=== PATIENT | male | born 1965 | race Two or more races ===

== ENCOUNTER 2017-03-05 00:43 | Inpatient (IN) | payer OTHER ==
--- NOTE | 2017-03-05 02:32 | HP ---
COWS - Scale Resting Pulse: 2= SD 101-120 Sweatin=Flushed/Facial Moisture Restless Observation: 1= Difficult to Sit Still Pupil Size: 1= Pupils >than Normal Bone or Joint Aches: 2= Severe Diffuse Aches Runny Nose/ Eye Tearin= Runny Nose/Eyes GI Upset > 30mins: 2= Nausea/Diarrhea Tremor Observation: 2= Slight Tremor Visible Yawning Observation: 1= 1-2x During Session Anxiety or Irritability: 2=Irritable/Anxious Goose Flesh Skin: 0=Smooth Skin COWS Score: 17 CIWA Score - CIWA Score Nausea/Vomitin Muscle Tremors: 2 Anxiety: 3 Agitation: 3 Paroxysmal Sweats: 2 Orientation: 1-Uncertain about Date Tacttile Disturbances: 1-Very Mild Itch/Numbness Auditory Disturbances: 0-None Visual Disturbances: 0-None Headache: 1-Very Mild CIWA-Ar Total Score: 15 Admission ROS S - HPI Chief Complaint: WITHDRAWAL SYMPTOMS Allergies/Adverse Reactions: Allergies Allergy/AdvReac Type Severity Reaction Status Date / Time Fish Containing Products Allergy Severe Verified 08/19/16 16:44 History of Present Illness: 51 Y.O.MAN WITH AN EXTENSIVE HISTORY OF ALCOHOL, MORPHINE AND CRACK COCAINE DEPENDENCE IS HERE FOR DETOX. Exam Limitations: No Limitations - Ebola screening Have you traveled outside of the country in the last 21 days: No - Review of Systems Constitutional: Chills, Diaphoresis, Loss of Appetite, Night Sweats, Changes in sleep, Unintentional Wgt. Loss EENT: reports: Tearing, Nose Congestion Respiratory: reports: No Symptoms reported Cardiac: reports: No Symptoms Reported GI: reports: Diarrhea, Vomiting, Abdominal cramping : reports: No Symptoms Reported Musculoskeletal: reports: Back Pain Integumentary: reports: No Symptoms Reported Neuro: reports: Tremors Endocrine: reports: No Symptoms Reported Hematology: reports: No Symptoms Reported Psychiatric: reports: Mood/Affect Appropiate, Anxious Other Systems: Reviewed and Negative Patient History - Patient Medical History Hx Anemia: No Hx Asthma: No Hx Chronic Obstructive Pulmonary Disease (COPD): No Hx Cancer: No Hx Cardiac Disorders: No Hx Congestive Heart Failure: No Hx Hypertension: Yes (on med) Hx Hypercholesterolemia: No Hx Pacemaker: No HX Cerebrovascular Accident: Yes (old cva [id number]) Hx Seizures: No Hx Dementia: No Hx Diabetes: Yes (on med ) Hx Gastrointestinal Disorders: No Hx Liver Disease: No Hx Genitourinary Disorders: No Hx Sexually Transmitted Disorders: No Hx Renal Disease (ESRD): No Hx Thyroid Disease: No Hx Human Immunodeficiency Virus (HIV): No (last 2015) Hx Hepatitis C: No Hx Depression: Yes (no med,did not want to see psychiatrist) Hx Suicide Attempt: No Hx Bipolar Disorder: No Hx Schizophrenia: No - Patient Surgical History Past Surgical History: Yes Hx Neurologic Surgery: No Hx Orthopedic Surgery: Yes (arthroscopic surgery of b/l shoulders,right knee) Anesthesia Reaction: No - PPD History Previous Implant?: Yes Documented Results: Negative w/o proof PPD to be Administered?: Yes - Reproductive History Patient is a Female of Child Bearing Age (11 -55 yrs old): No - Smoking Cessation Smoking history: Current every day smoker Have you smoked in the past 12 months: Yes Aproximately how many cigarettes per day: 10 Cigars Per Day: 0 Hx Chewing Tobacco Use: No Initiated information on smoking cessation: Yes 'Breaking Loose' booklet given: 03/05/17 - Substance & Tx. History Hx Alcohol Use: Yes Hx Substance Use: Yes Substance Use Type: Alcohol, Cocaine, Opiates, Prescribed Hx Substance Use Treatment: Yes (Detox and rehab ) - Substances Abused Alcohol Route: Oral Frequency: Daily Amount used: 3 pints of liquor and 12-15 cans of 22oz beers Age of first use: 18 Date of Last Use: 03/05/17 Crack Route: Smoking Frequency: Daily Amount used: $400 Age of first use: 32 Date of Last Use: 03/05/17 morphine Route: Oral Frequency: Daily Amount used: 120mg Age of first use: 51 Date of Last Use: 03/04/17 Family Disease History - Family Disease History Family Disease History: Other: Father (Heroin dependent ,) Admission Physical Exam BHS - Vital Signs Vital Signs: Last Vital Signs Temp Pulse Resp BP Pulse Ox 98.0 F 101 H 18 163/120 03/05/17 02:49 03/05/17 02:49 03/05/17 02:49 03/05/17 02:49 - Physical General Appearance: Yes: Tremorous, Irritable, Sweating, Anxious HEENTM: Yes: Normal Voice Respiratory: Yes: Chest Non-Tender, Lungs Clear, Normal Breath Sounds, No Respiratory Distress, No Accessory Muscle Use Neck: Yes: No masses,lesions,Nodules, Trachea in good position Breast: Yes: Breast Exam Deferred Cardiology: Yes: Regular Rhythm, Tachycardia Abdominal: Yes: Non Tender, Flat, Soft Genitourinary: Yes: Other (NO COMPLAINTS REPORTED) Back: Yes: Normal Inspection Musculoskeletal: Yes: Back pain, Muscle Pain, Other (B/L KNEE PAIN; AMBULATES WITH THE USE OF A CANE.) Extremities: Yes: Tremors Neurological: Yes: Alert, Normal Mood/Affect, Normal Response Integumentary: Yes: Normal Color, Dry, Warm Lymphatic: Yes: Within Normal Limits - Diagnostic (1) Alcohol dependence with uncomplicated withdrawal Current Visit: Yes Status: Chronic (2) Cocaine dependence Current Visit: Yes Status: Chronic (3) DM type 2 (diabetes mellitus, type 2) Current Visit: Yes Status: Chronic (4) Essential hypertension Current Visit: Yes Status: Chronic Cleared for Admission [facility] - Detox or Rehab [facility] Level of Care: Medically Managed Detox Regimen/Protocol: Valium (Refuses methadone ) [facility] Breath Alcohol Content Breath Alcohol Content: 0 Vital Signs - Vital Signs Vital Signs Refused: No Temperature: 98.0 F Temperature Source: Oral Pulse Rate: 101 Respiratory Rate: 18 Blood Pressure: 163/120 BP Location: Left Arm Blood Pressure Position: Sitting - Height Height: 6 ft 1 in - Weight Weight: 229 lb Weight Measurement Method: Standing Scale Body Mass Index (BMI): 30.2 Urine Drug Screen - Test Device Lot Number: [id number] Expiration Date: 11/03/18 - Control Is Test Valid: Yes - Results Drug Screen Negative: No Urine Drug Screen Results: JIMMY-Cocaine, OPI-Opiates
[2017-03-05] MEDS ORDERED: ACETAMINOPHEN 325 MG TABLET (FP) PO PRN (02:39)
[2017-03-05] MEDS ORDERED: P-EPHED 60MG/TRIPROLIDI 2.5MG TABLET PO PRN (02:39)
[2017-03-05] MEDS ORDERED: diphenhydrAMINE HCL 50 MG CAPSULE PO PRN (02:39)
[2017-03-05] MEDS ORDERED: hydrOXYzine PAMOATE 50 MG CAPSULE (FP) PO PRN (02:39)
[2017-03-05] MEDS ORDERED: MAGNESIUM HYDROX 2400MG/30ML ORAL SUSPENSION 30 ML CUP PO PRN (02:39)
[2017-03-05] MEDS ORDERED: MAG HYDROX/AL HYDROX/SIMETH 30 ML UNIT-DOSE CUP PO PRN (02:39)
[2017-03-05] MEDS ORDERED: MENTHOL/PHENOL 1 EACH UD MM PRN (02:39)
[2017-03-05] MEDS ORDERED: NICOTINE POLACRILEX 2 MG GUM BC PRN (02:39)
[2017-03-05] MEDS ORDERED: diazePAM 5 MG TABLET PO ONE (02:39)
[2017-03-05] MEDS ORDERED: LOPERAMIDE HCL 2 MG CAPSULE PO PRN (02:39)
[2017-03-05] MEDS ORDERED: MAGNESIUM CITRATE 300 ML BOTTLE PO PRN (02:39)
[2017-03-05] MEDS ORDERED: guaiFENesin/D-METHORPHAN HB 10 ML UNIT-DOSE CUPS PO PRN (02:39)
[2017-03-05 02:50] VITALS: BMI 30.2
[2017-03-05] MEDS ORDERED: cloNIDine HCL 0.1 MG TABLET PO PRN (03:05)
[2017-03-05] MEDS ORDERED: cloNIDine HCL 0.1 MG TABLET ONE (03:45)
[2017-03-05] MEDS: diazePAM 5 MG TABLET PO PRN ×3 (03:56→20:16)
[2017-03-05] MEDS: diazePAM 5 MG TABLET PO SCH ×3 (05:22→22:09)
[2017-03-05] MEDS: metFORMIN HCL 500 MG TABLET (FP) PO SCH (06:21)
[2017-03-05] MEDS: LISINOPRIL 20 MG TABLET (FP) PO SCH (10:15)
[2017-03-05] MEDS: PRENATAL VITAMINS W/ FOLIC ACID TABLET (FP) PO SCH (10:15)
[2017-03-05] MEDS: NIFEdipine E.R 60 MG TABLET (UD) PO SCH (10:15)
[2017-03-05] MEDS: IBUPROFEN 400 MG TABLET (FP) PO PRN (10:16)
[2017-03-05] MEDS ORDERED: cloNIDine HCL 0.1 MG TABLET PO ONE (10:45)
--- NOTE | 2017-03-05 10:47 | PN ---
[facility] CIWA - CIWA Score Nausea/Vomitin-No Nausea/No Vomiting Muscle Tremors: 3 Anxiety: 3 Agitation: 4-Moderately Restless Paroxysmal Sweats: 3 Orientation: 0-Oriented Tacttile Disturbances: 0-None Auditory Disturbances: 0-None Visual Disturbances: 0-None Headache: 0-None Present CIWA-Ar Total Score: 13 BHS COWS - Scale Resting Pulse: 1= NC 81-100 Sweatin=Flushed/Facial Moisture Restless Observation: 1= Difficult to Sit Still Pupil Size: 0= Normal to Room Light Bone or Joint Aches: 2= Severe Diffuse Aches Runny Nose/ Eye Tearin= Runny Nose/Eyes GI Upset > 30mins: 1= Stomach Cramp Tremor Observation of Outstretched Hands: 2= Slight Tremor Visible Yawning Observation: 2= >3x During Session Anxiety or Irritability: 2=Irritable/Anxious Goose Flesh Skin: 0=Smooth Skin COWS Score: 15 BHS Progress Note (SOAP) Subjective: I will not be detoxed with methadone for my oxycodone intake. I refuse all the methadone taper sweats agitation anxiety interrupted sleep Objective: 03/05/17 10:47 Vital Signs Temperature 98.1 F 03/05/17 10:12 Pulse Rate 91 H 03/05/17 10:12 Respiratory Rate 16 03/05/17 10:12 Blood Pressure 144/100 03/05/17 10:12 O2 Sat by Pulse Oximetry (%) Laboratory Tests 03/05/17 05:21 POC Glucometer 141 labs pending awake/alert ambulating no acute distress encouraged to start him on a methadone taper; pt refused started clonidine 0.1mg bid continue valium taper as pt requested. Assessment: 03/05/17 10:48 withdrawal sx Plan: continue detox increase fluids
[2017-03-05 16:40] LABS: URINE APPEARANCE CLEAR; URINE BILIRUBIN NEGATIVE (NEGATIVE); URINE BLOOD NEGATIVE (NEGATIVE); URINE COLOR YELLOW; URINE GLUCOSE (UA) NEGATIVE (NEGATIVE); URINE KETONE NEGATIVE (NEGATIVE); URINE LEUK ESTERASE NEGATIVE (NEGATIVE); URINE NITRITE NEGATIVE (NEGATIVE); URINE PROTEIN NEGATIVE (NEGATIVE); URINE UROBILINOGEN NEGATIVE E.U./dl (0.2-1.0)
[2017-03-05] MEDS: cloNIDine HCL 0.1 MG TABLET PO SCH (22:10)
[2017-03-05] MEDS: THIAMINE HCL 100 MG TABLET (FP) PO SCH (22:10)
[2017-03-06] MEDS: diazePAM 5 MG TABLET PO SCH ×3 (05:26→22:12)
[2017-03-06] MEDS: metFORMIN HCL 500 MG TABLET (FP) PO SCH (07:47)
[2017-03-06 10:35] LABS: MCH 30.2 pg (25.7-33.7); MEAN CELL VOLUME 91.5 fl (80-96); PLATELET COUNT 181 K/MM3 (134-434); RDW 14.5 % (11.9-15.9); WHITE BLOOD COUNT 7.7 K/mm3 (4.0-10.0)
[2017-03-06] MEDS: LISINOPRIL 20 MG TABLET (FP) PO SCH (10:36)
[2017-03-06] MEDS: PRENATAL VITAMINS W/ FOLIC ACID TABLET (FP) PO SCH (10:36)
[2017-03-06] MEDS: NIFEdipine E.R 60 MG TABLET (UD) PO SCH (10:37)
[2017-03-06] MEDS: cloNIDine HCL 0.1 MG TABLET PO SCH ×2 (10:37→22:12)
[2017-03-06] MEDS: diazePAM 5 MG TABLET PO PRN ×2 (10:37→20:31)
[2017-03-06 10:57] LABS: BILIRUBIN,TOTAL 0.3 mg/dL (0.2-1.0); CALCIUM 8.7 mg/dL (8.5-10.1); COCKROFT - GAULT 98.76; CREATININE 1.3 mg/dL (0.7-1.3); TOT PROT 5.7 g/dl (6.4-8.2)
--- NOTE | 2017-03-06 15:07 | PN ---
[facility] CIWA - CIWA Score Nausea/Vomitin-No Nausea/No Vomiting Muscle Tremors: 4-Moderate,w/Arms Extend Anxiety: 4-Mod. Anxious/Guarded Agitation: 4-Moderately Restless Paroxysmal Sweats: 3 Orientation: 0-Oriented Tacttile Disturbances: 0-None Auditory Disturbances: 0-None Visual Disturbances: 0-None Headache: 0-None Present CIWA-Ar Total Score: 15 S Progress Note (SOAP) Subjective: Tremors,anxiety,sweating,interrupted sleep,restless Objective: 03/06/17 15:06 Vital Signs - 8 hr 03/06/17 03/06/17 10:00 14:20 Temperature 98.1 F 97.9 F Pulse Rate 100 H 91 H Respiratory 20 20 Rate Blood Pressure 141/75 139/81 Laboratory Last Values WBC 7.7 K/mm3 (4.0-10.0) 03/06/17 07:00 RBC 5.23 M/mm3 (4.00-5.60) 03/06/17 07:00 Hgb 15.8 GM/dL (11.7-16.9) 03/06/17 07:00 Hct 47.9 % (35.4-49) 03/06/17 07:00 MCV 91.5 fl (80-96) 03/06/17 07:00 MCHC 33.0 g/dl (32.0-35.9) 03/06/17 07:00 RDW 14.5 % (11.9-15.9) 03/06/17 07:00 Plt Count 181 K/MM3 (134-434) 03/06/17 07:00 MPV 11.0 fl (7.5-11.1) 03/06/17 07:00 Sodium 145 mmol/L (136-145) 03/06/17 07:00 Potassium 4.2 mmol/L (3.5-5.1) 03/06/17 07:00 Chloride 111 mmol/L (98-107) H 03/06/17 07:00 Carbon Dioxide 28 mmol/L (21-32) 03/06/17 07:00 Anion Gap 6 (8-16) L 03/06/17 07:00 BUN 18 mg/dL (7-18) 03/06/17 07:00 Creatinine 1.3 mg/dL (0.7-1.3) 03/06/17 07:00 Creat Clearance w eGFR 58.20 (>60) 03/06/17 07:00 POC Glucometer 141 UNITS (()) 03/05/17 05:21 Random Glucose 115 mg/dL (74-106) H 03/06/17 07:00 Calcium 8.7 mg/dL (8.5-10.1) 03/06/17 07:00 Total Bilirubin 0.3 mg/dL (0.2-1.0) 03/06/17 07:00 AST 16 U/L (15-37) 03/06/17 07:00 ALT 28 U/L (12-78) 03/06/17 07:00 Alkaline Phosphatase 53 U/L (45-117) 03/06/17 07:00 Total Protein 5.7 g/dl (6.4-8.2) L 03/06/17 07:00 Albumin 3.0 g/dl (3.4-5.0) L 03/06/17 07:00 Urine Color Yellow 03/05/17 15:00 Urine Appearance Clear 03/05/17 15:00 Urine pH 5.0 (5.0-8.0) 03/05/17 15:00 Ur Specific [place] 1.025 (1.005-1.025) 03/05/17 15:00 Urine Protein Negative (NEGATIVE) 03/05/17 15:00 Urine Glucose (UA) Negative (NEGATIVE) 03/05/17 15:00 Urine Ketones Negative (NEGATIVE) 03/05/17 15:00 Urine Blood Negative (NEGATIVE) 03/05/17 15:00 Urine Nitrite Negative (NEGATIVE) 03/05/17 15:00 Urine Bilirubin Negative (NEGATIVE) 03/05/17 15:00 Urine Urobilinogen Negative E.U./dl (0.2-1.0) 03/05/17 15:00 Ur Leukocyte Esterase Negative (NEGATIVE) 03/05/17 15:00 labs noted Assessment: 03/06/17 15:07 Withdrawal sx. Plan: Continue detox
--- NOTE | 2017-03-06 19:24 | EKG ---
Test Reason : Blood Pressure : / mmHG Vent. Rate : 089 BPM Atrial Rate : 089 BPM P-R Int : 156 ms QRS Dur : 094 ms QT Int : 378 ms P-R-T Axes : 059 -19 017 degrees QTc Int : 459 ms NORMAL SINUS RHYTHM NORMAL ECG NO PREVIOUS ECGS AVAILABLE Confirmed by KARMEN LOPEZ MD ([id number]) on 03/06/2017 7:24:12 PM Referred By: Stephane Moore Confirmed By:KARMEN LOPEZ MD
[2017-03-06] MEDS: THIAMINE HCL 100 MG TABLET (FP) PO SCH (22:12)
[2017-03-07] MEDS: metFORMIN HCL 500 MG TABLET (FP) PO SCH (06:49)
[2017-03-07] MEDS: cloNIDine HCL 0.1 MG TABLET PO SCH ×2 (10:18→22:14)
[2017-03-07] MEDS: PRENATAL VITAMINS W/ FOLIC ACID TABLET (FP) PO SCH (10:18)
[2017-03-07] MEDS: LISINOPRIL 20 MG TABLET (FP) PO SCH (10:18)
[2017-03-07] MEDS: NIFEdipine E.R 60 MG TABLET (UD) PO SCH (10:18)
[2017-03-07] MEDS: diazePAM 5 MG TABLET PO SCH ×2 (10:18→22:15)
--- NOTE | 2017-03-07 11:55 | PN ---
BHS Progress Note (SOAP) Subjective: Sweating,interrupted sleep,restless Objective: 03/07/17 11:53 Vital Signs - 8 hr 03/07/17 03/07/17 06:00 09:54 Temperature 97.1 F L 98.4 F Pulse Rate 71 102 H Respiratory 20 20 Rate Blood Pressure 124/80 137/88 Laboratory Last Values WBC 7.7 K/mm3 (4.0-10.0) 03/06/17 07:00 RBC 5.23 M/mm3 (4.00-5.60) 03/06/17 07:00 Hgb 15.8 GM/dL (11.7-16.9) 03/06/17 07:00 Hct 47.9 % (35.4-49) 03/06/17 07:00 MCV 91.5 fl (80-96) 03/06/17 07:00 MCHC 33.0 g/dl (32.0-35.9) 03/06/17 07:00 RDW 14.5 % (11.9-15.9) 03/06/17 07:00 Plt Count 181 K/MM3 (134-434) 03/06/17 07:00 MPV 11.0 fl (7.5-11.1) 03/06/17 07:00 Sodium 145 mmol/L (136-145) 03/06/17 07:00 Potassium 4.2 mmol/L (3.5-5.1) 03/06/17 07:00 Chloride 111 mmol/L (98-107) H 03/06/17 07:00 Carbon Dioxide 28 mmol/L (21-32) 03/06/17 07:00 Anion Gap 6 (8-16) L 03/06/17 07:00 BUN 18 mg/dL (7-18) 03/06/17 07:00 Creatinine 1.3 mg/dL (0.7-1.3) 03/06/17 07:00 Creat Clearance w eGFR 58.20 (>60) 03/06/17 07:00 POC Glucometer 100 UNITS (()) 03/07/17 06:37 Random Glucose 115 mg/dL (74-106) H 03/06/17 07:00 Calcium 8.7 mg/dL (8.5-10.1) 03/06/17 07:00 Total Bilirubin 0.3 mg/dL (0.2-1.0) 03/06/17 07:00 AST 16 U/L (15-37) 03/06/17 07:00 ALT 28 U/L (12-78) 03/06/17 07:00 Alkaline Phosphatase 53 U/L (45-117) 03/06/17 07:00 Total Protein 5.7 g/dl (6.4-8.2) L 03/06/17 07:00 Albumin 3.0 g/dl (3.4-5.0) L 03/06/17 07:00 Urine Color Yellow 03/05/17 15:00 Urine Appearance Clear 03/05/17 15:00 Urine pH 5.0 (5.0-8.0) 03/05/17 15:00 Ur Specific [place] 1.025 (1.005-1.025) 03/05/17 15:00 Urine Protein Negative (NEGATIVE) 03/05/17 15:00 Urine Glucose (UA) Negative (NEGATIVE) 03/05/17 15:00 Urine Ketones Negative (NEGATIVE) 03/05/17 15:00 Urine Blood Negative (NEGATIVE) 03/05/17 15:00 Urine Nitrite Negative (NEGATIVE) 03/05/17 15:00 Urine Bilirubin Negative (NEGATIVE) 03/05/17 15:00 Urine Urobilinogen Negative E.U./dl (0.2-1.0) 03/05/17 15:00 Ur Leukocyte Esterase Negative (NEGATIVE) 03/05/17 15:00 RPR Titer Nonreactive (NONREACTIVE) 03/06/17 07:00 labs noted Assessment: 03/07/17 11:54 Withdrawal sx. Plan: Continue detox
[2017-03-07] MEDS: diazePAM 5 MG TABLET PO PRN ×2 (13:46→17:41)
[2017-03-07] MEDS: THIAMINE HCL 100 MG TABLET (FP) PO SCH (22:14)
[2017-03-08] MEDS: metFORMIN HCL 500 MG TABLET (FP) PO SCH (07:39)
--- NOTE | 2017-03-08 08:38 | PN ---
BHS Progress Note (SOAP) Subjective: irritable agitation interrupted sleep Objective: 03/08/17 08:37 Vital Signs Temperature 98.9 F 03/08/17 06:42 Pulse Rate 75 03/08/17 06:42 Respiratory Rate 18 03/08/17 06:42 Blood Pressure 143/83 03/08/17 06:42 O2 Sat by Pulse Oximetry (%) awake/alert ambulating no acute distress Assessment: 03/08/17 08:38 withdrawal sx Plan: continue detox d/c in am
[2017-03-08] MEDS: PRENATAL VITAMINS W/ FOLIC ACID TABLET (FP) PO SCH (10:17)
[2017-03-08] MEDS: NIFEdipine E.R 60 MG TABLET (UD) PO SCH (10:18)
[2017-03-08] MEDS: LISINOPRIL 20 MG TABLET (FP) PO SCH (10:18)
[2017-03-08] MEDS: cloNIDine HCL 0.1 MG TABLET PO SCH ×2 (10:18→22:07)
[2017-03-08] MEDS: diazePAM 5 MG TABLET PO SCH ×2 (10:18→22:07)
[2017-03-08] MEDS: IBUPROFEN 400 MG TABLET (FP) PO PRN (16:30)
[2017-03-08] MEDS: THIAMINE HCL 100 MG TABLET (FP) PO SCH (22:07)
[2017-03-09] MEDS: metFORMIN HCL 500 MG TABLET (FP) PO SCH (08:09)
--- NOTE | 2017-03-09 08:52 | DS ---
[facility] Detox Discharge Summary Admission Date: 03/05/17 Discharge Date: 03/09/17 - History Present History: Alcohol Dependence, Cocaine Dependence - Physical Exam Results Vital Signs: Vital Signs Temperature 97.7 F 03/09/17 06:32 Pulse Rate 75 03/09/17 06:32 Respiratory Rate 18 03/09/17 06:32 Blood Pressure 129/76 03/09/17 06:32 O2 Sat by Pulse Oximetry (%) - Treatment Hospital Course: Detox Protocol Followed, Detoxed Safely, Responded well, Discharged Condition Good, Rehab Referral Accepted - Medication Discharge Medications: Ambulatory Orders Lisinopril [Prinivil -] 40 mg PO DAILY 08/19/16 Metformin HCl [Glucophage -] 500 mg PO BID 08/19/16 - Diagnosis (1) Alcohol dependence with uncomplicated withdrawal Current Visit: Yes Status: Chronic (2) Cocaine dependence Current Visit: Yes Status: Chronic Qualifiers: Substance use status: uncomplicated Qualified Code(s): F14.20 - Cocaine dependence, uncomplicated (3) DM type 2 (diabetes mellitus, type 2) Current Visit: Yes Status: Chronic Qualifiers: Diabetes mellitus complication status: without complication (4) Essential hypertension Current Visit: Yes Status: Chronic (5) Depression Current Visit: No Status: Acute (6) Old cerebrovascular accident without late effect Current Visit: No Status: Resolved (7) Opioid dependence with withdrawal Current Visit: No Status: Acute (8) Sleep apnea Current Visit: No Status: Acute - AMA Did Patient Leave Against Medical Advice: No
[2017-03-09] MEDS: LISINOPRIL 20 MG TABLET (FP) PO SCH (09:55)
[2017-03-09] MEDS: PRENATAL VITAMINS W/ FOLIC ACID TABLET (FP) PO SCH (09:55)
[2017-03-09] MEDS: cloNIDine HCL 0.1 MG TABLET PO SCH (09:56)
[2017-03-09] MEDS: NIFEdipine E.R 60 MG TABLET (UD) PO SCH (09:56)
[2017-03-09] MEDS ORDERED: diazePAM 5 MG TABLET PO SCH (10:00)
[2017-03-09 10:48] VITALS: BP 132/84; PULSE 91; TEMP 99.1
== END 2017-03-09 11:36 | disposition short-term general hospital (02) | DRG 773 ==
LOC: YASAS 00:43 → Y6N 02:59
PROVIDERS: ADMIT Internal Medicine; ATTEND Internal Medicine
PROC: HZ2ZZZZ Detoxification Services for Substance Abuse Treatment (ICD-10-PCS; principal; 2017-03-09)
DX: F11.23 Opioid dependence with withdrawal (principal); F14.20 Cocaine dependence, uncomplicated; F10.230 Alcohol dependence with withdrawal, uncomplicated; F32.9 Major depressive disorder, single episode, unspecified; E11.9 Type 2 diabetes mellitus without complications; I10 Essential (primary) hypertension; G47.30 Sleep apnea, unspecified; Z86.73 Personal history of transient ischemic attack (TIA), and cerebral infarction without residual deficits
CPT/HCPCS: 36415; 80053; 81003; 85027; 86593; 93005; 93010; J0735

== ENCOUNTER 2017-05-05 18:18 | Inpatient (IN) | payer OTHER ==
[2017-05-05 18:32] VITALS: BMI 29.7
--- NOTE | 2017-05-05 19:14 | HP ---
CIWA Score - CIWA Score Nausea/Vomitin Muscle Tremors: 3 Anxiety: 3 Agitation: 3 Paroxysmal Sweats: 2 Orientation: 0-Oriented Tacttile Disturbances: 2-Mild Itch/Numbness/Burn Auditory Disturbances: 2-Mild Harshness/Frighten Visual Disturbances: 2-Mild Sensitivity Headache: 2-Mild CIWA-Ar Total Score: 22 Admission ROS BHS - HPI Chief Complaint: i need help to stop drinking alcohol and cocaine Allergies/Adverse Reactions: Allergies Allergy/AdvReac Type Severity Reaction Status Date / Time Fish Containing Products Allergy Severe Verified 05/06/17 01:28 No Known Drug Allergies Allergy Verified 05/06/17 01:28 History of Present Illness: this 52 years old male with alcohol and cocaine dependence,seeking detox,last treatment [facility] 03/05/17 to 03/09/17 multiple admissions keep relapsing nicotine dependence multiple medical problem type 2 dm,htn, longest period of sobriety 10years Exam Limitations: No Limitations - Ebola screening Have you been sick,other than usual withdrawal symptoms: No - Review of Systems Constitutional: Loss of Appetite, Malaise, Night Sweats, Changes in sleep, Weakness EENT: reports: Nose Congestion Respiratory: reports: No Symptoms reported Cardiac: reports: Palpitations GI: reports: Diarrhea, Nausea, Vomiting, Abdominal cramping : reports: No Symptoms Reported Musculoskeletal: reports: Back Pain, Muscle Pain Integumentary: reports: Dryness Neuro: reports: Headache, Tremors Endocrine: reports: No Symptoms Reported Hematology: reports: No Symptoms Reported Psychiatric: reports: No Sypmtoms Reported, Judgement Intact, Mood/Affect Appropiate Patient History - Patient Medical History Hx Anemia: No Hx Asthma: No Hx Chronic Obstructive Pulmonary Disease (COPD): No Hx Cancer: No Hx Cardiac Disorders: No Hx Congestive Heart Failure: No Hx Hypertension: Yes (BP: 167/93) Hx Hypercholesterolemia: No Hx Pacemaker: No HX Cerebrovascular Accident: Yes (old cva [id number] cyrus [id number] ) Hx Seizures: No Hx Dementia: No Hx Diabetes: Yes (BGM: 93mg/dl) Hx Gastrointestinal Disorders: No Hx Liver Disease: No Hx Genitourinary Disorders: No Hx Sexually Transmitted Disorders: No Hx Renal Disease (ESRD): No Hx Thyroid Disease: No Hx Human Immunodeficiency Virus (HIV): No (last 2016 negative) Hx Hepatitis C: No Hx Depression: No (Denies) Hx Suicide Attempt: No Hx Bipolar Disorder: No Hx Schizophrenia: No Other Medical History: no suicidal,no homicidal - Patient Surgical History Past Surgical History: Yes Hx Neurologic Surgery: No Hx Cataract Extraction: No Hx Cardiac Surgery: No Hx Lung Surgery: No Hx Breast Surgery: No Hx Breast Biopsy: No Hx Abdominal Surgery: No Hx Appendectomy: No Hx Cholecystectomy: No Hx Genitourinary Surgery: No Hx Section: No Hx Orthopedic Surgery: Yes (arthroscopic surgery of b/l shoulders,right knee) Anesthesia Reaction: No - PPD History Previous Implant?: Yes Documented Results: Negative w/proof Date: 03/07/17 Results: 0mm PPD to be Administered?: No - Smoking Cessation Smoking history: Current every day smoker Have you smoked in the past 12 months: Yes Aproximately how many cigarettes per day: 20 Cigars Per Day: 0 Hx Chewing Tobacco Use: No Initiated information on smoking cessation: No 'Breaking Loose' booklet given: 05/05/17 - Substance & Tx. History Hx Alcohol Use: Yes Hx Substance Use: Yes Substance Use Type: Alcohol, Cocaine Hx Substance Use Treatment: Yes ([facility] 03/05/17 to 03/09/17) - Substances Abused Alcohol Route: Oral Frequency: Daily Amount used: Beer 1 case, Vodka 2-3 pints Age of first use: 18 Date of Last Use: 05/05/17 Cocaine Route: Smoking Frequency: Daily Amount used: $400 Age of first use: 18 Date of Last Use: 05/05/17 Family Disease History - Family Disease History Family Disease History: Other: Father (Heroin dependent ,) Admission Physical Exam [facility] - Vital Signs Vital Signs: Vital Signs - 24 hr 05/05/17 18:27 Temperature 96.9 F L Pulse Rate 90 Respiratory 20 Rate Blood Pressure 167/93 - Physical General Appearance: Yes: Moderate Distress, Tremorous, Irritable, Sweating, Anxious HEENTM: Yes: Normal ENT Inspection, Normocephalic, SHANNEN, Pharynx Normal Respiratory: Yes: Lungs Clear, Normal Breath Sounds, No Respiratory Distress Neck: Yes: Supple, Trachea in good position Breast: Yes: Within Normal Limits Cardiology: Yes: Within Normal Limits, Regular Rhythm, Regular Rate, S1, S2 Abdominal: Yes: Within Normal Limits, Normal Bowel Sounds, Non Tender, Soft Genitourinary: Yes: Within Normal Limits Back: Yes: Muscle Spasm Musculoskeletal: Yes: Back pain, Muscle Pain Extremities: Yes: Normal Range of Motion, Tremors Neurological: Yes: rip tailer II-XII NML intact, Fully Oriented, Alert, Motor Strength 5/5 Integumentary: Yes: Dry Lymphatic: Yes: Within Normal Limits - Diagnostic (1) Alcohol dependence with uncomplicated withdrawal Status: Acute (2) Cocaine dependence Status: Chronic Qualifiers: Substance use status: uncomplicated Qualified Code(s): F14.20 - Cocaine dependence, uncomplicated (3) DM type 2 (diabetes mellitus, type 2) Status: Chronic Qualifiers: Diabetes mellitus complication status: without complication (4) Essential hypertension Status: Chronic (5) Nicotine dependence Status: Chronic Cleared for Admission [facility] - Detox or Rehab [facility] Level of Care: Medically Managed Detox Regimen/Protocol: Valium [facility] Breath Alcohol Content Breath Alcohol Content: 0.058 Urine Drug Screen - Results Drug Screen Negative: No Urine Drug Screen Results: JIMMY-Cocaine
[2017-05-05] MEDS ORDERED: hydrOXYzine PAMOATE 50 MG CAPSULE (FP) PO PRN (19:33)
[2017-05-05] MEDS ORDERED: diazePAM 5 MG TABLET PO ONE (19:33)
[2017-05-05] MEDS ORDERED: LOPERAMIDE HCL 2 MG CAPSULE PO PRN (19:33)
[2017-05-05] MEDS ORDERED: MENTHOL/PHENOL 1 EACH UD MM PRN (19:33)
[2017-05-05] MEDS ORDERED: MAG HYDROX/AL HYDROX/SIMETH 30 ML UNIT-DOSE CUP PO PRN (19:33)
[2017-05-05] MEDS ORDERED: MAGNESIUM CITRATE 300 ML BOTTLE PO PRN (19:33)
[2017-05-05] MEDS ORDERED: MAGNESIUM HYDROX 2400MG/30ML ORAL SUSPENSION 30 ML CUP PO PRN (19:33)
[2017-05-05] MEDS ORDERED: guaiFENesin/D-METHORPHAN HB 10 ML UNIT-DOSE CUPS PO PRN (19:33)
[2017-05-05] MEDS ORDERED: P-EPHED 60MG/TRIPROLIDI 2.5MG TABLET PO PRN (19:33)
[2017-05-05] MEDS ORDERED: ACETAMINOPHEN 325 MG TABLET (FP) PO PRN (19:33)
[2017-05-05] MEDS: LISINOPRIL 20 MG TABLET (FP) PO SCH (20:12)
[2017-05-05] MEDS: THIAMINE HCL 100 MG TABLET (FP) PO SCH (22:19)
[2017-05-05] MEDS: diazePAM 5 MG TABLET PO SCH (22:19)
[2017-05-05] MEDS: diphenhydrAMINE HCL 50 MG CAPSULE PO PRN (22:20)
[2017-05-05 23:11] LABS: URINE APPEARANCE SLCLOUDY; URINE BILIRUBIN NEGATIVE (NEGATIVE); URINE BLOOD NEGATIVE (NEGATIVE); URINE COLOR YELLOW; URINE GLUCOSE (UA) NEGATIVE (NEGATIVE); URINE KETONE NEGATIVE (NEGATIVE); URINE LEUK ESTERASE NEGATIVE (NEGATIVE); URINE NITRITE NEGATIVE (NEGATIVE); URINE PROTEIN 1+ (NEGATIVE); URINE UROBILINOGEN NEGATIVE mg/dL (0.2-1.0)
[2017-05-05 23:22] LABS: URINE MUCUS RARE; URINE RBC 1 /hpf (0-3); URINE WBC 5 /hpf (3-5)
[2017-05-06] MEDS: diazePAM 5 MG TABLET PO SCH ×3 (05:56→22:25)
[2017-05-06] MEDS: metFORMIN HCL 500 MG TABLET (FP) PO SCH ×2 (06:22→17:30)
[2017-05-06 10:10] LABS: ALBUMIN 3.3 g/dl (3.4-5.0); ANION GAP 8 (8-16); CALCIUM 8.7 mg/dL (8.5-10.1); CO2 25 mmol/L (21-32); GLUCOSE,RANDOM 103 mg/dL (74-106); SGOT/AST 23 U/L (15-37); SGPT/ALT 33 U/L (12-78)
[2017-05-06 10:11] LABS: MCH 30.2 pg (25.7-33.7); MCHC 33.1 g/dl (32.0-35.9); MEAN CELL VOLUME 91.1 fl (80-96); MEAN PLT VOLUME 10.7 fl (7.5-11.1); PLATELET COUNT 188 K/MM3 (134-434); WHITE BLOOD COUNT 8.8 K/mm3 (4.0-10.0)
[2017-05-06 10:12] LABS: ALK PHOS 56 U/L (45-117); BILIRUBIN,TOTAL 0.5 mg/dL (0.2-1.0); TOT PROT 6.3 g/dl (6.4-8.2)
[2017-05-06] MEDS: NIFEdipine E.R 60 MG TABLET (UD) PO SCH (10:22)
[2017-05-06] MEDS: diazePAM 5 MG TABLET PO PRN ×2 (10:22→17:36)
[2017-05-06] MEDS: PRENATAL VITAMINS W/ FOLIC ACID TABLET (FP) PO SCH (10:22)
[2017-05-06] MEDS: LISINOPRIL 20 MG TABLET (FP) PO SCH (10:22)
--- NOTE | 2017-05-06 11:29 | EKG ---
Test Reason : Blood Pressure : / mmHG Vent. Rate : 082 BPM Atrial Rate : 082 BPM P-R Int : 150 ms QRS Dur : 092 ms QT Int : 400 ms P-R-T Axes : 057 010 030 degrees QTc Int : 467 ms NORMAL SINUS RHYTHM POSSIBLE LEFT ATRIAL ENLARGEMENT BORDERLINE ECG WHEN COMPARED WITH ECG OF 05-MAR-2017 02:41, NO SIGNIFICANT CHANGE WAS FOUND Confirmed by GUICHO MAJOR, JOSSELYN ([id number]) on 05/06/2017 11:28:32 AM Referred By: Stephane Moore Confirmed By:JOSSELYN LINDO MD
--- NOTE | 2017-05-06 13:01 | PN ---
[facility] CIWA - CIWA Score Nausea/Vomitin-Mild Nausea/No Vomiting Muscle Tremors: 2 Anxiety: 4-Mod. Anxious/Guarded Agitation: 2 Paroxysmal Sweats: 3 Orientation: 0-Oriented Tacttile Disturbances: 2-Mild Itch/Numbness/Burn Auditory Disturbances: 0-None Visual Disturbances: 2-Mild Sensitivity Headache: 0-None Present CIWA-Ar Total Score: 16 [facility] Progress Note (SOAP) Subjective: Diarrhea, Interrupted Sleep, Sweating, Body Aches. Objective: PT. A & O X 3, OBSERVED AMBULATING ON UNIT. NO ACUTE DISTRESS. PT. DENIES CHEST PAIN. 05/06/17 12:58 Vital Signs Temperature 97.5 F L 05/06/17 09:41 Pulse Rate 91 H 05/06/17 09:41 Respiratory Rate 20 05/06/17 09:41 Blood Pressure 118/71 05/06/17 09:41 O2 Sat by Pulse Oximetry (%) Laboratory Tests 05/05/17 05/05/17 05/06/17 19:01 23:00 05:55 WBC RBC Hgb Hct MCV MCH MCHC RDW Plt Count MPV Sodium Potassium Chloride Carbon Dioxide Anion Gap BUN Creatinine Creat Clearance w eGFR POC Glucometer 93 127 Random Glucose Calcium Total Bilirubin AST ALT Alkaline Phosphatase Total Protein Albumin Urine Color Yellow Urine Appearance Slcloudy Urine pH 5.0 Urine Protein 1+ H Urine Glucose (UA) Negative Urine Ketones Negative Urine Blood Negative Urine Nitrite Negative Urine Bilirubin Negative Urine Urobilinogen Negative Ur Leukocyte Esterase Negative Urine RBC 1 Urine WBC 5 Urine Mucus Rare 05/06/17 05/06/17 07:30 07:30 WBC 8.8 RBC 5.25 Hgb 15.8 Hct 47.8 MCV 91.1 MCH 30.2 MCHC 33.1 RDW 15.0 Plt Count 188 MPV 10.7 Sodium 142 Potassium 3.6 Chloride 109 H Carbon Dioxide 25 Anion Gap 8 BUN 12 D Creatinine 1.0 D Creat Clearance w eGFR > 60 POC Glucometer Random Glucose 103 Calcium 8.7 Total Bilirubin 0.5 D AST 23 D ALT 33 Alkaline Phosphatase 56 Total Protein 6.3 L Albumin 3.3 L Urine Color Urine Appearance Urine pH Urine Protein Urine Glucose (UA) Urine Ketones Urine Blood Urine Nitrite Urine Bilirubin Urine Urobilinogen Ur Leukocyte Esterase Urine RBC Urine WBC Urine Mucus LABS NOTED. RPR RESULT PENDING. 05/06/17 13:00 Assessment: 05/06/17 12:59 WITHDRAWAL SYMPTOMS. Plan: CONTINUE DETOX.
[2017-05-06] MEDS: THIAMINE HCL 100 MG TABLET (FP) PO SCH (22:24)
[2017-05-06] MEDS: diphenhydrAMINE HCL 50 MG CAPSULE PO PRN (22:25)
[2017-05-07] MEDS: diazePAM 5 MG TABLET PO PRN ×2 (05:47→17:33)
[2017-05-07] MEDS: metFORMIN HCL 500 MG TABLET (FP) PO SCH ×2 (07:12→17:30)
[2017-05-07] MEDS: LISINOPRIL 20 MG TABLET (FP) PO SCH (10:26)
[2017-05-07] MEDS: NIFEdipine E.R 60 MG TABLET (UD) PO SCH (10:26)
[2017-05-07] MEDS: PRENATAL VITAMINS W/ FOLIC ACID TABLET (FP) PO SCH (10:26)
[2017-05-07] MEDS: diazePAM 5 MG TABLET PO SCH ×2 (10:27→22:23)
--- NOTE | 2017-05-07 16:08 | PN ---
S CIWA - CIWA Score Nausea/Vomitin Muscle Tremors: 3 Anxiety: 3 Agitation: 2 Paroxysmal Sweats: 3 Orientation: 0-Oriented Tacttile Disturbances: 2-Mild Itch/Numbness/Burn Auditory Disturbances: 0-None Visual Disturbances: 0-None Headache: 0-None Present CIWA-Ar Total Score: 18 [facility] Progress Note (SOAP) Subjective: Interrupted sleep, Sweating, Body Aches, Tremors, Diarrhea, Vomiting. Objective: PT. A & O X 3, OBSERVED AMBULATING ON UNIT. NO ACUTE DISTRESS. PT. DENIES CHEST PAIN. 05/07/17 16:04 Vital Signs Temperature 98.9 F 05/07/17 13:24 Pulse Rate 101 H 05/07/17 13:24 Respiratory Rate 18 05/07/17 13:24 Blood Pressure 131/80 05/07/17 13:24 O2 Sat by Pulse Oximetry (%) Laboratory Tests 05/05/17 05/05/17 05/06/17 19:01 23:00 05:55 WBC RBC Hgb Hct MCV MCH MCHC RDW Plt Count MPV Sodium Potassium Chloride Carbon Dioxide Anion Gap BUN Creatinine Creat Clearance w eGFR POC Glucometer 93 127 Random Glucose Calcium Total Bilirubin AST ALT Alkaline Phosphatase Total Protein Albumin Urine Color Yellow Urine Appearance Slcloudy Urine pH 5.0 Ur Specific [place] >= 1.030 H Urine Protein 1+ H Urine Glucose (UA) Negative Urine Ketones Negative Urine Blood Negative Urine Nitrite Negative Urine Bilirubin Negative Urine Urobilinogen Negative Ur Leukocyte Esterase Negative Urine RBC 1 Urine WBC 5 Urine Mucus Rare RPR Titer 05/06/17 05/06/17 05/06/17 07:30 07:30 07:30 WBC 8.8 RBC 5.25 Hgb 15.8 Hct 47.8 MCV 91.1 MCH 30.2 MCHC 33.1 RDW 15.0 Plt Count 188 MPV 10.7 Sodium 142 Potassium 3.6 Chloride 109 H Carbon Dioxide 25 Anion Gap 8 BUN 12 D Creatinine 1.0 D Creat Clearance w eGFR > 60 POC Glucometer Random Glucose 103 Calcium 8.7 Total Bilirubin 0.5 D AST 23 D ALT 33 Alkaline Phosphatase 56 Total Protein 6.3 L Albumin 3.3 L Urine Color Urine Appearance Urine pH Ur Specific [place] Urine Protein Urine Glucose (UA) Urine Ketones Urine Blood Urine Nitrite Urine Bilirubin Urine Urobilinogen Ur Leukocyte Esterase Urine RBC Urine WBC Urine Mucus RPR Titer Nonreactive 05/06/17 05/07/17 16:29 05:06 WBC RBC Hgb Hct MCV MCH MCHC RDW Plt Count MPV Sodium Potassium Chloride Carbon Dioxide Anion Gap BUN Creatinine Creat Clearance w eGFR POC Glucometer 136 164 Random Glucose Calcium Total Bilirubin AST ALT Alkaline Phosphatase Total Protein Albumin Urine Color Urine Appearance Urine pH Ur Specific [place] Urine Protein Urine Glucose (UA) Urine Ketones Urine Blood Urine Nitrite Urine Bilirubin Urine Urobilinogen Ur Leukocyte Esterase Urine RBC Urine WBC Urine Mucus RPR Titer LABS NOTED. Assessment: 05/07/17 16:05 WITHDRAWAL SYMPTOMS. Plan: CONTINUE DETOX.
[2017-05-07] MEDS: IBUPROFEN 400 MG TABLET (FP) PO PRN (17:32)
[2017-05-07] MEDS: THIAMINE HCL 100 MG TABLET (FP) PO SCH (22:23)
[2017-05-07] MEDS: diphenhydrAMINE HCL 50 MG CAPSULE PO PRN (22:23)
[2017-05-08] MEDS: diazePAM 5 MG TABLET PO PRN (06:09)
[2017-05-08] MEDS: metFORMIN HCL 500 MG TABLET (FP) PO SCH ×2 (06:15→17:22)
[2017-05-08] MEDS: LISINOPRIL 20 MG TABLET (FP) PO SCH (11:10)
[2017-05-08] MEDS: diazePAM 5 MG TABLET PO SCH ×2 (11:10→21:58)
[2017-05-08] MEDS: PRENATAL VITAMINS W/ FOLIC ACID TABLET (FP) PO SCH (11:10)
[2017-05-08] MEDS: NIFEdipine E.R 60 MG TABLET (UD) PO SCH (11:11)
[2017-05-08] MEDS: IBUPROFEN 400 MG TABLET (FP) PO PRN (11:12)
--- NOTE | 2017-05-08 15:21 | PN ---
S Progress Note (SOAP) Subjective: Vomiting, Diarrhea, H/A, Body Aches, Interrupted sleep, Sweating. Objective: PT. A & O X 3, OBSERVED AMBULATING AMBULATING ON UNIT. NO ACUTE DISTRESS. 05/08/17 15:20 Vital Signs Temperature 99.5 F 05/08/17 14:06 Pulse Rate 104 H 05/08/17 14:06 Respiratory Rate 18 05/08/17 14:06 Blood Pressure 130/81 05/08/17 14:06 O2 Sat by Pulse Oximetry (%) Laboratory Tests 05/05/17 05/05/17 05/06/17 19:01 23:00 05:55 WBC RBC Hgb Hct MCV MCH MCHC RDW Plt Count MPV Sodium Potassium Chloride Carbon Dioxide Anion Gap BUN Creatinine Creat Clearance w eGFR POC Glucometer 93 127 Random Glucose Calcium Total Bilirubin AST ALT Alkaline Phosphatase Total Protein Albumin Urine Color Yellow Urine Appearance Slcloudy Urine pH 5.0 Ur Specific [place] >= 1.030 H Urine Protein 1+ H Urine Glucose (UA) Negative Urine Ketones Negative Urine Blood Negative Urine Nitrite Negative Urine Bilirubin Negative Urine Urobilinogen Negative Ur Leukocyte Esterase Negative Urine RBC 1 Urine WBC 5 Urine Mucus Rare RPR Titer 05/06/17 05/06/17 05/06/17 07:30 07:30 07:30 WBC 8.8 RBC 5.25 Hgb 15.8 Hct 47.8 MCV 91.1 MCH 30.2 MCHC 33.1 RDW 15.0 Plt Count 188 MPV 10.7 Sodium 142 Potassium 3.6 Chloride 109 H Carbon Dioxide 25 Anion Gap 8 BUN 12 D Creatinine 1.0 D Creat Clearance w eGFR > 60 POC Glucometer Random Glucose 103 Calcium 8.7 Total Bilirubin 0.5 D AST 23 D ALT 33 Alkaline Phosphatase 56 Total Protein 6.3 L Albumin 3.3 L Urine Color Urine Appearance Urine pH Ur Specific [place] Urine Protein Urine Glucose (UA) Urine Ketones Urine Blood Urine Nitrite Urine Bilirubin Urine Urobilinogen Ur Leukocyte Esterase Urine RBC Urine WBC Urine Mucus RPR Titer Nonreactive 05/06/17 05/07/17 05/07/17 16:29 05:06 16:20 WBC RBC Hgb Hct MCV MCH MCHC RDW Plt Count MPV Sodium Potassium Chloride Carbon Dioxide Anion Gap BUN Creatinine Creat Clearance w eGFR POC Glucometer 136 164 193 Random Glucose Calcium Total Bilirubin AST ALT Alkaline Phosphatase Total Protein Albumin Urine Color Urine Appearance Urine pH Ur Specific [place] Urine Protein Urine Glucose (UA) Urine Ketones Urine Blood Urine Nitrite Urine Bilirubin Urine Urobilinogen Ur Leukocyte Esterase Urine RBC Urine WBC Urine Mucus RPR Titer 05/08/17 06:14 WBC RBC Hgb Hct MCV MCH MCHC RDW Plt Count MPV Sodium Potassium Chloride Carbon Dioxide Anion Gap BUN Creatinine Creat Clearance w eGFR POC Glucometer 103 Random Glucose Calcium Total Bilirubin AST ALT Alkaline Phosphatase Total Protein Albumin Urine Color Urine Appearance Urine pH Ur Specific [place] Urine Protein Urine Glucose (UA) Urine Ketones Urine Blood Urine Nitrite Urine Bilirubin Urine Urobilinogen Ur Leukocyte Esterase Urine RBC Urine WBC Urine Mucus RPR Titer LABS NOTED. Assessment: 05/08/17 15:20 WITHDRAWAL SYMPTOMS. Plan: CONTINUE DETOX.
[2017-05-08] MEDS: THIAMINE HCL 100 MG TABLET (FP) PO SCH (21:58)
[2017-05-08] MEDS: diphenhydrAMINE HCL 50 MG CAPSULE PO PRN (21:58)
[2017-05-09 06:27] VITALS: BP 130/82; PULSE 90; TEMP 97
[2017-05-09] MEDS: metFORMIN HCL 500 MG TABLET (FP) PO SCH (07:48)
[2017-05-09] MEDS ORDERED: diazePAM 5 MG TABLET PO SCH (10:00)
--- NOTE | 2017-05-09 11:50 | DS ---
[facility] Detox Discharge Summary Admission Date: 05/05/17 Discharge Date: 05/09/17 - History Present History: Alcohol Dependence, Cocaine Dependence Pertinent Past History: DMT2 CVA HTN - Physical Exam Results Vital Signs: Vital Signs Temperature 97 F L 05/09/17 06:26 Pulse Rate 90 05/09/17 06:26 Respiratory Rate 18 05/09/17 06:26 Blood Pressure 130/82 05/09/17 06:26 O2 Sat by Pulse Oximetry (%) Pertinent Admission Physical Exam Findings: Withdrawal symptoms Laboratory Tests 05/05/17 05/05/17 05/06/17 19:01 23:00 05:55 WBC RBC Hgb Hct MCV MCH MCHC RDW Plt Count MPV Sodium Potassium Chloride Carbon Dioxide Anion Gap BUN Creatinine Creat Clearance w eGFR POC Glucometer 93 127 Random Glucose Calcium Total Bilirubin AST ALT Alkaline Phosphatase Total Protein Albumin Urine Color Yellow Urine Appearance Slcloudy Urine pH 5.0 Ur Specific [place] >= 1.030 H Urine Protein 1+ H Urine Glucose (UA) Negative Urine Ketones Negative Urine Blood Negative Urine Nitrite Negative Urine Bilirubin Negative Urine Urobilinogen Negative Ur Leukocyte Esterase Negative Urine RBC 1 Urine WBC 5 Urine Mucus Rare RPR Titer 05/06/17 05/06/17 05/06/17 07:30 07:30 07:30 WBC 8.8 RBC 5.25 Hgb 15.8 Hct 47.8 MCV 91.1 MCH 30.2 MCHC 33.1 RDW 15.0 Plt Count 188 MPV 10.7 Sodium 142 Potassium 3.6 Chloride 109 H Carbon Dioxide 25 Anion Gap 8 BUN 12 D Creatinine 1.0 D Creat Clearance w eGFR > 60 POC Glucometer Random Glucose 103 Calcium 8.7 Total Bilirubin 0.5 D AST 23 D ALT 33 Alkaline Phosphatase 56 Total Protein 6.3 L Albumin 3.3 L Urine Color Urine Appearance Urine pH Ur Specific [place] Urine Protein Urine Glucose (UA) Urine Ketones Urine Blood Urine Nitrite Urine Bilirubin Urine Urobilinogen Ur Leukocyte Esterase Urine RBC Urine WBC Urine Mucus RPR Titer Nonreactive 05/06/17 05/07/17 05/07/17 16:29 05:06 16:20 WBC RBC Hgb Hct MCV MCH MCHC RDW Plt Count MPV Sodium Potassium Chloride Carbon Dioxide Anion Gap BUN Creatinine Creat Clearance w eGFR POC Glucometer 136 164 193 Random Glucose Calcium Total Bilirubin AST ALT Alkaline Phosphatase Total Protein Albumin Urine Color Urine Appearance Urine pH Ur Specific [place] Urine Protein Urine Glucose (UA) Urine Ketones Urine Blood Urine Nitrite Urine Bilirubin Urine Urobilinogen Ur Leukocyte Esterase Urine RBC Urine WBC Urine Mucus RPR Titer 05/08/17 05/08/17 05/09/17 06:14 16:22 06:03 WBC RBC Hgb Hct MCV MCH MCHC RDW Plt Count MPV Sodium Potassium Chloride Carbon Dioxide Anion Gap BUN Creatinine Creat Clearance w eGFR POC Glucometer 103 182 101 Random Glucose Calcium Total Bilirubin AST ALT Alkaline Phosphatase Total Protein Albumin Urine Color Urine Appearance Urine pH Ur Specific [place] Urine Protein Urine Glucose (UA) Urine Ketones Urine Blood Urine Nitrite Urine Bilirubin Urine Urobilinogen Ur Leukocyte Esterase Urine RBC Urine WBC Urine Mucus RPR Titer Labs noted - Treatment Hospital Course: Detox Protocol Followed, Detoxed Safely, Responded well, Discharged Condition Good - Medication Discharge Medications: Ambulatory Orders Lisinopril [Prinivil -] 40 mg PO DAILY 08/19/16 Metformin HCl [Glucophage -] 500 mg PO BID 08/19/16 Nifedipine ER [Procardia XL -] 60 mg PO DAILY 05/05/17 - Diagnosis (1) Nicotine dependence Status: Chronic (2) Alcohol dependence with uncomplicated withdrawal Status: Acute (3) Cocaine dependence Status: Chronic Qualifiers: Substance use status: uncomplicated Qualified Code(s): F14.20 - Cocaine dependence, uncomplicated (4) DM type 2 (diabetes mellitus, type 2) Status: Chronic Qualifiers: Diabetes mellitus complication status: without complication (5) Essential hypertension Status: Chronic (6) CVA (cerebral vascular accident) Status: Chronic - AMA Did Patient Leave Against Medical Advice: No
== END 2017-05-09 09:31 | disposition home or self-care (01) | DRG 774 ==
LOC: YASAS 18:18 → Y3N 19:15
PROVIDERS: ADMIT Internal Medicine; ATTEND Internal Medicine
PROC: HZ2ZZZZ Detoxification Services for Substance Abuse Treatment (ICD-10-PCS; principal; 2017-05-05)
DX: F10.230 Alcohol dependence with withdrawal, uncomplicated (principal); F14.20 Cocaine dependence, uncomplicated; F17.210 Nicotine dependence, cigarettes, uncomplicated; E11.9 Type 2 diabetes mellitus without complications; I10 Essential (primary) hypertension; Z91.013 Allergy to seafood; Z86.73 Personal history of transient ischemic attack (TIA), and cerebral infarction without residual deficits
CPT/HCPCS: 36415; 80053; 81003; 81015; 85027; 86593; 93005; 93010

== ENCOUNTER 2019-05-31 13:41 | Inpatient (IN) | payer OTHER ==
[2019-05-31 14:37] VITALS: BMI 28.3
--- NOTE | 2019-05-31 15:34 | HP ---
CIWA Score Nausea/Vomitin-Mild Nausea/No Vomiting Muscle Tremors: 4-Moderate,w/Arms Extend Anxiety: 4-Mod. Anxious/Guarded Agitation: 4-Moderately Restless Paroxysmal Sweats: 3 Orientation: 0-Oriented Tacttile Disturbances: 0-None Auditory Disturbances: 0-None Visual Disturbances: 0-None Headache: 1-Very Mild CIWA-Ar Total Score: 17 - Admission Criteria [facility] Guidelines: Admission for Medically Managed Detox: Requires at least one of the followin. CIWA greater than 12 2. Seizures within the past 24 hours 3. Delirium tremens within the past 24 hours 4. Hallucinations within the past 24 hours 5. Acute intervention needed for co occurring medical disorder 6. Acute intervention needed for co occurring psychiatric disorder 7. Severe withdrawal that cannot be handled at a lower level of care (continued vomiting, continued diarrhea, abnormal vital signs) requiring intravenous medication and/or fluids 8. Admission ROS [facility] - [facility] Chief Complaint: My dad recently and started drinking now I need detox and try to stay sober. Allergies/Adverse Reactions: Allergies Allergy/AdvReac Type Severity Reaction Status Date / Time Fish Containing Products Allergy Severe Hives Verified 05/31/19 14:29 No Known Drug Allergies Allergy Verified 05/31/19 14:29 History of Present Illness: pt is a 54yr old male with a history of alcohol and cocaine dependence seeking detox for treatment. Pt detox here a year ago and maintained sober until the of his dad three weeks ago and relapsed. Exam Limitations: No Limitations - Ebola screening Have you traveled outside of the country in the last 21 days: No Have you had contact with anyone from an Ebola affected area: No Have you been sick,other than usual withdrawal symptoms: No Do you have a fever: No - Review of Systems Constitutional: Chills, Diaphoresis, Night Sweats, Changes in sleep EENT: reports: Tearing, Nose Congestion Respiratory: reports: No Symptoms reported Cardiac: reports: No Symptoms Reported GI: reports: Diarrhea, Poor Appetite, Poor Fluid Intake, Abdominal cramping : reports: No Symptoms Reported Musculoskeletal: reports: No Symptoms Reported Integumentary: reports: Flushing, Sweating Neuro: reports: Headache, Tingling, Tremors Endocrine: reports: Excessive Sweating, Flushing, Intolerance to Heat, Increased Hunger Hematology: reports: No Symptoms Reported Psychiatric: reports: Judgement Intact, Mood/Affect Appropiate, Orientated x3, Agitated, Anxious Other Systems: Reviewed and Negative Patient History - Patient Medical History Hx Anemia: No Hx Asthma: No Hx Chronic Obstructive Pulmonary Disease (COPD): No Hx Cancer: No Hx Cardiac Disorders: No Hx Congestive Heart Failure: No Hx Hypertension: Yes (BP: 167/93) Hx Hypercholesterolemia: No Hx Pacemaker: No HX Cerebrovascular Accident: Yes (old cva [id number] cyrus aguilar "semi stroke " no consequences) Hx Seizures: No Hx Dementia: No Hx Diabetes: Yes (BGM: 93mg/dl) Hx Gastrointestinal Disorders: No Hx Liver Disease: No Hx Genitourinary Disorders: No Hx Sexually Transmitted Disorders: No Hx Renal Disease (ESRD): No Hx Thyroid Disease: No Hx Human Immunodeficiency Virus (HIV): No (last 2016 negative) Hx Hepatitis C: No (negative) Hx Depression: Yes (refuses to see psych) Hx Suicide Attempt: No Hx Bipolar Disorder: No Hx Schizophrenia: No - Patient Surgical History Past Surgical History: Yes Hx Neurologic Surgery: No Hx Cataract Extraction: No Hx Cardiac Surgery: No Hx Lung Surgery: No Hx Breast Surgery: No Hx Breast Biopsy: No Hx Abdominal Surgery: No Hx Appendectomy: No Hx Cholecystectomy: No Hx Genitourinary Surgery: No Hx Section: No Hx Orthopedic Surgery: Yes (arthroscopic surgery of b/l shoulders,right knee) Anesthesia Reaction: No - PPD History Previous Implant?: Yes Documented Results: Negative w/o proof PPD to be Administered?: No - Reproductive History Patient is a Female of Child Bearing Age (11 -55 yrs old): No - Smoking Cessation Smoking history: Current every day smoker Have you smoked in the past 12 months: Yes Aproximately how many cigarettes per day: 10 Cigars Per Day: 0 Hx Chewing Tobacco Use: No Initiated information on smoking cessation: Yes 'Breaking Loose' booklet given: 05/31/19 - Substance & Tx. History Hx Alcohol Use: Yes Hx Substance Use: No Substance Use Type: Alcohol Hx Substance Use Treatment: Yes (last detox a year ago[facility]) - Substances abused Alcohol Substance route: Oral Frequency: Daily Amount used: 2-3 PINTS VODKA, 10-15 CANS OF BEER Age of first use: 18 Date of last use: 05/31/19 Family Disease History - Family Disease History Family Disease History: Other: Father ( 3weeks ago biological dad) Admission Physical Exam [facility] - Vital Signs Vital Signs: Vital Signs - 24 hr 05/31/19 14:34 Temperature 98.6 F Pulse Rate 101 H Respiratory 17 Rate Blood Pressure 178/96 H - Physical General Appearance: Yes: Appropriately Dressed, Moderate Distress, Tremorous, Irritable, Sweating, Anxious HEENTM: Yes: Normal Voice, Nasal Congestion, Rhinorrhea Respiratory: Yes: Lungs Clear, Normal Breath Sounds, No Respiratory Distress Neck: Yes: No masses,lesions,Nodules Breast: Yes: Within Normal Limits Cardiology: Yes: Regular Rhythm, Regular Rate, S1, S2 Abdominal: Yes: Normal Bowel Sounds Genitourinary: Yes: Within Normal Limits Back: Yes: Normal Inspection Musculoskeletal: Yes: full range of Motion, Gait Steady, Pelvis Stable, Back pain Extremities: Yes: Normal Capillary Refill, Normal Inspection, Non-Tender, Tremors Neurological: Yes: Fully Oriented, Alert, Normal Response Integumentary: Yes: Normal Color, Diaphoresis Lymphatic: Yes: Within Normal Limits - Diagnostic (1) Alcohol dependence with uncomplicated withdrawal Current Visit: Yes Status: Chronic (2) Depression Current Visit: Yes Status: Acute (3) Nicotine dependence Current Visit: Yes Status: Chronic Qualifiers: Nicotine product type: cigarettes Substance use status: uncomplicated Qualified Code(s): F17.210 - Nicotine dependence, cigarettes, uncomplicated (4) Opioid dependence with withdrawal Current Visit: Yes Status: Chronic (5) CVA (cerebral vascular accident) Current Visit: Yes Status: Chronic (6) Cocaine dependence, uncomplicated Current Visit: Yes Status: Chronic (7) DM type 2 (diabetes mellitus, type 2) Current Visit: Yes Status: Chronic Qualifiers: Diabetes mellitus termination clerk insulin use: without mcc use Diabetes mellitus complication status: without complication Qualified Code(s): E11.9 - Type 2 diabetes mellitus without complications (8) Essential hypertension Current Visit: No Status: Chronic Cleared for Admission [facility] - Detox or Rehab [facility] Level of Care: Medically Managed Detox Regimen/Protocol: Librium Breathalyzer - Breathalyzer Breathalyzer: 0.023 Urine Drug Screen - Test Device Lot number: [id number] Expiration date: 03/03/21 - Control Is test valid?: Yes - Results Drug screen NEGATIVE: No Urine drug screen results: JIMMY-Cocaine, BZO-Benzodiazepines Inpatient Rehab Admission - Rehab Decision to Admit Inpatient rehab admission?: No
[2019-05-31] MEDS ORDERED: MAGNESIUM HYDROX 2400MG/30ML ORAL SUSPENSION 30 ML CUP PO PRN (15:50)
[2019-05-31] MEDS ORDERED: chlordiazePOXIDE HCL 25 MG CAPSULE PO PRN (15:50)
[2019-05-31] MEDS ORDERED: ONDANSETRON *ODT* 4 MG TABLET SL PRN (15:50)
[2019-05-31] MEDS ORDERED: MENTHOL/PHENOL 1 EACH UD MM PRN (15:50)
[2019-05-31] MEDS ORDERED: MAG HYDROX/AL HYDROX/SIMETH 30 ML UNIT-DOSE CUP PO PRN (15:50)
[2019-05-31] MEDS ORDERED: BISMUTH SUBSALICYLATE 524 MG/30 ML UD PO PRN (15:50)
[2019-05-31] MEDS ORDERED: ACETAMINOPHEN 325 MG TABLET (FP) PO PRN ×2 (15:50)
[2019-05-31] MEDS ORDERED: NICOTINE POLACRILEX 4 MG GUM BUC PRN (15:50)
[2019-05-31] MEDS ORDERED: P-EPHED 60MG/TRIPROLIDI 2.5MG TABLET PO PRN (15:50)
[2019-05-31] MEDS ORDERED: MAGNESIUM CITRATE 300 ML BOTTLE PO PRN (15:50)
[2019-05-31] MEDS: metFORMIN HCL 500 MG TABLET (FP) PO SCH (16:49)
[2019-05-31] MEDS: LISINOPRIL 20 MG TABLET (FP) PO SCH (16:53)
[2019-05-31] MEDS ORDERED: chlordiazePOXIDE HCL 25 MG CAPSULE PO SCH (17:00)
[2019-05-31] MEDS: NIFEdipine E.R 60 MG TABLET (UD) PO SCH (17:19)
--- NOTE | 2019-05-31 17:43 | EKG ---
Test Reason : Blood Pressure : / mmHG Vent. Rate : 096 BPM Atrial Rate : 096 BPM P-R Int : 132 ms QRS Dur : 092 ms QT Int : 368 ms P-R-T Axes : 059 -11 047 degrees QTc Int : 464 ms NORMAL SINUS RHYTHM POSSIBLE LEFT ATRIAL ENLARGEMENT BORDERLINE ECG WHEN COMPARED WITH ECG OF 05-AUG-2017 18:43, NO SIGNIFICANT CHANGE WAS FOUND Confirmed by YANELY MAJOR, GABRIELLA ([id number]) on 05/31/2019 5:43:30 PM Referred By: Confirmed By:GABRIELLA [place] MD
[2019-05-31] MEDS: IBUPROFEN 400 MG TABLET (FP) PO PRN (21:06)
--- NOTE | 2019-05-31 21:11 | PN ---
S Progress Note Note: Patient states unable to take Libruim because it makes him sick. Past detoxes patient given Valium. Will change detox regimen per patients request.
[2019-05-31] MEDS ORDERED: diazePAM 5 MG TABLET PO PRN (21:12)
[2019-05-31] MEDS: diazePAM 5 MG TABLET PO SCH (22:16)
[2019-05-31] MEDS: THIAMINE HCL 100 MG TABLET (FP) PO SCH (22:16)
[2019-06-01] MEDS: diazePAM 5 MG TABLET PO SCH (05:33)
[2019-06-01] MEDS: metFORMIN HCL 500 MG TABLET (FP) PO SCH ×2 (07:10→16:44)
[2019-06-01] MEDS: NICOTINE 21 MG/24 HOURS TOPICAL PATCH TD SCH (10:39)
[2019-06-01] MEDS: NIFEdipine E.R 60 MG TABLET (UD) PO SCH (10:39)
[2019-06-01] MEDS: LISINOPRIL 20 MG TABLET (FP) PO SCH (10:39)
[2019-06-01] MEDS: PRENATAL VITAMINS W/ FOLIC ACID TABLET (FP) PO SCH (10:39)
[2019-06-01 11:42] LABS: HEMOGLOBIN 15.8 GM/dL (11.7-16.9); MCH 31.4 pg (25.7-33.7); MCHC 33.6 g/dl (32.0-35.9); MEAN CELL VOLUME 93.2 fl (80-96); MEAN PLT VOLUME 9.9 fl (7.5-11.1); PLATELET COUNT 231 K/MM3 (134-434); RBC 5.05 M/mm3 (4.00-5.60); RDW 14.4 % (11.9-15.9); WHITE BLOOD COUNT 5.6 K/mm3 (4.0-10.0)
[2019-06-01 11:54] LABS: BILIRUBIN,TOTAL 0.5 mg/dL (0.2-1); BLOOD UREA NITROGEN 16.5 mg/dL (7-18); CALCIUM 8.8 mg/dL (8.5-10.1); POTASSIUM 4.1 mmol/L (3.5-5.1); TOT PROT 5.9 g/dl (6.4-8.2)
[2019-06-01] MEDS ORDERED: chlordiazePOXIDE HCL 25 MG CAPSULE PO PRN (12:02)
--- NOTE | 2019-06-01 12:14 | PN ---
S CIWA - CIWA Score Nausea/Vomitin-No Nausea/No Vomiting Muscle Tremors: 3 Anxiety: 3 Agitation: 3 Paroxysmal Sweats: 3 Orientation: 0-Oriented Tacttile Disturbances: 0-None Auditory Disturbances: 0-None Visual Disturbances: 0-None Headache: 0-None Present CIWA-Ar Total Score: 12 S Progress Note (SOAP) Subjective: i want to be put back on my librium taper. sweats shakes body aches irritable interrupted sleep Objective: 06/01/19 12:11 Vital Signs Temperature 98.0 F 06/01/19 09:41 Pulse Rate 83 06/01/19 09:41 Respiratory Rate 18 06/01/19 09:41 Blood Pressure 147/75 06/01/19 09:41 O2 Sat by Pulse Oximetry (%) Laboratory Tests 05/31/19 06/01/19 06/01/19 16:12 05:35 07:30 WBC 5.6 RBC 5.05 Hgb 15.8 Hct 47.0 MCV 93.2 MCH 31.4 MCHC 33.6 RDW 14.4 Plt Count 231 MPV 9.9 Sodium Potassium Chloride Carbon Dioxide Anion Gap BUN Creatinine Est GFR (CKD-EPI)AfAm Est GFR (CKD-EPI)NonAf POC Glucometer 118 138 Random Glucose Calcium Total Bilirubin AST ALT Alkaline Phosphatase Total Protein Albumin 06/01/19 07:30 WBC RBC Hgb Hct MCV MCH MCHC RDW Plt Count MPV Sodium 142 Potassium 4.1 Chloride 108 H Carbon Dioxide 29 Anion Gap 5 L BUN 16.5 Creatinine 1.0 Est GFR (CKD-EPI)AfAm 98.46 Est GFR (CKD-EPI)NonAf 84.95 POC Glucometer Random Glucose 112 H Calcium 8.8 Total Bilirubin 0.5 AST 20 ALT 28 Alkaline Phosphatase 51 Total Protein 5.9 L Albumin 3.0 L labs noted aaox3 ambulating no acute distress Assessment: 06/01/19 12:15 withdrawals Plan: continue detox increase fluids valium d/c re-started librium taper as per pt request.
[2019-06-01] MEDS: IBUPROFEN 400 MG TABLET (FP) PO PRN (13:01)
[2019-06-01] MEDS: chlordiazePOXIDE HCL 25 MG CAPSULE PO SCH ×2 (16:43→22:44)
[2019-06-01] MEDS: THIAMINE HCL 100 MG TABLET (FP) PO SCH (22:44)
[2019-06-02] MEDS ORDERED: chlordiazePOXIDE HCL 25 MG CAPSULE PO SCH (05:00)
[2019-06-02] MEDS: chlordiazePOXIDE HCL 25 MG CAPSULE PO SCH ×3 (05:37→16:43)
[2019-06-02] MEDS ORDERED: diazePAM 5 MG TABLET PO SCH (06:00)
[2019-06-02] MEDS: metFORMIN HCL 500 MG TABLET (FP) PO SCH ×2 (06:48→17:01)
[2019-06-02] MEDS: NIFEdipine E.R 60 MG TABLET (UD) PO SCH (10:09)
[2019-06-02] MEDS: NICOTINE 21 MG/24 HOURS TOPICAL PATCH TD SCH (10:09)
[2019-06-02] MEDS: PRENATAL VITAMINS W/ FOLIC ACID TABLET (FP) PO SCH (10:09)
[2019-06-02] MEDS: LISINOPRIL 20 MG TABLET (FP) PO SCH (10:10)
--- NOTE | 2019-06-02 11:03 | PN ---
[facility] CIWA - CIWA Score Nausea/Vomitin-No Nausea/No Vomiting Muscle Tremors: 3 Anxiety: 2 Agitation: 3 Paroxysmal Sweats: 2 Orientation: 0-Oriented Tacttile Disturbances: 0-None Auditory Disturbances: 0-None Visual Disturbances: 0-None Headache: 0-None Present CIWA-Ar Total Score: 10 S Progress Note (SOAP) Subjective: sweats shakes interrupted sleep body aches Objective: 06/02/19 11:01 Vital Signs Temperature 97.9 F 06/02/19 09:38 Pulse Rate 85 06/02/19 09:38 Respiratory Rate 18 06/02/19 09:38 Blood Pressure 147/99 06/02/19 09:38 O2 Sat by Pulse Oximetry (%) Laboratory Tests 05/31/19 06/01/19 06/01/19 16:12 05:35 07:30 WBC 5.6 RBC 5.05 Hgb 15.8 Hct 47.0 MCV 93.2 MCH 31.4 MCHC 33.6 RDW 14.4 Plt Count 231 MPV 9.9 Sodium Potassium Chloride Carbon Dioxide Anion Gap BUN Creatinine Est GFR (CKD-EPI)AfAm Est GFR (CKD-EPI)NonAf POC Glucometer 118 138 Random Glucose Calcium Total Bilirubin AST ALT Alkaline Phosphatase Total Protein Albumin RPR Titer 06/01/19 06/01/19 06/01/19 07:30 07:30 16:34 WBC RBC Hgb Hct MCV MCH MCHC RDW Plt Count MPV Sodium 142 Potassium 4.1 Chloride 108 H Carbon Dioxide 29 Anion Gap 5 L BUN 16.5 Creatinine 1.0 Est GFR (CKD-EPI)AfAm 98.46 Est GFR (CKD-EPI)NonAf 84.95 POC Glucometer 139 Random Glucose 112 H Calcium 8.8 Total Bilirubin 0.5 AST 20 ALT 28 Alkaline Phosphatase 51 Total Protein 5.9 L Albumin 3.0 L RPR Titer Nonreactive 06/02/19 05:36 WBC RBC Hgb Hct MCV MCH MCHC RDW Plt Count MPV Sodium Potassium Chloride Carbon Dioxide Anion Gap BUN Creatinine Est GFR (CKD-EPI)AfAm Est GFR (CKD-EPI)NonAf POC Glucometer 196 Random Glucose Calcium Total Bilirubin AST ALT Alkaline Phosphatase Total Protein Albumin RPR Titer labs noted aaox3 ambulating no acute distress Assessment: 06/02/19 11:02 withdrawals Plan: continue detox increase fluids diet changed to a diabetic diet as per pt request.
[2019-06-02] MEDS: IBUPROFEN 400 MG TABLET (FP) PO PRN ×2 (17:00→23:04)
[2019-06-02] MEDS: THIAMINE HCL 100 MG TABLET (FP) PO SCH (22:03)
[2019-06-03] MEDS ORDERED: chlordiazePOXIDE HCL 10 MG CAPSULE PO SCH (05:00)
[2019-06-03] MEDS ORDERED: diazePAM 5 MG TABLET PO ONE (06:00)
[2019-06-03] MEDS: metFORMIN HCL 500 MG TABLET (FP) PO SCH ×2 (06:01→17:20)
[2019-06-03] MEDS: chlordiazePOXIDE HCL 25 MG CAPSULE PO SCH ×4 (06:01→22:33)
[2019-06-03] MEDS: NICOTINE 21 MG/24 HOURS TOPICAL PATCH TD SCH (10:18)
[2019-06-03] MEDS: NIFEdipine E.R 60 MG TABLET (UD) PO SCH (10:18)
[2019-06-03] MEDS: LISINOPRIL 20 MG TABLET (FP) PO SCH (10:19)
[2019-06-03] MEDS: PRENATAL VITAMINS W/ FOLIC ACID TABLET (FP) PO SCH (10:19)
--- NOTE | 2019-06-03 10:37 | PN ---
[facility] CIWA - CIWA Score Nausea/Vomitin-No Nausea/No Vomiting Muscle Tremors: None Anxiety: 3 Agitation: 0-Normal Activity Paroxysmal Sweats: 3 Orientation: 0-Oriented Tacttile Disturbances: 1-Very Mild Itch/Numbness Auditory Disturbances: 0-None Visual Disturbances: 0-None Headache: 2-Mild CIWA-Ar Total Score: 9 S Progress Note (SOAP) Subjective: c/o sweats, anxiety, headache, and interrupted sleep. Objective: 06/03/19 10:37 Vital Signs 06/03/19 06/03/19 06/03/19 03:30 07:06 09:37 Temperature 97.2 F L 98.4 F Pulse Rate 80 98 H Respiratory 18 18 18 Rate Blood Pressure 138/82 139/86 Lab Results WBC 5.6 K/mm3 (4.0-10.0) 06/01/19 07:30 RBC 5.05 M/mm3 (4.00-5.60) 06/01/19 07:30 Hgb 15.8 GM/dL (11.7-16.9) 06/01/19 07:30 Hct 47.0 % (35.4-49) 06/01/19 07:30 MCV 93.2 fl (80-96) 06/01/19 07:30 MCHC 33.6 g/dl (32.0-35.9) 06/01/19 07:30 RDW 14.4 % (11.9-15.9) 06/01/19 07:30 Plt Count 231 K/MM3 (134-434) 06/01/19 07:30 Sodium 142 mmol/L (136-145) 06/01/19 07:30 Potassium 4.1 mmol/L (3.5-5.1) 06/01/19 07:30 Chloride 108 mmol/L (98-107) H 06/01/19 07:30 Carbon Dioxide 29 mmol/L (21-32) 06/01/19 07:30 Anion Gap 5 MMOL/L (8-16) L 06/01/19 07:30 BUN 16.5 mg/dL (7-18) 06/01/19 07:30 Creatinine 1.0 mg/dL (0.55-1.3) 06/01/19 07:30 Random Glucose 112 mg/dL (74-106) H 06/01/19 07:30 Calcium 8.8 mg/dL (8.5-10.1) 06/01/19 07:30 Labs noted. Assessment: 06/03/19 10:37 AOX3, in no acute respiratory distress. Full ROM, ambulating in the unit. Withdrawal symptoms. Plan: continue detox.
[2019-06-03] MEDS: IBUPROFEN 400 MG TABLET (FP) PO PRN ×2 (14:41→20:41)
[2019-06-03] MEDS: MELATONIN 5 MG TABLETS PO PRN (21:41)
[2019-06-03] MEDS: THIAMINE HCL 100 MG TABLET (FP) PO SCH (21:42)
[2019-06-04] MEDS ORDERED: chlordiazePOXIDE HCL 10 MG CAPSULE PO SCH (05:00)
[2019-06-04] MEDS: chlordiazePOXIDE HCL 10 MG CAPSULE PO SCH ×3 (06:11→17:29)
[2019-06-04] MEDS: metFORMIN HCL 500 MG TABLET (FP) PO SCH ×2 (07:35→16:34)
[2019-06-04] MEDS: PRENATAL VITAMINS W/ FOLIC ACID TABLET (FP) PO SCH (11:13)
[2019-06-04] MEDS: NIFEdipine E.R 60 MG TABLET (UD) PO SCH (11:13)
[2019-06-04] MEDS: LISINOPRIL 20 MG TABLET (FP) PO SCH (11:13)
[2019-06-04] MEDS: NICOTINE 21 MG/24 HOURS TOPICAL PATCH TD SCH (12:53)
[2019-06-04] MEDS: IBUPROFEN 400 MG TABLET (FP) PO PRN (14:39)
--- NOTE | 2019-06-04 15:31 | PN ---
[facility] CIWA - CIWA Score Nausea/Vomitin-No Nausea/No Vomiting Muscle Tremors: 3 Anxiety: 3 Agitation: 3 Paroxysmal Sweats: 2 Orientation: 0-Oriented Tacttile Disturbances: 0-None Auditory Disturbances: 0-None Visual Disturbances: 0-None Headache: 0-None Present CIWA-Ar Total Score: 11 S Progress Note (SOAP) Subjective: Anxious, chills, sweating, diarrhea, feeling depressed (denies SI/HI, refused to see Psychiatrist here at [facility]). Patient stated he's supposed to be discharged to [facility] on Wednesday for Psychiatric care. Objective: 06/04/19 15:29 Last Vital Signs Temp Pulse Resp BP Pulse Ox 97.7 F 94 H 18 131/75 06/04/19 13:43 06/04/19 13:43 06/04/19 13:43 06/04/19 13:43 Laboratory Tests 05/31/19 06/01/19 06/01/19 16:12 05:35 07:30 WBC 5.6 RBC 5.05 Hgb 15.8 Hct 47.0 MCV 93.2 MCH 31.4 MCHC 33.6 RDW 14.4 Plt Count 231 MPV 9.9 Sodium Potassium Chloride Carbon Dioxide Anion Gap BUN Creatinine Est GFR (CKD-EPI)AfAm Est GFR (CKD-EPI)NonAf POC Glucometer 118 138 Random Glucose Calcium Total Bilirubin AST ALT Alkaline Phosphatase Total Protein Albumin RPR Titer 06/01/19 06/01/19 06/01/19 07:30 07:30 16:34 WBC RBC Hgb Hct MCV MCH MCHC RDW Plt Count MPV Sodium 142 Potassium 4.1 Chloride 108 H Carbon Dioxide 29 Anion Gap 5 L BUN 16.5 Creatinine 1.0 Est GFR (CKD-EPI)AfAm 98.46 Est GFR (CKD-EPI)NonAf 84.95 POC Glucometer 139 Random Glucose 112 H Calcium 8.8 Total Bilirubin 0.5 AST 20 ALT 28 Alkaline Phosphatase 51 Total Protein 5.9 L Albumin 3.0 L RPR Titer Nonreactive 06/02/19 06/02/19 06/03/19 05:36 16:24 16:21 WBC RBC Hgb Hct MCV MCH MCHC RDW Plt Count MPV Sodium Potassium Chloride Carbon Dioxide Anion Gap BUN Creatinine Est GFR (CKD-EPI)AfAm Est GFR (CKD-EPI)NonAf POC Glucometer 196 126 104 Random Glucose Calcium Total Bilirubin AST ALT Alkaline Phosphatase Total Protein Albumin RPR Titer Labs reviewed: elevated glucose due to DM Assessment: 06/04/19 15:30 Withdrawal sxs Plan: Continue detox Encouraged PO water intake Patient awaits admission to [facility] for Psychiatric care post discharge
[2019-06-04] MEDS: MELATONIN 5 MG TABLETS PO PRN (21:57)
[2019-06-04] MEDS: THIAMINE HCL 100 MG TABLET (FP) PO SCH (21:57)
[2019-06-05] MEDS ORDERED: chlordiazePOXIDE HCL 10 MG CAPSULE PO ONE (05:00)
[2019-06-05] MEDS: chlordiazePOXIDE HCL 10 MG CAPSULE PO SCH ×2 (06:36→17:13)
[2019-06-05] MEDS: metFORMIN HCL 500 MG TABLET (FP) PO SCH ×2 (06:44→17:14)
[2019-06-05] MEDS: PRENATAL VITAMINS W/ FOLIC ACID TABLET (FP) PO SCH (10:16)
[2019-06-05] MEDS: LISINOPRIL 20 MG TABLET (FP) PO SCH (10:16)
[2019-06-05] MEDS: NIFEdipine E.R 60 MG TABLET (UD) PO SCH (10:16)
[2019-06-05] MEDS: NICOTINE 21 MG/24 HOURS TOPICAL PATCH TD SCH (10:16)
--- NOTE | 2019-06-05 11:45 | PN ---
S CIWA - CIWA Score Nausea/Vomitin-No Nausea/No Vomiting Muscle Tremors: 2 Anxiety: 1-Mildly Anxious Agitation: 1-Slight > Activity Paroxysmal Sweats: No Perspiration Orientation: 0-Oriented Tacttile Disturbances: 0-None Auditory Disturbances: 0-None Visual Disturbances: 0-None Headache: 0-None Present CIWA-Ar Total Score: 4 [facility] Progress Note (SOAP) Subjective: anxiety Objective: 06/05/19 11:45 Vital Signs Temperature 97.2 F L 06/05/19 10:00 Pulse Rate 81 06/05/19 10:00 Respiratory Rate 17 06/05/19 10:00 Blood Pressure 153/91 06/05/19 10:00 O2 Sat by Pulse Oximetry (%) aaox3 ambulating no acute distress Assessment: 06/05/19 11:49 mild withdrawals Plan: continue detox d/c in am
[2019-06-05] MEDS: IBUPROFEN 400 MG TABLET (FP) PO PRN (13:36)
[2019-06-05] MEDS: THIAMINE HCL 100 MG TABLET (FP) PO SCH (22:48)
[2019-06-06] MEDS ORDERED: chlordiazePOXIDE HCL 10 MG CAPSULE PO ONE (05:00)
[2019-06-06] MEDS: IBUPROFEN 400 MG TABLET (FP) PO PRN ×2 (06:51→15:49)
[2019-06-06] MEDS: metFORMIN HCL 500 MG TABLET (FP) PO SCH ×2 (06:51→17:28)
--- NOTE | 2019-06-06 08:48 | DS ---
[facility] Detox Discharge Summary Admission Date: 05/31/19 Discharge Date: 06/06/19 - History Present History: Alcohol Dependence, Cocaine Dependence, Opioid Dependence - Physical Exam Results Vital Signs: Vital Signs Temperature 97.7 F 06/06/19 06:00 Pulse Rate 77 06/06/19 06:00 Respiratory Rate 18 06/06/19 06:00 Blood Pressure 117/75 06/06/19 06:00 O2 Sat by Pulse Oximetry (%) Pertinent Admission Physical Exam Findings: pt arrived in withdrawals Laboratory Tests 05/31/19 06/01/19 06/01/19 16:12 05:35 07:30 WBC 5.6 RBC 5.05 Hgb 15.8 Hct 47.0 MCV 93.2 MCH 31.4 MCHC 33.6 RDW 14.4 Plt Count 231 MPV 9.9 Sodium Potassium Chloride Carbon Dioxide Anion Gap BUN Creatinine Est GFR (CKD-EPI)AfAm Est GFR (CKD-EPI)NonAf POC Glucometer 118 138 Random Glucose Calcium Total Bilirubin AST ALT Alkaline Phosphatase Total Protein Albumin RPR Titer 06/01/19 06/01/19 06/01/19 07:30 07:30 16:34 WBC RBC Hgb Hct MCV MCH MCHC RDW Plt Count MPV Sodium 142 Potassium 4.1 Chloride 108 H Carbon Dioxide 29 Anion Gap 5 L BUN 16.5 Creatinine 1.0 Est GFR (CKD-EPI)AfAm 98.46 Est GFR (CKD-EPI)NonAf 84.95 POC Glucometer 139 Random Glucose 112 H Calcium 8.8 Total Bilirubin 0.5 AST 20 ALT 28 Alkaline Phosphatase 51 Total Protein 5.9 L Albumin 3.0 L RPR Titer Nonreactive 06/02/19 06/02/19 06/03/19 05:36 16:24 16:21 WBC RBC Hgb Hct MCV MCH MCHC RDW Plt Count MPV Sodium Potassium Chloride Carbon Dioxide Anion Gap BUN Creatinine Est GFR (CKD-EPI)AfAm Est GFR (CKD-EPI)NonAf POC Glucometer 196 126 104 Random Glucose Calcium Total Bilirubin AST ALT Alkaline Phosphatase Total Protein Albumin RPR Titer 06/04/19 06/05/19 06/05/19 16:33 06:35 16:23 WBC RBC Hgb Hct MCV MCH MCHC RDW Plt Count MPV Sodium Potassium Chloride Carbon Dioxide Anion Gap BUN Creatinine Est GFR (CKD-EPI)AfAm Est GFR (CKD-EPI)NonAf POC Glucometer 111 112 60 Random Glucose Calcium Total Bilirubin AST ALT Alkaline Phosphatase Total Protein Albumin RPR Titer 06/06/19 06:46 WBC RBC Hgb Hct MCV MCH MCHC RDW Plt Count MPV Sodium Potassium Chloride Carbon Dioxide Anion Gap BUN Creatinine Est GFR (CKD-EPI)AfAm Est GFR (CKD-EPI)NonAf POC Glucometer 135 Random Glucose Calcium Total Bilirubin AST ALT Alkaline Phosphatase Total Protein Albumin RPR Titer today pt is aaox3 ambulating no acute distress no s/s of withdrawals - Treatment Hospital Course: Detox Protocol Followed, Detoxed Safely, Responded well, Discharged Condition Good, Rehab Referral Accepted Patient has Accepted a Rehab Referral to: referred to [facility] - Medication Discharge Medications: Ambulatory Orders Lisinopril [Prinivil -] 40 mg PO DAILY #30 tab 08/09/17 Nifedipine ER [Procardia XL -] 60 mg PO DAILY #30 tab 08/09/17 metFORMIN HCL [Glucophage -] 500 mg PO BID #60 tab 08/09/17 - Diagnosis (1) Alcohol dependence with uncomplicated withdrawal Current Visit: Yes Status: Chronic (2) Depression Current Visit: Yes Status: Acute (3) Nicotine dependence Current Visit: Yes Status: Chronic Qualifiers: Nicotine product type: cigarettes Substance use status: uncomplicated Qualified Code(s): F17.210 - Nicotine dependence, cigarettes, uncomplicated (4) Opioid dependence with withdrawal Current Visit: Yes Status: Chronic (5) CVA (cerebral vascular accident) Current Visit: Yes Status: Chronic Qualifiers: CVA mechanism: unspecified Qualified Code(s): I63.9 - Cerebral infarction, unspecified (6) Cocaine dependence, uncomplicated Current Visit: Yes Status: Chronic (7) DM type 2 (diabetes mellitus, type 2) Current Visit: Yes Status: Chronic Qualifiers: Diabetes mellitus shelter insulin use: without petroleum terminal plant operator use Diabetes mellitus complication status: without complication Qualified Code(s): E11.9 - Type 2 diabetes mellitus without complications (8) Essential hypertension Current Visit: Yes Status: Chronic - AMA Did Patient Leave Against Medical Advice: No
[2019-06-06] MEDS: NICOTINE 21 MG/24 HOURS TOPICAL PATCH TD SCH (10:09)
[2019-06-06] MEDS: LISINOPRIL 20 MG TABLET (FP) PO SCH (10:10)
[2019-06-06] MEDS: PRENATAL VITAMINS W/ FOLIC ACID TABLET (FP) PO SCH (10:10)
[2019-06-06] MEDS: NIFEdipine E.R 60 MG TABLET (UD) PO SCH (10:10)
[2019-06-06 17:01] VITALS: BP 137/81; PULSE 92; TEMP 98.1
== END 2019-06-06 17:14 | disposition other institution (70) | DRG 773 ==
LOC: YASAS 13:41 → Y6N 16:11
PROVIDERS: ADMIT Surgery; ATTEND Surgery
PROC: HZ2ZZZZ Detoxification Services for Substance Abuse Treatment (ICD-10-PCS; principal; 2019-05-31)
DX: F11.23 Opioid dependence with withdrawal (principal); F10.230 Alcohol dependence with withdrawal, uncomplicated; F14.20 Cocaine dependence, uncomplicated; F17.210 Nicotine dependence, cigarettes, uncomplicated; F32.9 Major depressive disorder, single episode, unspecified; I10 Essential (primary) hypertension; E11.65 Type 2 diabetes mellitus with hyperglycemia; Z86.73 Personal history of transient ischemic attack (TIA), and cerebral infarction without residual deficits; Z91.013 Allergy to seafood
CPT/HCPCS: 36415; 80053; 82962; 85027; 86593; 93005; 93010

== ENCOUNTER 2019-06-06 17:26 | Inpatient (IN) | payer OTHER ==
--- NOTE | 2019-06-06 10:50 | HP ---
[facility] Rehab Assess/Revision - Admission History Admitted to Rehab from[facility] - Findings Detox History & Physical reviewed: Yes Concur with findings: Yes Inpatient Rehab Admission - Rehab Decision to Admit Inpatient rehab admission?: Yes - Initial Determination Are CD services needed?: Yes Free of communicable disease: Yes Not in need of hospitalization: Yes - Rehab Admission Criteria Previous failed treatment: Yes Poor recovery environment: Yes Comorbidities: Yes Lacks judgement: Yes Patient is meeting Inpatient Rehab admission criteria:: Yes
[~2019-06-06 17:26] MED LIST: ACETAMINOPHEN 325 MG TABLET (FP) PO PRN; IBUPROFEN 400 MG TABLET (FP) PO PRN; LOPERAMIDE HCL 2 MG CAPSULE PO PRN; MAG HYDROX/AL HYDROX/SIMETH 30 ML UNIT-DOSE CUP PO PRN; MAGNESIUM CITRATE 300 ML BOTTLE PO PRN; MAGNESIUM HYDROX 2400MG/30ML ORAL SUSPENSION 30 ML CUP PO PRN; MENTHOL/PHENOL 1 EACH UD MM PRN; NICOTINE POLACRILEX 4 MG GUM BUC PRN; P-EPHED 60MG/TRIPROLIDI 2.5MG TABLET PO PRN; guaiFENesin 200 MG/10 ML 10 ML UNIT-DOSE CUPS PO PRN; hydrOXYzine PAMOATE 50 MG CAPSULE (FP) PO PRN
[2019-06-06] MEDS: THIAMINE HCL 100 MG TABLET (FP) PO SCH (21:20)
[2019-06-06] MEDS ORDERED: MELATONIN 5 MG TABLETS PO PRN (22:00)
[2019-06-07] MEDS: metFORMIN HCL 500 MG TABLET (FP) PO SCH ×2 (07:03→16:41)
[2019-06-07] MEDS ORDERED: LISINOPRIL 20 MG TABLET (FP) PO SCH (10:00)
[2019-06-07] MEDS ORDERED: NIFEdipine E.R 60 MG TABLET (UD) PO SCH (10:00)
[2019-06-07] MEDS: NICOTINE 21 MG/24 HOURS TOPICAL PATCH TD SCH (10:29)
[2019-06-07] MEDS: PRENATAL VITAMINS W/ FOLIC ACID TABLET (FP) PO SCH (10:29)
--- NOTE | 2019-06-07 11:09 | PN ---
S Progress Note Note: Pt very angry and verbally aggressive to staff because wants his medications changed to be taken all at once in the morning and do not want to be called. Pt also very abrasive in stating he does not want to continue with BGMs for sugar monitoring because he "does not do that on the street". Pt was spoken to and explained to patient the hospital medication schedule and ability to accommodate requests when safe. and explained to pt hospital protocol for blood sugar monitoring for DM diagnosis. Vital Signs - 24 hr 06/06/19 06/07/19 06/07/19 20:00 00:37 03:30 Temperature 98.8 F Pulse Rate 90 Respiratory 18 18 18 Rate Blood Pressure 121/78 06/07/19 06/07/19 06:37 10:00 Temperature 97.7 F Pulse Rate 84 90 Respiratory 18 Rate Blood Pressure 113/74 129/74 Laboratory Tests 06/07/19 07:01 POC Glucometer 136 A/P Noncompliant Behavior Explained to pt the rules, regulations and protocols as it pertains to his proper management while in the hospital for treatment.
[2019-06-07] MEDS ORDERED: IBUPROFEN 400 MG TABLET (FP) PO PRN (15:44)
[2019-06-07] MEDS: THIAMINE HCL 100 MG TABLET (FP) PO SCH (21:19)
[2019-06-07] MEDS: METHYL SALICYLATE/MENTHOL OINT 30 GM TUBE TP SCH (21:20)
[2019-06-07] MEDS ORDERED: ATORVASTATIN CA 20 MG TABLET (FP) PO SCH (22:00)
[2019-06-08] MEDS: metFORMIN HCL 500 MG TABLET (FP) PO SCH (06:42)
[2019-06-08] MEDS ORDERED: LISINOPRIL 20 MG TABLET (FP) PO SCH (07:00)
[2019-06-08] MEDS ORDERED: NIFEdipine E.R 60 MG TABLET (UD) PO SCH (07:00)
[2019-06-08 07:07] VITALS: BP 108/77; PULSE 81; TEMP 97.4
--- NOTE | 2019-06-08 08:51 | PN ---
[facility] Progress Note Note: Pt approached this food writer and requested he wants to leave treatment to follow up with his pain management provider, Dr. Osborn in [place], [place](does not remember address). Denies hx of falls or current truama. Pt states he is on "oxy as needed" for his chronic shoulder pain. Reports hx of chronic pain due to past injuries and bilateral shoulder and knee surgeries. States "I used to play a lot of sports and I had torn rotator cuffs and 4 discs dislocations on my back". Reports his left shoulder sometimes pops out of place and right knee with slight deficit on extension. Pt was admitted here in rehab after completing detox on on 06/05/19. All efforts to encourage patient to stay in treatment proves unsuccessful as pt insists on leaving. Vital Signs - 24 hr 06/07/19 06/08/19 06/08/19 10:00 00:30 03:30 Temperature Pulse Rate 90 Respiratory 18 18 Rate Blood Pressure 129/74 06/08/19 07:06 Temperature 97.4 F L Pulse Rate 81 Respiratory 18 Rate Blood Pressure 108/77 A/P Noncompliant with treatment Pt to met with counselor for CD aftercare referral follow up.
[2019-06-08] MEDS: METHYL SALICYLATE/MENTHOL OINT 30 GM TUBE TP SCH (09:32)
[2019-06-08] MEDS: NICOTINE 21 MG/24 HOURS TOPICAL PATCH TD SCH (09:32)
[2019-06-08] MEDS: PRENATAL VITAMINS W/ FOLIC ACID TABLET (FP) PO SCH (09:32)
== END 2019-06-08 09:35 | disposition left against medical advice (07) | DRG 770 ==
LOC: YASAS 17:26 → Y5N 17:28
PROVIDERS: ADMIT Neuromusculoskeletal Medicine & OMM; ATTEND Neuromusculoskeletal Medicine & OMM
PROC: HZ42ZZZ Group Counseling for Substance Abuse Treatment, Cognitive-Behavioral (ICD-10-PCS; principal; 2019-06-06)
DX: F10.20 Alcohol dependence, uncomplicated (principal); F11.20 Opioid dependence, uncomplicated; F14.20 Cocaine dependence, uncomplicated; F17.210 Nicotine dependence, cigarettes, uncomplicated; F32.9 Major depressive disorder, single episode, unspecified; I10 Essential (primary) hypertension; E11.9 Type 2 diabetes mellitus without complications; Z79.84 Long term (current) use of oral hypoglycemic drugs; Z86.73 Personal history of transient ischemic attack (TIA), and cerebral infarction without residual deficits; Z91.19 Patient's noncompliance with other medical treatment and regimen
CPT/HCPCS: 82962

== ENCOUNTER 2019-07-05 11:39 | Inpatient (IN) | payer OTHER ==
[2019-07-05 14:24] VITALS: BMI 27.4
--- NOTE | 2019-07-05 15:15 | HP ---
CIWA Score - Admission Criteria [facility] Guidelines: Admission for Medically Managed Detox: Requires at least one of the followin. CIWA greater than 12 2. Seizures within the past 24 hours 3. Delirium tremens within the past 24 hours 4. Hallucinations within the past 24 hours 5. Acute intervention needed for co occurring medical disorder 6. Acute intervention needed for co occurring psychiatric disorder 7. Severe withdrawal that cannot be handled at a lower level of care (continued vomiting, continued diarrhea, abnormal vital signs) requiring intravenous medication and/or fluids 8. Admitting History and Physical - Smoking History Smoking history: Current every day smoker Have you smoked in the past 12 months: Yes Aproximately how many cigarettes per day: 10 - Alcohol/Substance Use Hx Alcohol Use: Yes Admission ROS [facility] Chief Complaint: here for rehab from alcohol Allergies/Adverse Reactions: Allergies Allergy/AdvReac Type Severity Reaction Status Date / Time Fish Containing Products Allergy Severe Hives Verified 07/05/19 14:15 No Known Drug Allergies Allergy Verified 07/05/19 14:15 History of Present Illness: 54 yo with alcohol use disorder, left here on 06/06 after completing detox and a 3 days in rehab. Pt states he started drinking right away after leaving rehab. Says he has been living in the street for the last few weeks. His family found him in the streets and took to him BI detox- and is now here for rehab. Pt has HTN and DM. Utox- BZO DUR: oxycodone 120 tabs on 06/15- pt states does not use this regularly Xanax #60 06/19 - Ebola screening Have you traveled outside of the country in the last 21 days: No (N) Have you had contact with anyone from an Ebola affected area: No Do you have a fever: No - Review of Systems Constitutional: No Symptoms Reported EENT: reports: No Symptoms Reported Respiratory: reports: Cough Cardiac: reports: No Symptoms Reported GI: reports: No Symptoms Reported : reports: No Symptoms Reported Musculoskeletal: reports: No Symptoms Reported Integumentary: reports: No Symptoms Reported Neuro: reports: No Symptoms reported Endocrine: reports: No Symptoms Reported Hematology: reports: No Symptoms Reported Psychiatric: reports: No Sypmtoms Reported Other Systems: Reviewed and Negative Patient History - Patient Medical History Hx Anemia: No Hx Asthma: No Hx Chronic Obstructive Pulmonary Disease (COPD): No Hx Cancer: No Hx Cardiac Disorders: Yes Hx Congestive Heart Failure: No Hx Hypertension: Yes Hx Hypercholesterolemia: No Hx Pacemaker: No HX Cerebrovascular Accident: Yes (old cva [id number] cyrus aguilar "semi stroke " no consequences) Hx Seizures: No Hx Dementia: No Hx Diabetes: Yes Hx Gastrointestinal Disorders: No Hx Liver Disease: No Hx Genitourinary Disorders: No Hx Sexually Transmitted Disorders: No Hx Renal Disease (ESRD): No Hx Thyroid Disease: No Hx Human Immunodeficiency Virus (HIV): No (last 2016 negative) Hx Hepatitis C: No (negative) Hx Depression: No Hx Suicide Attempt: No Hx Bipolar Disorder: No Hx Schizophrenia: No - Patient Surgical History Past Surgical History: Yes Hx Neurologic Surgery: No Hx Cataract Extraction: No Hx Cardiac Surgery: No Hx Lung Surgery: No Hx Breast Surgery: No Hx Breast Biopsy: No Hx Abdominal Surgery: No Hx Appendectomy: No Hx Cholecystectomy: No Hx Genitourinary Surgery: No Hx Section: No Hx Orthopedic Surgery: Yes (arthroscopic surgery of b/l shoulders,right knee) Anesthesia Reaction: No - PPD History Date: 03/07/17 Results: 0mm - Smoking Cessation Smoking history: Current every day smoker Have you smoked in the past 12 months: Yes Aproximately how many cigarettes per day: 10 Cigars Per Day: 0 Hx Chewing Tobacco Use: No Initiated information on smoking cessation: Yes 'Breaking Loose' booklet given: 07/05/19 - Substance & Tx. History Substance Use Type: Alcohol, Cocaine Hx Substance Use Treatment: Yes - Substances abused Alcohol Substance route: Oral Frequency: Daily Amount used: 3-4 PINTS VODKA, 20 CANS OF BEER Age of first use: 18 Date of last use: 06/30/19 Crack Substance route: Smoking Frequency: Daily Amount used: $200-300 Age of first use: 18 Date of last use: 06/30/19 Admission Physical Exam [facility] - Vital Signs Vital Signs: Vital Signs - 24 hr 07/05/19 14:14 Temperature 98.5 F Pulse Rate 100 H Respiratory 20 Rate Blood Pressure 148/93 Breathalyzer - Breathalyzer Breathalyzer: 0 Urine Drug Screen - Test Device Lot number: [id number] Expiration date: 03/03/21 - Control Is test valid?: Yes - Results Drug screen NEGATIVE: No Urine drug screen results: BZO-Benzodiazepines Inpatient Rehab Admission - Rehab Decision to Admit Inpatient rehab admission?: Yes - Initial Determination Are CD services needed?: Yes Free of communicable disease: Yes Not in need of hospitalization: Yes - Rehab Admission Criteria Previous failed treatment: Yes Poor recovery environment: Yes Comorbidities: Yes Lacks judgement: Yes Patient is meeting Inpatient Rehab admission criteria:: Yes
[2019-07-05] MEDS ORDERED: NICOTINE POLACRILEX 2 MG GUM BC PRN (15:20)
[2019-07-05] MEDS ORDERED: hydrOXYzine PAMOATE 25 MG CAPSULE (FP) PO PRN (15:20)
[2019-07-05] MEDS ORDERED: LOPERAMIDE HCL 2 MG CAPSULE PO PRN (15:20)
[2019-07-05] MEDS ORDERED: ACETAMINOPHEN 325 MG TABLET (FP) PO PRN (15:20)
[2019-07-05] MEDS ORDERED: P-EPHED 60MG/TRIPROLIDI 2.5MG TABLET PO PRN (15:20)
[2019-07-05] MEDS ORDERED: MAGNESIUM HYDROX 2400MG/30ML ORAL SUSPENSION 30 ML CUP PO PRN (15:20)
[2019-07-05] MEDS ORDERED: MENTHOL/PHENOL 1 EACH UD MM PRN (15:20)
[2019-07-05] MEDS ORDERED: MAGNESIUM CITRATE 300 ML BOTTLE PO PRN (15:20)
[2019-07-05] MEDS: metFORMIN HCL 500 MG TABLET (FP) PO SCH (17:32)
[2019-07-05] MEDS: IBUPROFEN 400 MG TABLET (FP) PO PRN (21:29)
[2019-07-05] MEDS: ATORVASTATIN CA 20 MG TABLET (FP) PO SCH (21:29)
[2019-07-05] MEDS: THIAMINE HCL 100 MG TABLET (FP) PO SCH (21:29)
[2019-07-05] MEDS: guaiFENesin 200 MG/10 ML 10 ML UNIT-DOSE CUPS PO PRN (21:30)
[2019-07-05] MEDS ORDERED: MELATONIN 5 MG TABLETS PO PRN (22:00)
[2019-07-05 23:08] LABS: URINE APPEARANCE CLOUDY; URINE BILIRUBIN NEGATIVE (NEGATIVE); URINE COLOR YELLOW; URINE GLUCOSE (UA) NEGATIVE (NEGATIVE); URINE KETONE NEGATIVE (NEGATIVE); URINE LEUK ESTERASE NEGATIVE (NEGATIVE); URINE NITRITE NEGATIVE (NEGATIVE); URINE PROTEIN NEGATIVE (NEGATIVE); URINE UROBILINOGEN 0.2 mg/dL (0.2-1.0)
[2019-07-06] MEDS: MAG HYDROX/AL HYDROX/SIMETH 30 ML UNIT-DOSE CUP PO PRN (03:40)
[2019-07-06] MEDS: metFORMIN HCL 500 MG TABLET (FP) PO SCH ×2 (07:09→17:13)
[2019-07-06] MEDS: LISINOPRIL 20 MG TABLET (FP) PO SCH (09:52)
[2019-07-06] MEDS: PRENATAL VITAMINS W/ FOLIC ACID TABLET (FP) PO SCH (09:52)
[2019-07-06] MEDS: NIFEdipine E.R 60 MG TABLET (UD) PO SCH (09:53)
[2019-07-06] MEDS ORDERED: METHYL SALICYLATE/MENTHOL OINT 30 GM TUBE TP PRN (10:36)
--- NOTE | 2019-07-06 10:36 | PN ---
[facility] Progress Note Note: Pt c/o pain of sternal area- of many years. PE- bony protrusion/overgrowth of xyphoid process- not soft, no evidence of infection. Vital Signs - 24 hr 07/05/19 07/06/19 07/06/19 14:14 00:30 06:17 Temperature 98.5 F 97.7 F Pulse Rate 100 H 85 Respiratory 20 18 20 Rate Blood Pressure 148/93 148/97 a/p: f/u with PCP for [facility] management-surgical removal/shaving? Ba-wolf ointment- topical - for local relief
[2019-07-06 10:50] LABS: HEMOGLOBIN 15.5 GM/dL (11.7-16.9); MCH 31.6 pg (25.7-33.7); MCHC 33.6 g/dl (32.0-35.9); MEAN CELL VOLUME 94.1 fl (80-96); MEAN PLT VOLUME 10.3 fl (7.5-11.1); PLATELET COUNT 204 K/MM3 (134-434); RBC 4.89 M/mm3 (4.00-5.60); WHITE BLOOD COUNT 5.7 K/mm3 (4.0-10.0)
[2019-07-06 10:58] LABS: BILIRUBIN,TOTAL 0.4 mg/dL (0.2-1); BLOOD UREA NITROGEN 16.8 mg/dL (7-18); CALCIUM 8.6 mg/dL (8.5-10.1); CREATININE 1.2 mg/dL (0.55-1.3); POTASSIUM 4.5 mmol/L (3.5-5.1); TOT PROT 5.7 g/dl (6.4-8.2)
[2019-07-06] MEDS: ATORVASTATIN CA 20 MG TABLET (FP) PO SCH (21:11)
[2019-07-06] MEDS: THIAMINE HCL 100 MG TABLET (FP) PO SCH (21:12)
[2019-07-06] MEDS: IBUPROFEN 400 MG TABLET (FP) PO PRN (21:13)
[2019-07-07] MEDS: metFORMIN HCL 500 MG TABLET (FP) PO SCH ×2 (06:27→16:22)
[2019-07-07] MEDS: PRENATAL VITAMINS W/ FOLIC ACID TABLET (FP) PO SCH (10:09)
[2019-07-07] MEDS: NIFEdipine E.R 60 MG TABLET (UD) PO SCH (10:09)
[2019-07-07] MEDS: LISINOPRIL 20 MG TABLET (FP) PO SCH (10:09)
[2019-07-07] MEDS: ATORVASTATIN CA 20 MG TABLET (FP) PO SCH (21:42)
[2019-07-07] MEDS: THIAMINE HCL 100 MG TABLET (FP) PO SCH (21:42)
[2019-07-08] MEDS: metFORMIN HCL 500 MG TABLET (FP) PO SCH ×2 (06:30→16:26)
[2019-07-08] MEDS: MAG HYDROX/AL HYDROX/SIMETH 30 ML UNIT-DOSE CUP PO PRN (06:31)
[2019-07-08] MEDS: LISINOPRIL 20 MG TABLET (FP) PO SCH (09:22)
[2019-07-08] MEDS: NIFEdipine E.R 60 MG TABLET (UD) PO SCH (09:22)
[2019-07-08] MEDS: PRENATAL VITAMINS W/ FOLIC ACID TABLET (FP) PO SCH (09:22)
[2019-07-08] MEDS: THIAMINE HCL 100 MG TABLET (FP) PO SCH (21:30)
[2019-07-08] MEDS: ATORVASTATIN CA 20 MG TABLET (FP) PO SCH (21:30)
[2019-07-09] MEDS: metFORMIN HCL 500 MG TABLET (FP) PO SCH ×2 (06:38→16:23)
[2019-07-09] MEDS: LISINOPRIL 20 MG TABLET (FP) PO SCH (10:07)
[2019-07-09] MEDS: PRENATAL VITAMINS W/ FOLIC ACID TABLET (FP) PO SCH (10:08)
[2019-07-09] MEDS: NIFEdipine E.R 60 MG TABLET (UD) PO SCH (10:08)
[2019-07-09] MEDS: THIAMINE HCL 100 MG TABLET (FP) PO SCH (21:25)
[2019-07-09] MEDS: ATORVASTATIN CA 20 MG TABLET (FP) PO SCH (21:25)
[2019-07-09] MEDS: guaiFENesin 200 MG/10 ML 10 ML UNIT-DOSE CUPS PO PRN (22:42)
[2019-07-10] MEDS: metFORMIN HCL 500 MG TABLET (FP) PO SCH ×2 (06:22→17:02)
[2019-07-10] MEDS ORDERED: PT OWN MED DRAWER 7, Y5N ONE (08:31)
[2019-07-10] MEDS: PRENATAL VITAMINS W/ FOLIC ACID TABLET (FP) PO SCH (09:52)
[2019-07-10] MEDS: NIFEdipine E.R 60 MG TABLET (UD) PO SCH (09:52)
[2019-07-10] MEDS: LISINOPRIL 20 MG TABLET (FP) PO SCH (09:52)
[2019-07-10] MEDS: ATORVASTATIN CA 20 MG TABLET (FP) PO SCH (10:01)
[2019-07-10] MEDS: PANTOPRAZOLE 20 MG TABLET (FP) PO SCH ×2 (10:35→21:55)
[2019-07-10] MEDS: THIAMINE HCL 100 MG TABLET (FP) PO SCH (21:55)
[2019-07-11] MEDS: metFORMIN HCL 500 MG TABLET (FP) PO SCH ×2 (06:20→16:30)
[2019-07-11] MEDS: LISINOPRIL 20 MG TABLET (FP) PO SCH (09:54)
[2019-07-11] MEDS: ATORVASTATIN CA 20 MG TABLET (FP) PO SCH (09:55)
[2019-07-11] MEDS: PRENATAL VITAMINS W/ FOLIC ACID TABLET (FP) PO SCH (09:55)
[2019-07-11] MEDS: PANTOPRAZOLE 20 MG TABLET (FP) PO SCH ×2 (09:55→21:37)
[2019-07-11] MEDS: NIFEdipine E.R 60 MG TABLET (UD) PO SCH (09:55)
[2019-07-11] MEDS: guaiFENesin 200 MG/10 ML 10 ML UNIT-DOSE CUPS PO PRN (16:30)
[2019-07-11] MEDS: THIAMINE HCL 100 MG TABLET (FP) PO SCH (21:37)
[2019-07-12] MEDS: metFORMIN HCL 500 MG TABLET (FP) PO SCH ×2 (06:26→16:34)
[2019-07-12] MEDS: LISINOPRIL 20 MG TABLET (FP) PO SCH (09:53)
[2019-07-12] MEDS: PRENATAL VITAMINS W/ FOLIC ACID TABLET (FP) PO SCH (09:53)
[2019-07-12] MEDS: NIFEdipine E.R 60 MG TABLET (UD) PO SCH (09:53)
[2019-07-12] MEDS: PANTOPRAZOLE 20 MG TABLET (FP) PO SCH ×2 (09:54→21:28)
[2019-07-12] MEDS: ATORVASTATIN CA 20 MG TABLET (FP) PO SCH (09:54)
[2019-07-12] MEDS: THIAMINE HCL 100 MG TABLET (FP) PO SCH (21:28)
[2019-07-13] MEDS: metFORMIN HCL 500 MG TABLET (FP) PO SCH ×2 (06:28→16:29)
[2019-07-13] MEDS: NIFEdipine E.R 60 MG TABLET (UD) PO SCH (09:59)
[2019-07-13] MEDS: PRENATAL VITAMINS W/ FOLIC ACID TABLET (FP) PO SCH (09:59)
[2019-07-13] MEDS: ATORVASTATIN CA 20 MG TABLET (FP) PO SCH (10:00)
[2019-07-13] MEDS: PANTOPRAZOLE 20 MG TABLET (FP) PO SCH ×2 (10:00→21:34)
[2019-07-13] MEDS: LISINOPRIL 20 MG TABLET (FP) PO SCH (10:00)
[2019-07-13] MEDS: guaiFENesin 200 MG/10 ML 10 ML UNIT-DOSE CUPS PO PRN (15:47)
[2019-07-13] MEDS: THIAMINE HCL 100 MG TABLET (FP) PO SCH (21:34)
[2019-07-14] MEDS: metFORMIN HCL 500 MG TABLET (FP) PO SCH ×2 (06:23→16:32)
[2019-07-14] MEDS: PRENATAL VITAMINS W/ FOLIC ACID TABLET (FP) PO SCH (09:13)
[2019-07-14] MEDS: LISINOPRIL 20 MG TABLET (FP) PO SCH (09:13)
[2019-07-14] MEDS: PANTOPRAZOLE 20 MG TABLET (FP) PO SCH ×2 (09:13→21:38)
[2019-07-14] MEDS: NIFEdipine E.R 60 MG TABLET (UD) PO SCH (09:13)
[2019-07-14] MEDS: ATORVASTATIN CA 20 MG TABLET (FP) PO SCH (09:13)
[2019-07-14] MEDS: THIAMINE HCL 100 MG TABLET (FP) PO SCH (21:38)
[2019-07-15] MEDS: metFORMIN HCL 500 MG TABLET (FP) PO SCH ×2 (06:34→16:54)
[2019-07-15] MEDS: NIFEdipine E.R 60 MG TABLET (UD) PO SCH (10:26)
[2019-07-15] MEDS: ATORVASTATIN CA 20 MG TABLET (FP) PO SCH (10:26)
[2019-07-15] MEDS: PANTOPRAZOLE 20 MG TABLET (FP) PO SCH ×2 (10:26→21:50)
[2019-07-15] MEDS: LISINOPRIL 20 MG TABLET (FP) PO SCH (10:26)
[2019-07-15] MEDS: PRENATAL VITAMINS W/ FOLIC ACID TABLET (FP) PO SCH (10:26)
[2019-07-15] MEDS: THIAMINE HCL 100 MG TABLET (FP) PO SCH (21:50)
[2019-07-16] MEDS: metFORMIN HCL 500 MG TABLET (FP) PO SCH ×2 (06:14→17:14)
[2019-07-16] MEDS: PRENATAL VITAMINS W/ FOLIC ACID TABLET (FP) PO SCH (10:09)
[2019-07-16] MEDS: ATORVASTATIN CA 20 MG TABLET (FP) PO SCH (10:09)
[2019-07-16] MEDS: PANTOPRAZOLE 20 MG TABLET (FP) PO SCH ×2 (10:09→21:40)
[2019-07-16] MEDS: LISINOPRIL 20 MG TABLET (FP) PO SCH (10:09)
[2019-07-16] MEDS: NIFEdipine E.R 60 MG TABLET (UD) PO SCH (10:09)
[2019-07-16] MEDS: THIAMINE HCL 100 MG TABLET (FP) PO SCH (21:40)
[2019-07-17] MEDS: metFORMIN HCL 500 MG TABLET (FP) PO SCH ×2 (06:23→16:27)
[2019-07-17] MEDS: LISINOPRIL 20 MG TABLET (FP) PO SCH (09:24)
[2019-07-17] MEDS: NIFEdipine E.R 60 MG TABLET (UD) PO SCH (09:24)
[2019-07-17] MEDS: PANTOPRAZOLE 20 MG TABLET (FP) PO SCH ×2 (09:24→21:48)
[2019-07-17] MEDS: ATORVASTATIN CA 20 MG TABLET (FP) PO SCH (09:24)
[2019-07-17] MEDS: PRENATAL VITAMINS W/ FOLIC ACID TABLET (FP) PO SCH (09:24)
[2019-07-17] MEDS: THIAMINE HCL 100 MG TABLET (FP) PO SCH (21:49)
[2019-07-18] MEDS: metFORMIN HCL 500 MG TABLET (FP) PO SCH ×2 (06:29→16:48)
[2019-07-18] MEDS: PRENATAL VITAMINS W/ FOLIC ACID TABLET (FP) PO SCH (09:21)
[2019-07-18] MEDS: PANTOPRAZOLE 20 MG TABLET (FP) PO SCH ×2 (09:21→21:54)
[2019-07-18] MEDS: NIFEdipine E.R 60 MG TABLET (UD) PO SCH (09:21)
[2019-07-18] MEDS: ATORVASTATIN CA 20 MG TABLET (FP) PO SCH (09:21)
[2019-07-18] MEDS: LISINOPRIL 20 MG TABLET (FP) PO SCH (09:21)
--- NOTE | 2019-07-18 10:57 | DS ---
[facility] Rehab Discharge Summary - [facility] Rehab Discharge Summary Admission Date: 07/05/19 Discharge Date: 07/18/19 - History Present History: Alcohol dependence, Cocaine dependence, Opioid dependence Pertinent Past History: 54 yo with alcohol use disorder, left here on 06/06 after completing detox and a 3 days in rehab. Returned to complete rehab. Pt has HTN and DM. - Discharge Physical Exam Vital Signs: Vital Signs Temperature 98 F 07/18/19 06:51 Pulse Rate 92 H 07/18/19 09:30 Respiratory Rate 18 07/18/19 09:30 Blood Pressure 120/70 07/18/19 09:30 O2 Sat by Pulse Oximetry (%) Pertinent Admission Physical Exam Findings: Physical: General: No apparent distress HEENTM: PERRLA, normocephalic, adequate hearing, Neck: supple Lungs: clear Heart: s1 s2 audible, regular rate & rhythm ABD: +BS, soft, non-tender, non-distended Neuro: CN 2-12 intact MSK: full weight bearing, full ROM, steady gait SKIN: color consistent throughout trunk and extremities, good turgor - Treatment Discharge Condition: Outpatient referral accepted (Patient is on waiting list for [facility] or [facility]; will attend AA meetings until he can be admitted to either. Medically stable for discharge.) Hospital Course: Patient attended groups, had 1:1 with counselor, was adherent to treatment plan and medication regimen. - Medication Discharge Medications: Ambulatory Orders Lisinopril [Prinivil -] 40 mg PO DAILY #30 tab 08/09/17 Nifedipine ER [Procardia XL -] 60 mg PO DAILY #30 tab 08/09/17 metFORMIN HCL [Glucophage -] 500 mg PO BID #60 tab 08/09/17 Atorvastatin Ca [Lipitor] 20 mg PO HS 06/07/19 Ibuprofen [Motrin -] 800 mg PO BID PRN 06/07/19 - Medication-Assisted Treatment (MAT) Medication-Assisted Treatment (MAT): No - Discharge Instructions Diet, activity, other medical instructions: Diet: as tolerated Activity: as tolerated Other medical instructions: Please see PCP-[facility] and obtain prescriptions for medications. Please follow up with aftercare plan as instructed by your counselor. - AMA Did Patient Leave Against Medical Advice: No Additional Comments: patient refused prescriptions, stated he would see his PCP at [facility] to obtain his prescriptions.
[2019-07-18] MEDS: THIAMINE HCL 100 MG TABLET (FP) PO SCH (21:54)
[2019-07-19] MEDS: metFORMIN HCL 500 MG TABLET (FP) PO SCH (06:35)
[2019-07-19 06:59] VITALS: BP 134/87; PULSE 80; TEMP 97.8
== END 2019-07-19 08:15 | disposition home or self-care (01) | DRG 772 ==
LOC: YASAS 11:39 → Y3W 15:51
PROVIDERS: ADMIT Neuromusculoskeletal Medicine & OMM; ATTEND Neuromusculoskeletal Medicine & OMM
PROC: HZ42ZZZ Group Counseling for Substance Abuse Treatment, Cognitive-Behavioral (ICD-10-PCS; principal; 2019-07-05)
DX: F10.20 Alcohol dependence, uncomplicated (principal); F14.20 Cocaine dependence, uncomplicated; F17.210 Nicotine dependence, cigarettes, uncomplicated; I10 Essential (primary) hypertension; E11.9 Type 2 diabetes mellitus without complications; R07.89 Other chest pain; Z91.013 Allergy to seafood; Z86.73 Personal history of transient ischemic attack (TIA), and cerebral infarction without residual deficits; Z79.84 Long term (current) use of oral hypoglycemic drugs
CPT/HCPCS: 36415; 80053; 81003; 82962; 85027; 86593

== ENCOUNTER 2020-09-19 13:54 | Inpatient (IN) | payer OTHER ==
[2020-09-19] MEDS ORDERED: NICOTINE POLACRILEX 2 MG GUM BUC PRN (15:09)
[2020-09-19] MEDS ORDERED: chlordiazePOXIDE HCL 25 MG CAPSULE PO PRN (15:09)
[2020-09-19] MEDS ORDERED: MAG HYDROX/AL HYDROX/SIMETH 30 ML UNIT-DOSE CUP PO PRN (15:09)
[2020-09-19] MEDS ORDERED: BISMUTH SUBSALICYLATE 524 MG/30 ML UD PO PRN (15:09)
[2020-09-19] MEDS ORDERED: MAGNESIUM CITRATE 300 ML BOTTLE PO PRN (15:09)
[2020-09-19] MEDS ORDERED: MAGNESIUM HYDROX 2400MG/30ML ORAL SUSPENSION 30 ML CUP PO PRN (15:09)
[2020-09-19] MEDS ORDERED: ONDANSETRON *ODT* 4 MG TABLET SL PRN (15:09)
[2020-09-19] MEDS ORDERED: ACETAMINOPHEN 325 MG TABLET (FP) PO PRN ×2 (15:09)
[2020-09-19] MEDS ORDERED: MENTHOL/PHENOL 1 EACH UD MM PRN (15:09)
[2020-09-19 15:22] VITALS: BMI 28.8
[2020-09-19] MEDS: NICOTINE 21 MG/24 HOURS TOPICAL PATCH TD SCH (16:03)
[2020-09-19 17:00] LABS: HEMATOCRIT 48.7 % (35.4-49); HEMOGLOBIN 15.9 GM/dL (11.7-16.9); MCH 30.8 pg (25.7-33.7); MCHC 32.7 g/dl (32.0-35.9); MEAN CELL VOLUME 94.4 fl (80-96); RBC 5.16 M/mm3 (4.00-5.60); RDW 14.1 % (11.9-15.9)
[2020-09-19 17:04] LABS: POTASSIUM 3.9 mmol/L (3.5-5.1)
[2020-09-19 17:07] LABS: CALCIUM 9.5 mg/dL (8.5-10.1)
[2020-09-19 17:08] LABS: ALBUMIN 3.6 g/dl (3.4-5.0); BLOOD UREA NITROGEN 16.8 mg/dL (7-18)
[2020-09-19 17:11] LABS: CREATININE 1.4 mg/dL (0.55-1.3)
[2020-09-19 17:12] LABS: BILIRUBIN,TOTAL 0.8 mg/dL (0.2-1)
[2020-09-19] MEDS: hydrOXYzine PAMOATE 25 MG CAPSULE (FP) PO SCH ×2 (17:25→22:14)
[2020-09-19] MEDS: chlordiazePOXIDE HCL 25 MG CAPSULE PO SCH ×2 (17:26→22:14)
[2020-09-19 18:24] LABS: MEAN PLT VOLUME 10.7 fl (7.5-11.1); PLATELET COUNT 217 K/MM3 (134-434)
[2020-09-19] MEDS: THIAMINE HCL 100 MG TABLET (FP) PO SCH (22:12)
[2020-09-19] MEDS: MELATONIN 5 MG TABLETS PO SCH (22:40)
[2020-09-20] MEDS: hydrOXYzine PAMOATE 25 MG CAPSULE (FP) PO SCH ×5 (05:50→22:17)
[2020-09-20] MEDS: chlordiazePOXIDE HCL 25 MG CAPSULE PO SCH ×4 (05:50→22:17)
[2020-09-20] MEDS: PRENATAL VITAMINS W/ FOLIC ACID TABLET (FP) PO SCH (10:12)
[2020-09-20] MEDS: NICOTINE 21 MG/24 HOURS TOPICAL PATCH TD SCH (10:14)
[2020-09-20] MEDS: METHOCARBAMOL 500 MG TABLET PO PRN (15:07)
[2020-09-20] MEDS: metFORMIN HCL 500 MG TABLET (FP) PO SCH (17:00)
[2020-09-20] MEDS: ATORVASTATIN CA 20 MG TABLET (FP) PO SCH (22:17)
[2020-09-20] MEDS: MELATONIN 5 MG TABLETS PO SCH (22:17)
[2020-09-20] MEDS: THIAMINE HCL 100 MG TABLET (FP) PO SCH (22:17)
[2020-09-21] MEDS: hydrOXYzine PAMOATE 25 MG CAPSULE (FP) PO SCH ×5 (05:51→22:02)
[2020-09-21] MEDS: chlordiazePOXIDE HCL 25 MG CAPSULE PO SCH ×4 (05:51→22:02)
[2020-09-21] MEDS: metFORMIN HCL 500 MG TABLET (FP) PO SCH ×2 (06:11→17:06)
[2020-09-21] MEDS: NIFEdipine E.R 60 MG TABLET PO SCH (10:31)
[2020-09-21] MEDS: NICOTINE 21 MG/24 HOURS TOPICAL PATCH TD SCH (10:32)
[2020-09-21] MEDS: PRENATAL VITAMINS W/ FOLIC ACID TABLET (FP) PO SCH (10:32)
[2020-09-21] MEDS: LISINOPRIL 20 MG TABLET PO SCH (10:32)
[2020-09-21] MEDS: MELATONIN 5 MG TABLETS PO SCH (22:02)
[2020-09-21] MEDS: ATORVASTATIN CA 20 MG TABLET (FP) PO SCH (22:02)
[2020-09-21] MEDS: THIAMINE HCL 100 MG TABLET (FP) PO SCH (22:02)
[2020-09-22] MEDS ORDERED: chlordiazePOXIDE HCL 10 MG CAPSULE PO PRN
[2020-09-22] MEDS: hydrOXYzine PAMOATE 25 MG CAPSULE (FP) PO SCH ×5 (05:43→22:04)
[2020-09-22] MEDS: chlordiazePOXIDE HCL 10 MG CAPSULE PO SCH ×4 (05:43→22:04)
[2020-09-22] MEDS: metFORMIN HCL 500 MG TABLET (FP) PO SCH ×2 (06:24→17:05)
[2020-09-22] MEDS: IBUPROFEN 400 MG TABLET (FP) PO PRN (10:06)
[2020-09-22] MEDS: METHOCARBAMOL 500 MG TABLET PO PRN (10:06)
[2020-09-22] MEDS: NIFEdipine E.R 60 MG TABLET PO SCH (10:07)
[2020-09-22] MEDS: NICOTINE 21 MG/24 HOURS TOPICAL PATCH TD SCH (10:08)
[2020-09-22] MEDS: LISINOPRIL 20 MG TABLET PO SCH (10:08)
[2020-09-22] MEDS: PRENATAL VITAMINS W/ FOLIC ACID TABLET (FP) PO SCH (10:08)
[2020-09-22] MEDS: MELATONIN 5 MG TABLETS PO SCH (22:04)
[2020-09-22] MEDS: ATORVASTATIN CA 20 MG TABLET (FP) PO SCH (22:04)
[2020-09-22] MEDS: THIAMINE HCL 100 MG TABLET (FP) PO SCH (22:04)
[2020-09-23] MEDS: chlordiazePOXIDE HCL 10 MG CAPSULE PO SCH ×2 (05:50→18:03)
[2020-09-23] MEDS: hydrOXYzine PAMOATE 25 MG CAPSULE (FP) PO SCH ×5 (05:50→22:20)
[2020-09-23] MEDS: metFORMIN HCL 500 MG TABLET (FP) PO SCH ×2 (07:24→16:50)
[2020-09-23] MEDS ORDERED: PENICILLIN G BENZATHINE 2,400,000 UNIT/4 ML PFS IM ONE ×3 (10:15→15:27)
[2020-09-23] MEDS: LISINOPRIL 20 MG TABLET PO SCH (10:54)
[2020-09-23] MEDS: NICOTINE 21 MG/24 HOURS TOPICAL PATCH TD SCH (10:54)
[2020-09-23] MEDS: PRENATAL VITAMINS W/ FOLIC ACID TABLET (FP) PO SCH (10:54)
[2020-09-23] MEDS: NIFEdipine E.R 60 MG TABLET PO SCH (10:54)
[2020-09-23] MEDS: PANTOPRAZOLE 40 MG TABLET PO SCH (10:56)
[2020-09-23] MEDS: METHOCARBAMOL 500 MG TABLET PO PRN (10:56)
[2020-09-23 11:32] LABS: POTASSIUM 3.9 mmol/L (3.5-5.1)
[2020-09-23 11:37] LABS: CALCIUM 9.1 mg/dL (8.5-10.1)
[2020-09-23 11:38] LABS: BLOOD UREA NITROGEN 12.6 mg/dL (7-18)
[2020-09-23 11:41] LABS: CREATININE 1.1 mg/dL (0.55-1.3)
[2020-09-23] MEDS: ATORVASTATIN CA 20 MG TABLET (FP) PO SCH (22:20)
[2020-09-23] MEDS: THIAMINE HCL 100 MG TABLET (FP) PO SCH (22:20)
[2020-09-23] MEDS: MELATONIN 5 MG TABLETS PO SCH (22:20)
[2020-09-24] MEDS ORDERED: chlordiazePOXIDE HCL 10 MG CAPSULE PO ONE (05:00)
[2020-09-24] MEDS: hydrOXYzine PAMOATE 25 MG CAPSULE (FP) PO SCH ×2 (05:26→10:10)
[2020-09-24] MEDS: metFORMIN HCL 500 MG TABLET (FP) PO SCH (06:06)
[2020-09-24 08:41] VITALS: BP 116/71; PULSE 87; TEMP 98
[2020-09-24] MEDS: IBUPROFEN 400 MG TABLET (FP) PO PRN (10:09)
[2020-09-24] MEDS: PANTOPRAZOLE 40 MG TABLET PO SCH (10:10)
[2020-09-24] MEDS: PRENATAL VITAMINS W/ FOLIC ACID TABLET (FP) PO SCH (10:11)
[2020-09-24] MEDS: LISINOPRIL 20 MG TABLET PO SCH (10:11)
[2020-09-24] MEDS: NIFEdipine E.R 60 MG TABLET PO SCH (10:11)
[2020-09-24] MEDS: NICOTINE 21 MG/24 HOURS TOPICAL PATCH TD SCH (10:11)
== END 2020-09-24 12:05 | disposition other institution (70) | DRG 773 ==
LOC: YASAS 13:54 → Y6N 15:35
PROVIDERS: ADMIT Allergy & Immunology; ATTEND Allergy & Immunology
PROC: HZ2ZZZZ Detoxification Services for Substance Abuse Treatment (ICD-10-PCS; principal; 2020-09-19)
DX: F10.230 Alcohol dependence with withdrawal, uncomplicated (principal); F14.20 Cocaine dependence, uncomplicated; F11.10 Opioid abuse, uncomplicated; F17.210 Nicotine dependence, cigarettes, uncomplicated; I10 Essential (primary) hypertension; E11.65 Type 2 diabetes mellitus with hyperglycemia; R76.8 Other specified abnormal immunological findings in serum; M54.5 Low back pain; G89.29 Other chronic pain; E78.00 Pure hypercholesterolemia, unspecified; N17.9 Acute kidney failure, unspecified; Z86.73 Personal history of transient ischemic attack (TIA), and cerebral infarction without residual deficits; Z79.84 Long term (current) use of oral hypoglycemic drugs; Z91.013 Allergy to seafood
CPT/HCPCS: 36415; 80048; 80053; 82962; 85027; 86593; 86780; C9803; Q0162; U0003

== ENCOUNTER 2020-09-24 12:15 | Inpatient (IN) | payer OTHER ==
[2020-09-24] MEDS ORDERED: MAGNESIUM HYDROX 2400MG/30ML ORAL SUSPENSION 30 ML CUP PO PRN (15:21)
[2020-09-24] MEDS ORDERED: MENTHOL/PHENOL 1 EACH UD MM PRN (15:21)
[2020-09-24] MEDS ORDERED: IBUPROFEN 400 MG TABLET (FP) PO PRN (15:21)
[2020-09-24] MEDS ORDERED: guaiFENesin 200 MG/10 ML 10 ML UNIT-DOSE CUPS PO PRN (15:21)
[2020-09-24] MEDS ORDERED: MAGNESIUM CITRATE 300 ML BOTTLE PO PRN (15:21)
[2020-09-24] MEDS ORDERED: P-EPHED 60MG/TRIPROLIDI 2.5MG TABLET PO PRN (15:21)
[2020-09-24] MEDS ORDERED: NICOTINE POLACRILEX 2 MG GUM BUC PRN (15:21)
[2020-09-24] MEDS ORDERED: LOPERAMIDE HCL 2 MG CAPSULE PO PRN (15:21)
[2020-09-24] MEDS: INSULIN SLIDING SCALE (NOVOLOG) 1 VIAL SQ SCH (17:01)
[2020-09-24] MEDS: metFORMIN HCL 500 MG TABLET (FP) PO SCH (17:01)
[2020-09-24] MEDS: hydrOXYzine PAMOATE 25 MG CAPSULE (FP) PO PRN ×2 (17:54→21:08)
[2020-09-24] MEDS: METHOCARBAMOL 500 MG TABLET PO SCH ×2 (17:55→21:08)
[2020-09-24] MEDS: MELATONIN 5 MG TABLETS PO SCH (21:08)
[2020-09-24] MEDS: THIAMINE HCL 100 MG TABLET (FP) PO SCH (21:08)
[2020-09-24] MEDS: ATORVASTATIN CA 20 MG TABLET (FP) PO SCH (21:08)
[2020-09-25] MEDS: metFORMIN HCL 500 MG TABLET (FP) PO SCH ×2 (06:33→16:55)
[2020-09-25] MEDS: INSULIN SLIDING SCALE (NOVOLOG) 1 VIAL SQ SCH ×2 (06:35→16:56)
[2020-09-25] MEDS: PRENATAL VITAMINS W/ FOLIC ACID TABLET (FP) PO SCH (09:50)
[2020-09-25] MEDS: NICOTINE 21 MG/24 HOURS TOPICAL PATCH TD SCH (09:50)
[2020-09-25] MEDS: NIFEdipine E.R 60 MG TABLET PO SCH (09:50)
[2020-09-25] MEDS: PANTOPRAZOLE 40 MG TABLET PO SCH (09:51)
[2020-09-25] MEDS: METHOCARBAMOL 500 MG TABLET PO SCH ×4 (09:51→21:46)
[2020-09-25] MEDS: hydrOXYzine PAMOATE 25 MG CAPSULE (FP) PO PRN (09:52)
[2020-09-25] MEDS ORDERED: LISINOPRIL 20 MG TABLET PO SCH (10:00)
[2020-09-25] MEDS ORDERED: PATIENT'S OWN MEDICATION (NON-FORMULARY) (Lisinopril [Prinivil -] 40 MG Tablet) PO SCH (10:00)
[2020-09-25] MEDS: MELATONIN 5 MG TABLETS PO SCH (21:46)
[2020-09-25] MEDS: THIAMINE HCL 100 MG TABLET (FP) PO SCH (21:46)
[2020-09-25] MEDS: ATORVASTATIN CA 20 MG TABLET (FP) PO SCH (21:46)
[2020-09-26] MEDS: metFORMIN HCL 500 MG TABLET (FP) PO SCH ×2 (06:21→16:56)
[2020-09-26] MEDS: INSULIN SLIDING SCALE (NOVOLOG) 1 VIAL SQ SCH ×2 (06:31→16:56)
[2020-09-26] MEDS ORDERED: LISINOPRIL 20 MG TABLET PO SCH (10:00)
[2020-09-26] MEDS: PRENATAL VITAMINS W/ FOLIC ACID TABLET (FP) PO SCH (10:05)
[2020-09-26] MEDS: NICOTINE 21 MG/24 HOURS TOPICAL PATCH TD SCH (10:05)
[2020-09-26] MEDS: NIFEdipine E.R 60 MG TABLET PO SCH (10:06)
[2020-09-26] MEDS: PANTOPRAZOLE 40 MG TABLET PO SCH (10:07)
[2020-09-26] MEDS: METHOCARBAMOL 500 MG TABLET PO SCH ×4 (10:07→21:53)
[2020-09-26] MEDS: hydrOXYzine PAMOATE 25 MG CAPSULE (FP) PO PRN ×2 (10:08→21:54)
[2020-09-26] MEDS: ATORVASTATIN CA 20 MG TABLET (FP) PO SCH (21:53)
[2020-09-26] MEDS: THIAMINE HCL 100 MG TABLET (FP) PO SCH (21:53)
[2020-09-26] MEDS: MELATONIN 5 MG TABLETS PO SCH (21:53)
[2020-09-26] MEDS: MAG HYDROX/AL HYDROX/SIMETH 30 ML UNIT-DOSE CUP PO PRN (21:55)
[2020-09-27] MEDS: LISINOPRIL 20 MG TABLET PO SCH (06:37)
[2020-09-27] MEDS: NIFEdipine E.R 60 MG TABLET PO SCH (06:38)
[2020-09-27] MEDS: PRENATAL VITAMINS W/ FOLIC ACID TABLET (FP) PO SCH (06:38)
[2020-09-27] MEDS: PANTOPRAZOLE 40 MG TABLET PO SCH (06:38)
[2020-09-27] MEDS: metFORMIN HCL 500 MG TABLET (FP) PO SCH ×2 (06:38→17:11)
[2020-09-27] MEDS: INSULIN SLIDING SCALE (NOVOLOG) 1 VIAL SQ SCH ×2 (06:40→17:38)
[2020-09-27] MEDS: NICOTINE 21 MG/24 HOURS TOPICAL PATCH TD SCH (06:41)
[2020-09-27] MEDS: METHOCARBAMOL 500 MG TABLET PO SCH ×4 (10:39→21:13)
[2020-09-27] MEDS: hydrOXYzine PAMOATE 25 MG CAPSULE (FP) PO PRN (21:13)
[2020-09-27] MEDS: ATORVASTATIN CA 20 MG TABLET (FP) PO SCH (21:13)
[2020-09-27] MEDS: THIAMINE HCL 100 MG TABLET (FP) PO SCH (21:13)
[2020-09-27] MEDS: MELATONIN 5 MG TABLETS PO SCH (21:13)
[2020-09-28] MEDS: LISINOPRIL 20 MG TABLET PO SCH (06:49)
[2020-09-28] MEDS: PRENATAL VITAMINS W/ FOLIC ACID TABLET (FP) PO SCH (06:49)
[2020-09-28] MEDS: NIFEdipine E.R 60 MG TABLET PO SCH (06:49)
[2020-09-28] MEDS: NICOTINE 21 MG/24 HOURS TOPICAL PATCH TD SCH (06:49)
[2020-09-28] MEDS: PANTOPRAZOLE 40 MG TABLET PO SCH (06:49)
[2020-09-28] MEDS: metFORMIN HCL 500 MG TABLET (FP) PO SCH ×2 (06:49→17:08)
[2020-09-28] MEDS: INSULIN SLIDING SCALE (NOVOLOG) 1 VIAL SQ SCH ×2 (07:08→17:09)
[2020-09-28] MEDS: METHOCARBAMOL 500 MG TABLET PO SCH ×5 (10:28→21:53)
[2020-09-28] MEDS: ACETAMINOPHEN 325 MG TABLET (FP) PO PRN ×2 (12:40→21:53)
[2020-09-28] MEDS: hydrOXYzine PAMOATE 25 MG CAPSULE (FP) PO PRN ×3 (12:41→21:53)
[2020-09-28] MEDS: MAG HYDROX/AL HYDROX/SIMETH 30 ML UNIT-DOSE CUP PO PRN (12:42)
[2020-09-28] MEDS: THIAMINE HCL 100 MG TABLET (FP) PO SCH (21:53)
[2020-09-28] MEDS: MELATONIN 5 MG TABLETS PO SCH (21:53)
[2020-09-28] MEDS: ATORVASTATIN CA 20 MG TABLET (FP) PO SCH (21:53)
[2020-09-29] MEDS: NIFEdipine E.R 60 MG TABLET PO SCH (07:09)
[2020-09-29] MEDS: metFORMIN HCL 500 MG TABLET (FP) PO SCH ×2 (07:09→17:09)
[2020-09-29] MEDS: PANTOPRAZOLE 40 MG TABLET PO SCH (07:09)
[2020-09-29] MEDS: NICOTINE 21 MG/24 HOURS TOPICAL PATCH TD SCH (07:09)
[2020-09-29] MEDS: PRENATAL VITAMINS W/ FOLIC ACID TABLET (FP) PO SCH (07:09)
[2020-09-29] MEDS: LISINOPRIL 20 MG TABLET PO SCH (07:09)
[2020-09-29] MEDS: INSULIN SLIDING SCALE (NOVOLOG) 1 VIAL SQ SCH ×2 (07:10→17:09)
[2020-09-29] MEDS: METHOCARBAMOL 500 MG TABLET PO SCH ×4 (11:10→21:21)
[2020-09-29] MEDS: hydrOXYzine PAMOATE 25 MG CAPSULE (FP) PO PRN ×2 (12:14→21:21)
[2020-09-29] MEDS: MELATONIN 5 MG TABLETS PO SCH (21:21)
[2020-09-29] MEDS: ATORVASTATIN CA 20 MG TABLET (FP) PO SCH (21:21)
[2020-09-29] MEDS: THIAMINE HCL 100 MG TABLET (FP) PO SCH (21:21)
[2020-09-30] MEDS: metFORMIN HCL 500 MG TABLET (FP) PO SCH ×2 (06:51→16:54)
[2020-09-30] MEDS: PANTOPRAZOLE 40 MG TABLET PO SCH (06:51)
[2020-09-30] MEDS: PRENATAL VITAMINS W/ FOLIC ACID TABLET (FP) PO SCH (06:51)
[2020-09-30] MEDS: NIFEdipine E.R 60 MG TABLET PO SCH (06:51)
[2020-09-30] MEDS: NICOTINE 21 MG/24 HOURS TOPICAL PATCH TD SCH (06:52)
[2020-09-30] MEDS: MAG HYDROX/AL HYDROX/SIMETH 30 ML UNIT-DOSE CUP PO PRN (06:52)
[2020-09-30] MEDS: INSULIN SLIDING SCALE (NOVOLOG) 1 VIAL SQ SCH ×2 (06:54→16:54)
[2020-09-30] MEDS: LISINOPRIL 20 MG TABLET PO SCH (07:20)
[2020-09-30] MEDS: METHOCARBAMOL 500 MG TABLET PO SCH ×4 (11:14→21:37)
[2020-09-30] MEDS: hydrOXYzine PAMOATE 25 MG CAPSULE (FP) PO PRN ×2 (14:37→21:34)
[2020-09-30] MEDS ORDERED: PENICILLIN G BENZATHINE 2,400,000 UNIT/4 ML PFS IM ONE (14:59)
[2020-09-30] MEDS: ACETAMINOPHEN 325 MG TABLET (FP) PO PRN (16:53)
[2020-09-30] MEDS: ATORVASTATIN CA 20 MG TABLET (FP) PO SCH (21:34)
[2020-09-30] MEDS: MELATONIN 5 MG TABLETS PO SCH (21:35)
[2020-09-30] MEDS: FAMOTIDINE 20 MG TABLET PO SCH (21:36)
[2020-09-30] MEDS: THIAMINE HCL 100 MG TABLET (FP) PO SCH (21:37)
[2020-10-01] MEDS ORDERED: INSULIN (NOVOLOG) ASPART 100 UNITS/ML 10ML VIAL ONE (04:03)
[2020-10-01] MEDS: metFORMIN HCL 500 MG TABLET (FP) PO SCH ×2 (06:42→17:04)
[2020-10-01] MEDS: NICOTINE 21 MG/24 HOURS TOPICAL PATCH TD SCH (06:42)
[2020-10-01] MEDS: LISINOPRIL 20 MG TABLET PO SCH (06:42)
[2020-10-01] MEDS: ACETAMINOPHEN 325 MG TABLET (FP) PO PRN (06:42)
[2020-10-01] MEDS: PRENATAL VITAMINS W/ FOLIC ACID TABLET (FP) PO SCH (06:42)
[2020-10-01] MEDS: NIFEdipine E.R 60 MG TABLET PO SCH (06:42)
[2020-10-01] MEDS: INSULIN SLIDING SCALE (NOVOLOG) 1 VIAL SQ SCH ×2 (06:44→17:04)
[2020-10-01] MEDS: METHOCARBAMOL 500 MG TABLET PO SCH ×4 (10:04→21:07)
[2020-10-01] MEDS: FAMOTIDINE 20 MG TABLET PO SCH ×2 (10:05→21:07)
[2020-10-01] MEDS: hydrOXYzine PAMOATE 25 MG CAPSULE (FP) PO PRN ×2 (10:05→14:30)
[2020-10-01] MEDS: ATORVASTATIN CA 20 MG TABLET (FP) PO SCH (21:06)
[2020-10-01] MEDS: THIAMINE HCL 100 MG TABLET (FP) PO SCH (21:07)
[2020-10-01] MEDS: MELATONIN 5 MG TABLETS PO SCH (21:07)
[2020-10-02] MEDS: NICOTINE 21 MG/24 HOURS TOPICAL PATCH TD SCH (06:12)
[2020-10-02] MEDS: LISINOPRIL 20 MG TABLET PO SCH (06:14)
[2020-10-02] MEDS: metFORMIN HCL 500 MG TABLET (FP) PO SCH ×2 (06:14→17:00)
[2020-10-02] MEDS: NIFEdipine E.R 60 MG TABLET PO SCH (06:14)
[2020-10-02] MEDS: PRENATAL VITAMINS W/ FOLIC ACID TABLET (FP) PO SCH (06:15)
[2020-10-02] MEDS: INSULIN SLIDING SCALE (NOVOLOG) 1 VIAL SQ SCH ×2 (06:19→17:00)
[2020-10-02] MEDS: FAMOTIDINE 20 MG TABLET PO SCH ×2 (09:54→21:41)
[2020-10-02] MEDS: METHOCARBAMOL 500 MG TABLET PO SCH ×4 (09:54→21:41)
[2020-10-02] MEDS: ATORVASTATIN CA 20 MG TABLET (FP) PO SCH (21:41)
[2020-10-02] MEDS: hydrOXYzine PAMOATE 25 MG CAPSULE (FP) PO PRN (21:41)
[2020-10-02] MEDS: MELATONIN 5 MG TABLETS PO SCH (21:41)
[2020-10-02] MEDS: THIAMINE HCL 100 MG TABLET (FP) PO SCH (21:41)
[2020-10-03] MEDS: NIFEdipine E.R 60 MG TABLET PO SCH (06:42)
[2020-10-03] MEDS: LISINOPRIL 20 MG TABLET PO SCH (06:42)
[2020-10-03] MEDS: metFORMIN HCL 500 MG TABLET (FP) PO SCH (06:42)
[2020-10-03] MEDS: PRENATAL VITAMINS W/ FOLIC ACID TABLET (FP) PO SCH (06:43)
[2020-10-03] MEDS: NICOTINE 21 MG/24 HOURS TOPICAL PATCH TD SCH (06:43)
[2020-10-03] MEDS: INSULIN SLIDING SCALE (NOVOLOG) 1 VIAL SQ SCH (06:45)
[2020-10-03 07:08] VITALS: BP 128/85; PULSE 74; TEMP 96.6
[2020-10-07] MEDS ORDERED: PENICILLIN G BENZATHINE 2,400,000 UNIT/4 ML PFS IM ONE (10:00)
== END 2020-10-03 08:40 | disposition home or self-care (01) | DRG 772 ==
LOC: YASAS 12:15 → Y5N 12:17
PROVIDERS: ADMIT Allergy & Immunology; ATTEND Allergy & Immunology
PROC: HZ42ZZZ Group Counseling for Substance Abuse Treatment, Cognitive-Behavioral (ICD-10-PCS; principal; 2020-09-24)
DX: F10.20 Alcohol dependence, uncomplicated (principal); F14.20 Cocaine dependence, uncomplicated; F17.210 Nicotine dependence, cigarettes, uncomplicated; F32.9 Major depressive disorder, single episode, unspecified; I10 Essential (primary) hypertension; K21.9 Gastro-esophageal reflux disease without esophagitis; A53.9 Syphilis, unspecified; M54.5 Low back pain; G89.29 Other chronic pain; E11.9 Type 2 diabetes mellitus without complications; Z79.84 Long term (current) use of oral hypoglycemic drugs; Z91.013 Allergy to seafood
CPT/HCPCS: 36415; 82962; 86593; 86780

== ENCOUNTER 2021-11-12 17:43 | Inpatient (IN) | payer OTHER ==
[2021-11-12] MEDS ORDERED: chlordiazePOXIDE HCL 25 MG CAPSULE PO PRN (21:56)
[2021-11-12] MEDS ORDERED: ACETAMINOPHEN 325 MG TABLET (FP) PO PRN (22:00)
[2021-11-12] MEDS ORDERED: MAGNESIUM CITRATE 300 ML BOTTLE PO PRN (22:00)
[2021-11-12] MEDS ORDERED: NICOTINE POLACRILEX 2 MG GUM BUC PRN (22:00)
[2021-11-12] MEDS ORDERED: MAG HYDROX/AL HYDROX/SIMETH 30 ML UNIT-DOSE CUP PO PRN (22:00)
[2021-11-12] MEDS ORDERED: MAGNESIUM HYDROX 2400MG/30ML ORAL SUSPENSION 30 ML CUP PO PRN (22:00)
[2021-11-12] MEDS ORDERED: MENTHOL/PHENOL 1 EACH UD MM PRN (22:00)
[2021-11-12] MEDS ORDERED: ONDANSETRON *ODT* 4 MG TABLET SL PRN (22:00)
[2021-11-12] MEDS ORDERED: BISMUTH SUBSALICYLATE 524 MG/30 ML PO PRN (22:00)
[2021-11-12] MEDS ORDERED: chlordiazePOXIDE HCL 25 MG CAPSULE ONE (22:15)
[2021-11-12 22:37] VITALS: BMI 31.1
[2021-11-12] MEDS ORDERED: chlordiazePOXIDE HCL 25 MG CAPSULE PO SCH (23:00)
[2021-11-13] MEDS ORDERED: diazePAM 5 MG TABLET ONE (00:54)
[2021-11-13] MEDS: THIAMINE HCL 100 MG TABLET (FP) PO SCH ×2 (00:58→22:15)
[2021-11-13] MEDS: diazePAM 5 MG TABLET PO SCH ×5 (00:59→22:15)
[2021-11-13] MEDS: ATORVASTATIN CA 20 MG TABLET (FP) PO SCH ×2 (03:12→22:15)
[2021-11-13] MEDS ORDERED: PANTOPRAZOLE 40 MG TABLET PO SCH (10:00)
[2021-11-13] MEDS: PRENATAL VITAMINS W/ FOLIC ACID TABLET (FP) PO SCH (10:29)
[2021-11-13] MEDS: NIFEdipine E.R 60 MG TABLET PO SCH (11:33)
[2021-11-13] MEDS ORDERED: FLU VACC QS2021-22(6MOS UP)/PF 60 MCG/0.5 ML SYRINGE IM ONE (12:00)
[2021-11-13] MEDS: PANTOPRAZOLE 20 MG TABLET PO SCH (12:20)
[2021-11-13] MEDS: LISINOPRIL 20 MG TABLET PO SCH (12:20)
[2021-11-13 13:37] LABS: HEMATOCRIT 41.1 % (35.4-49); HEMOGLOBIN 13.3 GM/dL (11.7-16.9); MCH 27.6 pg (25.7-33.7); MCHC 32.5 g/dl (32.0-35.9); MEAN CELL VOLUME 84.9 fl (80-96); MEAN PLT VOLUME 10.2 fl (7.5-11.1); PLATELET COUNT 182 10^3/uL (134-434); RBC 4.84 M/mm3 (4.00-5.60); RDW 15.7 % (11.9-15.9); WHITE BLOOD COUNT 4.5 K/mm3 (4.0-10.0)
[2021-11-13 13:51] LABS: ALBUMIN 3.4 g/dl (3.4-5.0); BLOOD UREA NITROGEN 16.1 mg/dL (7-18); CALCIUM 8.3 mg/dL (8.5-10.1)
[2021-11-13 13:59] LABS: BILIRUBIN,TOTAL 0.4 mg/dL (0.2-1); CREATININE 1.1 mg/dL (0.55-1.3); TOT PROT 6.3 g/dl (6.4-8.2)
[2021-11-13 15:32] LABS: HIV INTERPRETATION NEGATIVE (NEGATIVE)
[2021-11-13] MEDS: metFORMIN HCL 500 MG TABLET (FP) PO SCH (18:18)
[2021-11-13] MEDS: hydrOXYzine PAMOATE 25 MG CAPSULE (FP) PO PRN (22:16)
[2021-11-13] MEDS: MELATONIN 5 MG TABLETS PO PRN (22:16)
[2021-11-13] MEDS: IBUPROFEN 400 MG TABLET (FP) PO PRN (22:17)
[2021-11-14] MEDS ORDERED: chlordiazePOXIDE HCL 25 MG CAPSULE PO SCH (05:00)
[2021-11-14] MEDS: diazePAM 5 MG TABLET PO SCH ×3 (05:21→22:08)
[2021-11-14] MEDS: IBUPROFEN 400 MG TABLET (FP) PO PRN ×3 (05:22→22:08)
[2021-11-14] MEDS: metFORMIN HCL 500 MG TABLET (FP) PO SCH ×2 (06:12→17:26)
[2021-11-14] MEDS: PANTOPRAZOLE 20 MG TABLET PO SCH (10:13)
[2021-11-14] MEDS: PRENATAL VITAMINS W/ FOLIC ACID TABLET (FP) PO SCH (10:13)
[2021-11-14] MEDS: NIFEdipine E.R 60 MG TABLET PO SCH (10:13)
[2021-11-14] MEDS: LISINOPRIL 20 MG TABLET PO SCH (10:13)
[2021-11-14] MEDS: diazePAM 5 MG TABLET PO PRN (17:22)
[2021-11-14] MEDS: ACETAMINOPHEN 325 MG TABLET (FP) PO PRN (17:24)
[2021-11-14] MEDS: hydrOXYzine PAMOATE 25 MG CAPSULE (FP) PO PRN (22:08)
[2021-11-14] MEDS: ATORVASTATIN CA 20 MG TABLET (FP) PO SCH (22:08)
[2021-11-14] MEDS: THIAMINE HCL 100 MG TABLET (FP) PO SCH (22:09)
[2021-11-14] MEDS: MELATONIN 5 MG TABLETS PO PRN (22:09)
[2021-11-14] MEDS: BENZOCAINE 20 % GEL TUBE MM PRN (22:53)
[2021-11-15] MEDS ORDERED: chlordiazePOXIDE HCL 10 MG CAPSULE PO PRN
[2021-11-15] MEDS ORDERED: chlordiazePOXIDE HCL 10 MG CAPSULE PO SCH (05:00)
[2021-11-15] MEDS: diazePAM 5 MG TABLET PO SCH ×2 (05:28→17:30)
[2021-11-15] MEDS: ACETAMINOPHEN 325 MG TABLET (FP) PO PRN ×2 (05:32→22:28)
[2021-11-15] MEDS: metFORMIN HCL 500 MG TABLET (FP) PO SCH ×2 (07:24→17:30)
[2021-11-15] MEDS: LISINOPRIL 20 MG TABLET PO SCH (10:23)
[2021-11-15] MEDS: PRENATAL VITAMINS W/ FOLIC ACID TABLET (FP) PO SCH (10:23)
[2021-11-15] MEDS: NIFEdipine E.R 60 MG TABLET PO SCH (10:23)
[2021-11-15] MEDS: PANTOPRAZOLE 20 MG TABLET PO SCH (10:23)
[2021-11-15] MEDS: diazePAM 5 MG TABLET PO PRN ×2 (10:24→22:29)
[2021-11-15] MEDS: IBUPROFEN 400 MG TABLET (FP) PO PRN ×2 (10:26→17:29)
[2021-11-15 14:11] LABS: SARS-CoV-2 NAA Not Detected (Not Detected)
[2021-11-15] MEDS: BENZOCAINE 20 % GEL TUBE MM PRN (22:27)
[2021-11-15] MEDS: THIAMINE HCL 100 MG TABLET (FP) PO SCH (22:28)
[2021-11-15] MEDS: hydrOXYzine PAMOATE 25 MG CAPSULE (FP) PO PRN (22:28)
[2021-11-15] MEDS: METHOCARBAMOL 500 MG TABLET PO PRN (22:28)
[2021-11-15] MEDS: ATORVASTATIN CA 20 MG TABLET (FP) PO SCH (22:28)
[2021-11-15] MEDS: MELATONIN 5 MG TABLETS PO PRN (22:28)
[2021-11-16] MEDS ORDERED: chlordiazePOXIDE HCL 10 MG CAPSULE PO SCH (05:00)
[2021-11-16] MEDS ORDERED: diazePAM 5 MG TABLET PO ONE (06:00)
[2021-11-16] MEDS: metFORMIN HCL 500 MG TABLET (FP) PO SCH ×2 (06:49→17:20)
[2021-11-16] MEDS: PANTOPRAZOLE 20 MG TABLET PO SCH (10:30)
[2021-11-16] MEDS: NIFEdipine E.R 60 MG TABLET PO SCH (10:30)
[2021-11-16] MEDS: IBUPROFEN 400 MG TABLET (FP) PO PRN ×2 (10:32→17:25)
[2021-11-16] MEDS: PRENATAL VITAMINS W/ FOLIC ACID TABLET (FP) PO SCH (10:32)
[2021-11-16] MEDS: LISINOPRIL 20 MG TABLET PO SCH (12:23)
[2021-11-16] MEDS: hydrOXYzine PAMOATE 25 MG CAPSULE (FP) PO PRN ×2 (17:24→22:43)
[2021-11-16] MEDS: ATORVASTATIN CA 20 MG TABLET (FP) PO SCH (22:43)
[2021-11-16] MEDS: THIAMINE HCL 100 MG TABLET (FP) PO SCH (22:43)
[2021-11-16] MEDS: MELATONIN 5 MG TABLETS PO PRN (22:43)
[2021-11-16] MEDS: METHOCARBAMOL 500 MG TABLET PO PRN (22:43)
[2021-11-17] MEDS ORDERED: chlordiazePOXIDE HCL 10 MG CAPSULE PO ONE (05:00)
[2021-11-17 05:51] VITALS: TEMP 97.5
[2021-11-17] MEDS: metFORMIN HCL 500 MG TABLET (FP) PO SCH (06:47)
[2021-11-17 09:04] VITALS: PULSE 84
[2021-11-17 09:05] VITALS: BP 153/85
[2021-11-17] MEDS: NIFEdipine E.R 60 MG TABLET PO SCH (10:33)
[2021-11-17] MEDS: LISINOPRIL 20 MG TABLET PO SCH (10:33)
[2021-11-17] MEDS: PANTOPRAZOLE 20 MG TABLET PO SCH (10:33)
[2021-11-17] MEDS: PRENATAL VITAMINS W/ FOLIC ACID TABLET (FP) PO SCH (10:33)
[2021-11-19 12:16] LABS: SARS-CoV-2 NAA Not Detected
== END 2021-11-17 10:29 | disposition home or self-care (01) | DRG 774 ==
LOC: YASAS 17:43 → Y3N 11-13 02:15
PROVIDERS: ADMIT Allergy & Immunology; ATTEND Allergy & Immunology
PROC: HZ2ZZZZ Detoxification Services for Substance Abuse Treatment (ICD-10-PCS; principal; 2021-11-13)
DX: F10.230 Alcohol dependence with withdrawal, uncomplicated (principal); F14.20 Cocaine dependence, uncomplicated; F17.210 Nicotine dependence, cigarettes, uncomplicated; A53.0 Latent syphilis, unspecified as early or late; I10 Essential (primary) hypertension; E78.00 Pure hypercholesterolemia, unspecified; E11.9 Type 2 diabetes mellitus without complications; Z79.84 Long term (current) use of oral hypoglycemic drugs; K21.9 Gastro-esophageal reflux disease without esophagitis; M54.50 Low back pain, unspecified; G89.29 Other chronic pain; Z86.73 Personal history of transient ischemic attack (TIA), and cerebral infarction without residual deficits; Z86.19 Personal history of other infectious and parasitic diseases; Z59.01 Sheltered homelessness
CPT/HCPCS: 36415; 80053; 82962; 85027; 86593; 86780; 87389; C9803; U0003; U0005

== ENCOUNTER 2022-06-17 12:18 | Inpatient (IN) | payer OTHER ==
[2022-06-17 14:15] VITALS: BMI 27.9
[2022-06-17] MEDS ORDERED: DICYCLOMINE HCL 10 MG CAPSULE PO PRN (16:44)
[2022-06-17] MEDS ORDERED: MAGNESIUM HYDROX 2400MG/30ML ORAL SUSPENSION 30 ML CUP PO PRN (16:44)
[2022-06-17] MEDS ORDERED: MAG HYDROX/AL HYDROX/SIMETH 30 ML UNIT-DOSE CUP PO PRN (16:44)
[2022-06-17] MEDS ORDERED: NALOXONE HCL (KLOXXADO) 8 MG SPRAY NS PRN (16:44)
[2022-06-17] MEDS ORDERED: BENZOCAINE/MENTHOL (CHLORASEPTIC ) LOZENGE MM PRN (16:44)
[2022-06-17] MEDS ORDERED: ACETAMINOPHEN 325 MG TABLET (FP) PO PRN (16:44)
[2022-06-17] MEDS ORDERED: MAGNESIUM CITRATE 300 ML BOTTLE PO PRN (16:44)
[2022-06-17] MEDS ORDERED: IBUPROFEN 400 MG TABLET (FP) PO PRN (16:44)
[2022-06-17] MEDS ORDERED: NICOTINE 10 MG CARTRIDGE (INHALER) IH PRN (16:44)
[2022-06-17] MEDS ORDERED: ONDANSETRON *ODT* 4 MG TABLET SL PRN (16:44)
[2022-06-17] MEDS ORDERED: BISMUTH SUBSALICYLATE 524 MG/30 ML PO PRN (16:44)
[2022-06-17] MEDS ORDERED: chlordiazePOXIDE HCL 25 MG CAPSULE PO PRN (16:44)
[2022-06-17] MEDS ORDERED: LOPERAMIDE HCL 2 MG CAPSULE PO PRN (16:44)
[2022-06-17] MEDS: chlordiazePOXIDE HCL 25 MG CAPSULE PO SCH ×2 (17:20→22:28)
[2022-06-17] MEDS: hydrOXYzine PAMOATE 25 MG CAPSULE (FP) PO SCH ×2 (17:20→22:28)
[2022-06-17] MEDS: METHOCARBAMOL 500 MG TABLET PO PRN (17:21)
[2022-06-17] MEDS: THIAMINE HCL 100 MG TABLET (FP) PO SCH (22:28)
[2022-06-17] MEDS: ATORVASTATIN CA 20 MG TABLET (FP) PO SCH (22:28)
[2022-06-17] MEDS: MELATONIN 5 MG TABLETS PO SCH (22:28)
[2022-06-18] MEDS: hydrOXYzine PAMOATE 25 MG CAPSULE (FP) PO SCH ×2 (05:46→10:14)
[2022-06-18] MEDS: chlordiazePOXIDE HCL 25 MG CAPSULE PO SCH ×4 (05:47→22:38)
[2022-06-18] MEDS: metFORMIN HCL 500 MG TABLET (FP) PO SCH ×2 (06:58→17:41)
[2022-06-18] MEDS: LISINOPRIL 20 MG TABLET PO SCH (10:14)
[2022-06-18] MEDS: PANTOPRAZOLE 20 MG TABLET PO SCH (10:14)
[2022-06-18] MEDS: PRENATAL VITAMINS W/ FOLIC ACID TABLET (FP) PO SCH (10:14)
[2022-06-18 10:54] LABS: ALBUMIN 2.7 g/dl (3.4-5.0); BLOOD UREA NITROGEN 15.6 mg/dL (7-18); CALCIUM 8.4 mg/dL (8.5-10.1)
[2022-06-18 10:55] LABS: HEMATOCRIT 42.8 % (35.4-49); HEMOGLOBIN 14.1 GM/dL (11.7-16.9); MCH 30.4 pg (25.7-33.7); MEAN CELL VOLUME 92.2 fl (80-96); MEAN PLT VOLUME 10.8 fl (7.5-11.1); PLATELET COUNT 199 10^3/uL (134-434); RBC 4.64 M/mm3 (4.00-5.60); RDW 13.8 % (11.9-15.9); WHITE BLOOD COUNT 6.4 K/mm3 (4.0-10.0)
[2022-06-18 10:57] LABS: CREATININE 1.1 mg/dL (0.55-1.3)
[2022-06-18 10:58] LABS: BILIRUBIN,TOTAL 0.3 mg/dL (0.2-1); TOT PROT 5.4 g/dl (6.4-8.2)
[2022-06-18] MEDS: NIFEdipine E.R 60 MG TABLET PO SCH (13:09)
[2022-06-18] MEDS: GABAPENTIN 300 MG CAPSULE PO SCH ×2 (13:09→22:39)
[2022-06-18] MEDS: METHOCARBAMOL 500 MG TABLET PO PRN (15:45)
[2022-06-18] MEDS: ACETAMINOPHEN 325 MG TABLET (FP) PO PRN (15:45)
[2022-06-18] MEDS: MELATONIN 5 MG TABLETS PO SCH (22:39)
[2022-06-18] MEDS: ATORVASTATIN CA 20 MG TABLET (FP) PO SCH (22:39)
[2022-06-18] MEDS: THIAMINE HCL 100 MG TABLET (FP) PO SCH (22:39)
[2022-06-19] MEDS: chlordiazePOXIDE HCL 25 MG CAPSULE PO SCH ×4 (06:30→22:24)
[2022-06-19] MEDS: GABAPENTIN 300 MG CAPSULE PO SCH ×3 (06:30→22:23)
[2022-06-19] MEDS: metFORMIN HCL 500 MG TABLET (FP) PO SCH ×2 (06:30→17:06)
[2022-06-19] MEDS: PANTOPRAZOLE 20 MG TABLET PO SCH (10:21)
[2022-06-19] MEDS: PRENATAL VITAMINS W/ FOLIC ACID TABLET (FP) PO SCH (10:21)
[2022-06-19] MEDS: hydrOXYzine PAMOATE 50 MG CAPSULE (FP) PO PRN ×2 (10:21→17:06)
[2022-06-19] MEDS: NIFEdipine E.R 60 MG TABLET PO SCH (10:22)
[2022-06-19] MEDS: LISINOPRIL 20 MG TABLET PO SCH (10:22)
[2022-06-19] MEDS: METHOCARBAMOL 500 MG TABLET PO PRN (10:22)
[2022-06-19] MEDS: ATORVASTATIN CA 20 MG TABLET (FP) PO SCH (22:23)
[2022-06-19] MEDS: MELATONIN 5 MG TABLETS PO SCH (22:23)
[2022-06-19] MEDS: THIAMINE HCL 100 MG TABLET (FP) PO SCH (22:23)
[2022-06-20] MEDS ORDERED: chlordiazePOXIDE HCL 10 MG CAPSULE PO PRN
[2022-06-20] MEDS: chlordiazePOXIDE HCL 10 MG CAPSULE PO SCH ×4 (05:51→22:18)
[2022-06-20] MEDS: GABAPENTIN 300 MG CAPSULE PO SCH ×3 (05:52→22:17)
[2022-06-20] MEDS: metFORMIN HCL 500 MG TABLET (FP) PO SCH ×2 (07:44→17:28)
[2022-06-20] MEDS: NIFEdipine E.R 60 MG TABLET PO SCH (10:27)
[2022-06-20] MEDS: PRENATAL VITAMINS W/ FOLIC ACID TABLET (FP) PO SCH (10:27)
[2022-06-20] MEDS: LISINOPRIL 20 MG TABLET PO SCH (10:27)
[2022-06-20] MEDS: PANTOPRAZOLE 20 MG TABLET PO SCH (10:27)
[2022-06-20] MEDS: METHOCARBAMOL 500 MG TABLET PO PRN (10:29)
[2022-06-20] MEDS: IBUPROFEN 600 MG TABLET (FP) PO PRN ×2 (17:07→22:16)
[2022-06-20] MEDS: ATORVASTATIN CA 20 MG TABLET (FP) PO SCH (22:17)
[2022-06-20] MEDS: MELATONIN 5 MG TABLETS PO SCH (22:18)
[2022-06-20] MEDS: THIAMINE HCL 100 MG TABLET (FP) PO SCH (22:18)
[2022-06-21] MEDS: chlordiazePOXIDE HCL 10 MG CAPSULE PO SCH ×2 (05:14→17:11)
[2022-06-21] MEDS: GABAPENTIN 300 MG CAPSULE PO SCH ×3 (05:15→22:07)
[2022-06-21] MEDS: metFORMIN HCL 500 MG TABLET (FP) PO SCH ×2 (08:23→17:11)
[2022-06-21] MEDS: PRENATAL VITAMINS W/ FOLIC ACID TABLET (FP) PO SCH (10:31)
[2022-06-21] MEDS: LISINOPRIL 20 MG TABLET PO SCH (10:31)
[2022-06-21] MEDS: PANTOPRAZOLE 20 MG TABLET PO SCH (10:31)
[2022-06-21] MEDS: NIFEdipine E.R 60 MG TABLET PO SCH (10:31)
[2022-06-21] MEDS: ACETAMINOPHEN 325 MG TABLET (FP) PO PRN (13:31)
[2022-06-21] MEDS: hydrOXYzine PAMOATE 50 MG CAPSULE (FP) PO PRN (17:11)
[2022-06-21] MEDS: ATORVASTATIN CA 20 MG TABLET (FP) PO SCH (22:07)
[2022-06-21] MEDS: THIAMINE HCL 100 MG TABLET (FP) PO SCH (22:07)
[2022-06-21] MEDS: MELATONIN 5 MG TABLETS PO SCH (22:08)
[2022-06-22] MEDS ORDERED: chlordiazePOXIDE HCL 10 MG CAPSULE PO ONE (05:00)
[2022-06-22] MEDS: GABAPENTIN 300 MG CAPSULE PO SCH (05:34)
[2022-06-22] MEDS: metFORMIN HCL 500 MG TABLET (FP) PO SCH (07:47)
[2022-06-22 09:37] VITALS: BP 127/69; PULSE 81; RESP 18; TEMP 98.1
[2022-06-22] MEDS: PANTOPRAZOLE 20 MG TABLET PO SCH (09:44)
[2022-06-22] MEDS: METHOCARBAMOL 500 MG TABLET PO PRN (09:44)
[2022-06-22] MEDS: PRENATAL VITAMINS W/ FOLIC ACID TABLET (FP) PO SCH (09:44)
[2022-06-22] MEDS: LISINOPRIL 20 MG TABLET PO SCH (09:44)
[2022-06-22] MEDS: NIFEdipine E.R 60 MG TABLET PO SCH (09:44)
== END 2022-06-22 12:25 | disposition other institution (70) | DRG 774 ==
LOC: YASAS 12:18 → Y6N 16:51
PROVIDERS: ADMIT Allergy & Immunology; ATTEND Surgery
PROC: HZ2ZZZZ Detoxification Services for Substance Abuse Treatment (ICD-10-PCS; principal; 2022-06-17)
DX: F10.230 Alcohol dependence with withdrawal, uncomplicated (principal); F14.20 Cocaine dependence, uncomplicated; F17.210 Nicotine dependence, cigarettes, uncomplicated; F19.282 Other psychoactive substance dependence with psychoactive substance-induced sleep disorder; F19.24 Other psychoactive substance dependence with psychoactive substance-induced mood disorder; I10 Essential (primary) hypertension; E78.5 Hyperlipidemia, unspecified; E11.9 Type 2 diabetes mellitus without complications; Z79.84 Long term (current) use of oral hypoglycemic drugs; K21.9 Gastro-esophageal reflux disease without esophagitis; M54.50 Low back pain, unspecified; G89.29 Other chronic pain; R76.8 Other specified abnormal immunological findings in serum; Z86.73 Personal history of transient ischemic attack (TIA), and cerebral infarction without residual deficits
CPT/HCPCS: 36415; 80053; 82962; 85027; 86593; 86780; C9803-CS; U0003; U0005

== ENCOUNTER 2022-06-22 12:53 | Inpatient (IN) | payer OTHER ==
[2022-06-22] MEDS ORDERED: MAG HYDROX/AL HYDROX/SIMETH 30 ML UNIT-DOSE CUP PO PRN (12:57)
[2022-06-22] MEDS ORDERED: IBUPROFEN 400 MG TABLET (FP) PO PRN (12:57)
[2022-06-22] MEDS ORDERED: MAGNESIUM CITRATE 300 ML BOTTLE PO PRN (12:57)
[2022-06-22] MEDS ORDERED: NICOTINE POLACRILEX 2 MG GUM BC PRN (12:57)
[2022-06-22] MEDS ORDERED: NICOTINE 10 MG CARTRIDGE (INHALER) IH PRN (12:57)
[2022-06-22] MEDS ORDERED: LOPERAMIDE HCL 2 MG CAPSULE PO PRN (12:57)
[2022-06-22] MEDS ORDERED: MAGNESIUM HYDROX 2400MG/30ML ORAL SUSPENSION 30 ML CUP PO PRN (12:57)
[2022-06-22] MEDS ORDERED: guaiFENesin 200 MG/10 ML 10 ML UNIT-DOSE CUPS PO PRN (12:57)
[2022-06-22] MEDS: metFORMIN HCL 500 MG TABLET (FP) PO SCH (16:35)
[2022-06-22] MEDS: THIAMINE HCL 100 MG TABLET (FP) PO SCH (21:35)
[2022-06-22] MEDS: MELATONIN 5 MG TABLETS PO SCH (21:35)
[2022-06-22] MEDS: hydrOXYzine PAMOATE 25 MG CAPSULE (FP) PO PRN ×2 (21:36→21:39)
[2022-06-22] MEDS: ACETAMINOPHEN 325 MG TABLET (FP) PO PRN (21:37)
[2022-06-22] MEDS: ATORVASTATIN CA 20 MG TABLET (FP) PO SCH (21:38)
[2022-06-23] MEDS: metFORMIN HCL 500 MG TABLET (FP) PO SCH ×2 (05:00→07:38)
[2022-06-23] MEDS: NICOTINE 7 MG/24 HOURS TOPICAL PATCH TD SCH (10:36)
[2022-06-23] MEDS: LISINOPRIL 20 MG TABLET PO SCH (10:36)
[2022-06-23] MEDS: NIFEdipine E.R 60 MG TABLET PO SCH (10:36)
[2022-06-23] MEDS: PRENATAL VITAMINS W/ FOLIC ACID TABLET (FP) PO SCH (10:36)
[2022-06-23] MEDS: GABAPENTIN 300 MG CAPSULE PO SCH ×2 (15:19→21:50)
[2022-06-23] MEDS: METHOCARBAMOL 500 MG TABLET PO PRN ×2 (15:20→21:50)
[2022-06-23] MEDS: hydrOXYzine PAMOATE 25 MG CAPSULE (FP) PO PRN ×2 (15:20→21:50)
[2022-06-23] MEDS: THIAMINE HCL 100 MG TABLET (FP) PO SCH (21:50)
[2022-06-23] MEDS: ATORVASTATIN CA 20 MG TABLET (FP) PO SCH (21:50)
[2022-06-23] MEDS: MELATONIN 5 MG TABLETS PO SCH (21:50)
[2022-06-24] MEDS: metFORMIN HCL 500 MG TABLET (FP) PO SCH ×2 (06:32→16:58)
[2022-06-24] MEDS: GABAPENTIN 300 MG CAPSULE PO SCH ×3 (06:32→21:22)
[2022-06-24] MEDS: hydrOXYzine PAMOATE 25 MG CAPSULE (FP) PO PRN (06:32)
[2022-06-24] MEDS: NICOTINE 7 MG/24 HOURS TOPICAL PATCH TD SCH (09:42)
[2022-06-24] MEDS: PRENATAL VITAMINS W/ FOLIC ACID TABLET (FP) PO SCH (09:42)
[2022-06-24] MEDS: LISINOPRIL 20 MG TABLET PO SCH (10:08)
[2022-06-24] MEDS: NIFEdipine E.R 60 MG TABLET PO SCH (10:08)
[2022-06-24] MEDS: BACLOFEN 10 MG TABLET (FP) PO SCH ×2 (13:17→21:22)
[2022-06-24] MEDS: MELATONIN 5 MG TABLETS PO SCH (21:22)
[2022-06-24] MEDS: THIAMINE HCL 100 MG TABLET (FP) PO SCH (21:22)
[2022-06-24] MEDS: ATORVASTATIN CA 20 MG TABLET (FP) PO SCH (21:22)
[2022-06-25] MEDS: BACLOFEN 10 MG TABLET (FP) PO SCH (06:46)
[2022-06-25] MEDS: GABAPENTIN 300 MG CAPSULE PO SCH ×3 (06:46→21:17)
[2022-06-25] MEDS: metFORMIN HCL 500 MG TABLET (FP) PO SCH ×2 (06:46→17:11)
[2022-06-25] MEDS: ACETAMINOPHEN 325 MG TABLET (FP) PO PRN (08:53)
[2022-06-25] MEDS: LISINOPRIL 20 MG TABLET PO SCH (10:05)
[2022-06-25] MEDS: NIFEdipine E.R 60 MG TABLET PO SCH (10:06)
[2022-06-25] MEDS: PRENATAL VITAMINS W/ FOLIC ACID TABLET (FP) PO SCH (10:06)
[2022-06-25] MEDS: BACLOFEN 10 MG TABLET (FP) PO PRN (12:30)
[2022-06-25] MEDS: MELATONIN 5 MG TABLETS PO SCH (21:17)
[2022-06-25] MEDS: ATORVASTATIN CA 20 MG TABLET (FP) PO SCH (21:17)
[2022-06-25] MEDS: hydrOXYzine PAMOATE 25 MG CAPSULE (FP) PO PRN (21:17)
[2022-06-25] MEDS: THIAMINE HCL 100 MG TABLET (FP) PO SCH (21:17)
[2022-06-26] MEDS: GABAPENTIN 300 MG CAPSULE PO SCH ×3 (06:28→21:35)
[2022-06-26] MEDS: metFORMIN HCL 500 MG TABLET (FP) PO SCH ×2 (06:28→16:35)
[2022-06-26] MEDS: PRENATAL VITAMINS W/ FOLIC ACID TABLET (FP) PO SCH (09:44)
[2022-06-26] MEDS: NIFEdipine E.R 60 MG TABLET PO SCH (09:45)
[2022-06-26] MEDS: LISINOPRIL 20 MG TABLET PO SCH (09:45)
[2022-06-26] MEDS: BACLOFEN 10 MG TABLET (FP) PO PRN ×2 (09:46→21:37)
[2022-06-26] MEDS: ACETAMINOPHEN 325 MG TABLET (FP) PO PRN (09:47)
[2022-06-26] MEDS: ATORVASTATIN CA 20 MG TABLET (FP) PO SCH (21:35)
[2022-06-26] MEDS: MELATONIN 5 MG TABLETS PO SCH (21:35)
[2022-06-26] MEDS: THIAMINE HCL 100 MG TABLET (FP) PO SCH (21:35)
[2022-06-26] MEDS: hydrOXYzine PAMOATE 25 MG CAPSULE (FP) PO PRN (21:37)
[2022-06-27] MEDS: GABAPENTIN 300 MG CAPSULE PO SCH ×3 (06:54→21:22)
[2022-06-27] MEDS: metFORMIN HCL 500 MG TABLET (FP) PO SCH ×2 (06:54→14:43)
[2022-06-27] MEDS: BACLOFEN 10 MG TABLET (FP) PO PRN (09:15)
[2022-06-27] MEDS: NIFEdipine E.R 60 MG TABLET PO SCH (09:16)
[2022-06-27] MEDS: LISINOPRIL 20 MG TABLET PO SCH (09:16)
[2022-06-27] MEDS: ACETAMINOPHEN 325 MG TABLET (FP) PO PRN (09:17)
[2022-06-27] MEDS: PRENATAL VITAMINS W/ FOLIC ACID TABLET (FP) PO SCH (09:17)
[2022-06-27] MEDS: LIDOCAINE 5% TOPICAL PATCH TP SCH (12:21)
[2022-06-27] MEDS: MELATONIN 5 MG TABLETS PO SCH (21:22)
[2022-06-27] MEDS: LIDOCAINE PATCH REMOVAL MC SCH (21:22)
[2022-06-27] MEDS: THIAMINE HCL 100 MG TABLET (FP) PO SCH (21:22)
[2022-06-27] MEDS: ATORVASTATIN CA 20 MG TABLET (FP) PO SCH (21:22)
[2022-06-27] MEDS: hydrOXYzine PAMOATE 25 MG CAPSULE (FP) PO PRN (21:24)
[2022-06-28] MEDS: GABAPENTIN 300 MG CAPSULE PO SCH ×3 (06:42→22:17)
[2022-06-28] MEDS: metFORMIN HCL 500 MG TABLET (FP) PO SCH ×2 (06:42→17:41)
[2022-06-28] MEDS: LIDOCAINE 5% TOPICAL PATCH TP SCH (09:49)
[2022-06-28] MEDS: NIFEdipine E.R 60 MG TABLET PO SCH (09:49)
[2022-06-28] MEDS: LISINOPRIL 20 MG TABLET PO SCH (09:49)
[2022-06-28] MEDS: BACLOFEN 10 MG TABLET (FP) PO PRN ×2 (09:50→17:38)
[2022-06-28] MEDS: ACETAMINOPHEN 325 MG TABLET (FP) PO PRN ×2 (09:51→13:29)
[2022-06-28] MEDS: PRENATAL VITAMINS W/ FOLIC ACID TABLET (FP) PO SCH (09:52)
[2022-06-28] MEDS: ATORVASTATIN CA 20 MG TABLET (FP) PO SCH (22:17)
[2022-06-28] MEDS: MELATONIN 5 MG TABLETS PO SCH (22:17)
[2022-06-28] MEDS: THIAMINE HCL 100 MG TABLET (FP) PO SCH (22:17)
[2022-06-28] MEDS: LIDOCAINE PATCH REMOVAL MC SCH (22:17)
[2022-06-29] MEDS: metFORMIN HCL 500 MG TABLET (FP) PO SCH ×2 (06:56→16:28)
[2022-06-29] MEDS: GABAPENTIN 300 MG CAPSULE PO SCH ×3 (06:56→21:18)
[2022-06-29] MEDS: BACLOFEN 10 MG TABLET (FP) PO PRN (06:58)
[2022-06-29] MEDS: LISINOPRIL 20 MG TABLET PO SCH (09:48)
[2022-06-29] MEDS: PRENATAL VITAMINS W/ FOLIC ACID TABLET (FP) PO SCH (09:48)
[2022-06-29] MEDS: LIDOCAINE 5% TOPICAL PATCH TP SCH (09:48)
[2022-06-29] MEDS: NIFEdipine E.R 60 MG TABLET PO SCH (09:48)
[2022-06-29] MEDS: ACETAMINOPHEN 325 MG TABLET (FP) PO PRN ×2 (11:42→16:28)
[2022-06-29] MEDS: ATORVASTATIN CA 20 MG TABLET (FP) PO SCH (21:18)
[2022-06-29] MEDS: THIAMINE HCL 100 MG TABLET (FP) PO SCH (21:18)
[2022-06-29] MEDS: hydrOXYzine PAMOATE 25 MG CAPSULE (FP) PO PRN (21:18)
[2022-06-29] MEDS: MELATONIN 5 MG TABLETS PO SCH (21:18)
[2022-06-29] MEDS: LIDOCAINE PATCH REMOVAL MC SCH (21:19)
[2022-06-30] MEDS: GABAPENTIN 300 MG CAPSULE PO SCH ×3 (06:41→21:34)
[2022-06-30] MEDS: metFORMIN HCL 500 MG TABLET (FP) PO SCH ×2 (06:41→18:49)
[2022-06-30] MEDS: METHOCARBAMOL 750 MG TABLET PO PRN (06:45)
[2022-06-30] MEDS: PRENATAL VITAMINS W/ FOLIC ACID TABLET (FP) PO SCH (09:51)
[2022-06-30] MEDS: NIFEdipine E.R 60 MG TABLET PO SCH (09:51)
[2022-06-30] MEDS: LISINOPRIL 20 MG TABLET PO SCH (09:51)
[2022-06-30] MEDS: LIDOCAINE 5% TOPICAL PATCH TP SCH (09:52)
[2022-06-30] MEDS ORDERED: CALAMINE 8% TOPICAL LOTION 177 ML BOTTLE TP PRN (10:23)
[2022-06-30] MEDS ORDERED: diphenhydrAMINE HCL 25 MG CAPSULE (FP) PO ONE (10:24)
[2022-06-30] MEDS: THIAMINE HCL 100 MG TABLET (FP) PO SCH (21:34)
[2022-06-30] MEDS: MELATONIN 5 MG TABLETS PO SCH (21:34)
[2022-06-30] MEDS: hydrOXYzine PAMOATE 25 MG CAPSULE (FP) PO PRN (21:34)
[2022-06-30] MEDS: ATORVASTATIN CA 20 MG TABLET (FP) PO SCH (21:34)
[2022-06-30] MEDS: ACETAMINOPHEN 325 MG TABLET (FP) PO PRN (21:36)
[2022-06-30] MEDS: LIDOCAINE PATCH REMOVAL MC SCH (21:37)
[2022-07-01] MEDS: metFORMIN HCL 500 MG TABLET (FP) PO SCH ×2 (06:33→23:05)
[2022-07-01] MEDS: GABAPENTIN 300 MG CAPSULE PO SCH ×3 (06:34→21:20)
[2022-07-01] MEDS: METHOCARBAMOL 750 MG TABLET PO PRN (06:34)
[2022-07-01] MEDS: PRENATAL VITAMINS W/ FOLIC ACID TABLET (FP) PO SCH (10:11)
[2022-07-01] MEDS: LIDOCAINE 5% TOPICAL PATCH TP SCH (10:12)
[2022-07-01] MEDS: NIFEdipine E.R 60 MG TABLET PO SCH (10:12)
[2022-07-01] MEDS: LISINOPRIL 20 MG TABLET PO SCH (10:12)
[2022-07-01] MEDS: ACETAMINOPHEN 325 MG TABLET (FP) PO PRN (10:13)
[2022-07-01] MEDS ORDERED: diphenhydrAMINE HCL 25 MG CAPSULE (FP) PO ONE ×2 (14:32→20:09)
[2022-07-01] MEDS: diphenhydrAMINE HCL 50 MG CAPSULE PO PRN ×2 (14:34→21:20)
[2022-07-01] MEDS: ATORVASTATIN CA 20 MG TABLET (FP) PO SCH (21:20)
[2022-07-01] MEDS: THIAMINE HCL 100 MG TABLET (FP) PO SCH (21:20)
[2022-07-01] MEDS: LIDOCAINE PATCH REMOVAL MC SCH (22:13)
[2022-07-01] MEDS: MELATONIN 5 MG TABLETS PO SCH (22:14)
[2022-07-02] MEDS: metFORMIN HCL 500 MG TABLET (FP) PO SCH ×2 (06:40→18:18)
[2022-07-02] MEDS: GABAPENTIN 300 MG CAPSULE PO SCH ×3 (06:41→21:10)
[2022-07-02 06:43] VITALS: RESP 16
[2022-07-02] MEDS: LIDOCAINE 5% TOPICAL PATCH TP SCH (10:05)
[2022-07-02] MEDS: NIFEdipine E.R 60 MG TABLET PO SCH (10:05)
[2022-07-02] MEDS: PRENATAL VITAMINS W/ FOLIC ACID TABLET (FP) PO SCH (10:05)
[2022-07-02] MEDS: LISINOPRIL 20 MG TABLET PO SCH (10:05)
[2022-07-02] MEDS: ACETAMINOPHEN 325 MG TABLET (FP) PO PRN (10:07)
[2022-07-02] MEDS ORDERED: diphenhydrAMINE HCL 25 MG CAPSULE (FP) PO ONE (18:19)
[2022-07-02] MEDS: diphenhydrAMINE HCL 50 MG CAPSULE PO PRN (18:20)
[2022-07-02] MEDS: THIAMINE HCL 100 MG TABLET (FP) PO SCH (21:10)
[2022-07-02] MEDS: MELATONIN 5 MG TABLETS PO SCH (21:10)
[2022-07-02] MEDS: ATORVASTATIN CA 20 MG TABLET (FP) PO SCH (21:10)
[2022-07-02] MEDS: LIDOCAINE PATCH REMOVAL MC SCH (21:11)
[2022-07-03 06:44] VITALS: BP 111/71; PULSE 80; TEMP 97.5
[2022-07-03] MEDS: metFORMIN HCL 500 MG TABLET (FP) PO SCH (06:44)
[2022-07-03] MEDS: GABAPENTIN 300 MG CAPSULE PO SCH (06:44)
== END 2022-07-03 07:25 | disposition home or self-care (01) | DRG 774 ==
LOC: YASAS 12:53 → Y3E 12:54
PROVIDERS: ADMIT Allergy & Immunology; ATTEND Psychiatry & Neurology Pain Medicine
PROC: HZ2ZZZZ Detoxification Services for Substance Abuse Treatment (ICD-10-PCS; principal; 2022-06-22)
DX: F10.20 Alcohol dependence, uncomplicated (principal); F14.20 Cocaine dependence, uncomplicated; F17.210 Nicotine dependence, cigarettes, uncomplicated; I10 Essential (primary) hypertension; E78.5 Hyperlipidemia, unspecified; E11.9 Type 2 diabetes mellitus without complications; Z79.84 Long term (current) use of oral hypoglycemic drugs; K21.9 Gastro-esophageal reflux disease without esophagitis; M54.50 Low back pain, unspecified; G89.29 Other chronic pain; R21 Rash and other nonspecific skin eruption; R76.8 Other specified abnormal immunological findings in serum
CPT/HCPCS: 82962; J0475

== ENCOUNTER 2023-05-13 17:20 | Inpatient (IN) | payer BC ==
[2023-05-13 19:02] VITALS: BMI 28.8
[2023-05-13] MEDS ORDERED: MAGNESIUM HYDROX 2400MG/30ML ORAL SUSPENSION 30 ML CUP PO PRN (19:48)
[2023-05-13] MEDS ORDERED: LOPERAMIDE HCL 2 MG CAPSULE PO PRN (19:48)
[2023-05-13] MEDS ORDERED: NALOXONE HCL 0.4 MG/ML VIAL IM PRN (19:48)
[2023-05-13] MEDS ORDERED: ACETAMINOPHEN 325 MG TABLET (FP) PO PRN (19:48)
[2023-05-13] MEDS ORDERED: BISMUTH SUBSALICYLATE 524 MG/30 ML PO PRN (19:48)
[2023-05-13] MEDS ORDERED: NALOXONE HCL (KLOXXADO) 8 MG SPRAY NS PRN (19:48)
[2023-05-13] MEDS ORDERED: DICYCLOMINE HCL 10 MG CAPSULE PO PRN (19:48)
[2023-05-13] MEDS ORDERED: MAG HYDROX/AL HYDROX/SIMETH 30 ML UNIT-DOSE CUP PO PRN (19:48)
[2023-05-13] MEDS ORDERED: BENZONATATE 200 MG CAPSULE PO PRN (19:48)
[2023-05-13] MEDS ORDERED: BENZOCAINE/MENTHOL (CHLORASEPTIC ) LOZENGE MM PRN (19:48)
[2023-05-13] MEDS ORDERED: guaiFENesin 600 MG TABLET.ER (FP) PO PRN (19:48)
[2023-05-13] MEDS ORDERED: ONDANSETRON *ODT* 4 MG TABLET SL PRN (19:48)
[2023-05-13] MEDS ORDERED: NICOTINE POLACRILEX 2 MG GUM BUC PRN (19:48)
[2023-05-13] MEDS ORDERED: chlordiazePOXIDE HCL 25 MG CAPSULE PO ONE (19:48)
[2023-05-13] MEDS ORDERED: POLYETHYLENE GLYCOL (HEALTHYLAX) 3350 17 GM PACKET PO PRN (19:48)
[2023-05-13] MEDS ORDERED: chlordiazePOXIDE HCL 25 MG CAPSULE ONE (20:18)
[2023-05-13] MEDS: THIAMINE HCL 100 MG TABLET (FP) PO SCH (22:40)
[2023-05-13] MEDS: MELATONIN 5 MG TABLETS PO SCH (22:40)
[2023-05-13] MEDS: chlordiazePOXIDE HCL 25 MG CAPSULE PO SCH (22:40)
[2023-05-14] MEDS: chlordiazePOXIDE HCL 25 MG CAPSULE PO SCH ×4 (05:56→22:11)
[2023-05-14] MEDS: NICOTINE 21 MG/24 HOURS TOPICAL PATCH TD SCH (10:38)
[2023-05-14] MEDS: PRENATAL VITAMINS W/ FOLIC ACID TABLET (FP) PO SCH (10:39)
[2023-05-14 10:41] LABS: HEMATOCRIT 46.3 % (35.4-49); HEMOGLOBIN 15.3 GM/dL (11.7-16.9); MCH 30.6 pg (25.7-33.7); MCHC 33.1 g/dl (32.0-35.9); MEAN CELL VOLUME 92.4 fl (80-96); PLATELET COUNT 209 10^3/uL (134-434); RBC 5.02 M/mm3 (4.00-5.60); RDW 15.3 % (11.9-15.9); WHITE BLOOD COUNT 6.1 K/mm3 (4.0-10.0)
[2023-05-14 10:46] LABS: POTASSIUM 4.1 mmol/L (3.5-5.1)
[2023-05-14 10:50] LABS: CALCIUM 8.3 mg/dL (8.5-10.1)
[2023-05-14 10:51] LABS: BLOOD UREA NITROGEN 16.6 mg/dL (7-18)
[2023-05-14 10:54] LABS: CREATININE 1.2 mg/dL (0.55-1.3)
[2023-05-14 10:55] LABS: BILIRUBIN,TOTAL 0.4 mg/dL (0.2-1); TOT PROT 5.9 g/dl (6.4-8.2)
[2023-05-14] MEDS: NIFEdipine E.R 60 MG TABLET PO SCH (12:28)
[2023-05-14] MEDS: LISINOPRIL 20 MG TABLET PO SCH (12:30)
[2023-05-14] MEDS: chlordiazePOXIDE HCL 25 MG CAPSULE PO PRN (13:39)
[2023-05-14] MEDS: metFORMIN HCL 500 MG TABLET (FP) PO SCH (17:16)
[2023-05-14] MEDS: ATORVASTATIN CA 20 MG TABLET (FP) PO SCH (22:10)
[2023-05-14] MEDS: THIAMINE HCL 100 MG TABLET (FP) PO SCH (22:10)
[2023-05-14] MEDS: MELATONIN 5 MG TABLETS PO SCH (22:11)
[2023-05-15] MEDS: chlordiazePOXIDE HCL 25 MG CAPSULE PO SCH ×4 (05:14→22:38)
[2023-05-15] MEDS: metFORMIN HCL 500 MG TABLET (FP) PO SCH ×2 (07:00→17:06)
[2023-05-15] MEDS: NICOTINE 21 MG/24 HOURS TOPICAL PATCH TD SCH ×2 (10:50→11:00)
[2023-05-15] MEDS: PRENATAL VITAMINS W/ FOLIC ACID TABLET (FP) PO SCH (10:59)
[2023-05-15] MEDS: LISINOPRIL 20 MG TABLET PO SCH (10:59)
[2023-05-15] MEDS: NIFEdipine E.R 60 MG TABLET PO SCH (11:00)
[2023-05-15] MEDS: hydrOXYzine PAMOATE 25 MG CAPSULE (FP) PO PRN ×2 (11:02→17:09)
[2023-05-15] MEDS: METHOCARBAMOL 500 MG TABLET PO PRN (11:03)
[2023-05-15] MEDS: chlordiazePOXIDE HCL 25 MG CAPSULE PO PRN (19:42)
[2023-05-15] MEDS: THIAMINE HCL 100 MG TABLET (FP) PO SCH (22:37)
[2023-05-15] MEDS: MELATONIN 5 MG TABLETS PO SCH (22:37)
[2023-05-15] MEDS: ATORVASTATIN CA 20 MG TABLET (FP) PO SCH (22:39)
[2023-05-16] MEDS ORDERED: chlordiazePOXIDE HCL 10 MG CAPSULE PO PRN
[2023-05-16] MEDS: chlordiazePOXIDE HCL 10 MG CAPSULE PO SCH ×4 (05:53→22:10)
[2023-05-16] MEDS: metFORMIN HCL 500 MG TABLET (FP) PO SCH ×2 (07:18→17:08)
[2023-05-16] MEDS: METHOCARBAMOL 500 MG TABLET PO PRN (10:28)
[2023-05-16] MEDS: NICOTINE 21 MG/24 HOURS TOPICAL PATCH TD SCH (10:28)
[2023-05-16] MEDS: PRENATAL VITAMINS W/ FOLIC ACID TABLET (FP) PO SCH (10:28)
[2023-05-16] MEDS: LISINOPRIL 20 MG TABLET PO SCH (10:28)
[2023-05-16] MEDS: NIFEdipine E.R 60 MG TABLET PO SCH (10:29)
[2023-05-16] MEDS: GABAPENTIN 300 MG CAPSULE PO SCH ×2 (14:18→22:10)
[2023-05-16] MEDS: hydrOXYzine PAMOATE 25 MG CAPSULE (FP) PO PRN (14:18)
[2023-05-16] MEDS: ATORVASTATIN CA 20 MG TABLET (FP) PO SCH (22:10)
[2023-05-16] MEDS: THIAMINE HCL 100 MG TABLET (FP) PO SCH (22:10)
[2023-05-16] MEDS: MELATONIN 5 MG TABLETS PO SCH (22:10)
[2023-05-17] MEDS: GABAPENTIN 300 MG CAPSULE PO SCH ×3 (05:47→22:35)
[2023-05-17] MEDS: chlordiazePOXIDE HCL 10 MG CAPSULE PO SCH ×2 (05:47→17:16)
[2023-05-17] MEDS: metFORMIN HCL 500 MG TABLET (FP) PO SCH ×2 (06:11→17:15)
[2023-05-17] MEDS: NICOTINE 21 MG/24 HOURS TOPICAL PATCH TD SCH (10:26)
[2023-05-17] MEDS: PRENATAL VITAMINS W/ FOLIC ACID TABLET (FP) PO SCH (10:27)
[2023-05-17] MEDS: LISINOPRIL 20 MG TABLET PO SCH (10:27)
[2023-05-17] MEDS: METHOCARBAMOL 500 MG TABLET PO PRN ×2 (10:28→20:36)
[2023-05-17] MEDS: NIFEdipine E.R 60 MG TABLET PO SCH (10:29)
[2023-05-17] MEDS: hydrOXYzine PAMOATE 25 MG CAPSULE (FP) PO PRN (20:36)
[2023-05-17] MEDS: ATORVASTATIN CA 20 MG TABLET (FP) PO SCH (22:35)
[2023-05-17] MEDS: THIAMINE HCL 100 MG TABLET (FP) PO SCH (22:35)
[2023-05-17] MEDS: MELATONIN 5 MG TABLETS PO SCH (22:36)
[2023-05-18] MEDS ORDERED: chlordiazePOXIDE HCL 10 MG CAPSULE PO ONE (05:00)
[2023-05-18] MEDS: GABAPENTIN 300 MG CAPSULE PO SCH (05:26)
[2023-05-18] MEDS: metFORMIN HCL 500 MG TABLET (FP) PO SCH (06:06)
[2023-05-18 09:14] VITALS: PULSE 84; TEMP 98.4
[2023-05-18] MEDS: PRENATAL VITAMINS W/ FOLIC ACID TABLET (FP) PO SCH (10:20)
[2023-05-18] MEDS: NIFEdipine E.R 60 MG TABLET PO SCH (10:21)
[2023-05-18] MEDS: LISINOPRIL 20 MG TABLET PO SCH (10:21)
[2023-05-18] MEDS: NICOTINE 21 MG/24 HOURS TOPICAL PATCH TD SCH (10:22)
[2023-05-18 10:42] VITALS: BP 118/75; RESP 16
[2023-05-18] MEDS ORDERED: MELATONIN 5 MG TABLETS PO SCH (22:00)
== END 2023-05-18 13:02 | disposition other institution (70) | DRG 774 ==
LOC: YASAS 17:20 → Y6N 21:03
PROVIDERS: ADMIT Allergy & Immunology; ATTEND Allergy & Immunology
PROC: HZ2ZZZZ Detoxification Services for Substance Abuse Treatment (ICD-10-PCS; principal; 2023-05-13)
DX: F10.230 Alcohol dependence with withdrawal, uncomplicated (principal); F14.20 Cocaine dependence, uncomplicated; F17.213 Nicotine dependence, cigarettes, with withdrawal; F39 Unspecified mood [affective] disorder; F19.982 Other psychoactive substance use, unspecified with psychoactive substance-induced sleep disorder; F19.94 Other psychoactive substance use, unspecified with psychoactive substance-induced mood disorder; I10 Essential (primary) hypertension; E11.40 Type 2 diabetes mellitus with diabetic neuropathy, unspecified; E78.5 Hyperlipidemia, unspecified; K21.9 Gastro-esophageal reflux disease without esophagitis; G47.30 Sleep apnea, unspecified; M54.40 Lumbago with sciatica, unspecified side; G89.29 Other chronic pain; Z86.73 Personal history of transient ischemic attack (TIA), and cerebral infarction without residual deficits; Z79.84 Long term (current) use of oral hypoglycemic drugs; Z86.19 Personal history of other infectious and parasitic diseases; Z91.013 Allergy to seafood; Z56.0 Unemployment, unspecified; Z59.00 Homelessness unspecified
CPT/HCPCS: 36415; 80053; 82962; 83036; 85027; 86593; 86780; 87635; 93005; 93010

== ENCOUNTER 2023-05-18 12:39 | Inpatient (IN) | payer BC ==
[2023-05-18] MEDS ORDERED: METHOCARBAMOL 500 MG TABLET PO PRN (13:09)
[2023-05-18] MEDS ORDERED: MAGNESIUM HYDROX 2400MG/30ML ORAL SUSPENSION 30 ML CUP PO PRN (13:09)
[2023-05-18] MEDS ORDERED: MAG HYDROX/AL HYDROX/SIMETH 30 ML UNIT-DOSE CUP PO PRN (13:09)
[2023-05-18] MEDS ORDERED: LOPERAMIDE HCL 2 MG CAPSULE PO PRN (13:09)
[2023-05-18] MEDS ORDERED: guaiFENesin 600 MG TABLET.ER (FP) PO PRN (13:09)
[2023-05-18] MEDS ORDERED: BENZONATATE 200 MG CAPSULE PO PRN (13:09)
[2023-05-18] MEDS ORDERED: NICOTINE POLACRILEX 4 MG GUM BUC PRN (13:09)
[2023-05-18] MEDS ORDERED: AMMONIUM LACTATE 12% LOTION 225 GM BOTTLE TP PRN (13:09)
[2023-05-18] MEDS ORDERED: COLLOIDAL OATMEAL 1 BAR EACH TP PRN (13:09)
[2023-05-18] MEDS ORDERED: BENZOCAINE/MENTHOL (CHLORASEPTIC ) LOZENGE MM PRN (13:09)
[2023-05-18] MEDS ORDERED: NICOTINE 21 MG/24 HOURS TOPICAL PATCH TD PRN (13:09)
[2023-05-18] MEDS ORDERED: POLYETHYLENE GLYCOL (HEALTHYLAX) 3350 17 GM PACKET PO PRN (13:09)
[2023-05-18] MEDS: GABAPENTIN 300 MG CAPSULE PO SCH ×2 (14:34→21:04)
[2023-05-18] MEDS: metFORMIN HCL 500 MG TABLET (FP) PO SCH (16:38)
[2023-05-18] MEDS: INSULIN SLIDING SCALE (NOVOLOG) 1 VIAL SQ SCH ×2 (17:05→17:06)
[2023-05-18] MEDS: MELATONIN 5 MG TABLETS PO SCH (21:04)
[2023-05-18] MEDS: ATORVASTATIN CA 20 MG TABLET (FP) PO SCH (21:04)
[2023-05-18] MEDS: THIAMINE HCL 100 MG TABLET (FP) PO SCH (21:04)
[2023-05-19] MEDS: metFORMIN HCL 500 MG TABLET (FP) PO SCH ×2 (06:00→17:38)
[2023-05-19] MEDS: GABAPENTIN 300 MG CAPSULE PO SCH ×3 (06:07→21:21)
[2023-05-19] MEDS: INSULIN SLIDING SCALE (NOVOLOG) 1 VIAL SQ SCH ×2 (06:08→17:38)
[2023-05-19] MEDS: LISINOPRIL 20 MG TABLET PO SCH (09:53)
[2023-05-19] MEDS: PRENATAL VITAMINS W/ FOLIC ACID TABLET (FP) PO SCH (09:53)
[2023-05-19] MEDS: NIFEdipine E.R 60 MG TABLET PO SCH (09:53)
[2023-05-19] MEDS: IBUPROFEN 600 MG TABLET (FP) PO PRN (09:55)
[2023-05-19] MEDS: hydrOXYzine PAMOATE 25 MG CAPSULE (FP) PO PRN (15:39)
[2023-05-19] MEDS: MELATONIN 5 MG TABLETS PO SCH (21:21)
[2023-05-19] MEDS: ATORVASTATIN CA 20 MG TABLET (FP) PO SCH (21:21)
[2023-05-19] MEDS: THIAMINE HCL 100 MG TABLET (FP) PO SCH (21:21)
[2023-05-20] MEDS: metFORMIN HCL 500 MG TABLET (FP) PO SCH ×2 (06:06→17:31)
[2023-05-20] MEDS: GABAPENTIN 300 MG CAPSULE PO SCH ×3 (06:07→21:04)
[2023-05-20] MEDS: INSULIN SLIDING SCALE (NOVOLOG) 1 VIAL SQ SCH ×2 (06:08→21:05)
[2023-05-20] MEDS: LISINOPRIL 20 MG TABLET PO SCH (09:53)
[2023-05-20] MEDS: PRENATAL VITAMINS W/ FOLIC ACID TABLET (FP) PO SCH (09:53)
[2023-05-20] MEDS: NIFEdipine E.R 60 MG TABLET PO SCH (09:53)
[2023-05-20] MEDS: IBUPROFEN 600 MG TABLET (FP) PO PRN (09:54)
[2023-05-20] MEDS: ACETAMINOPHEN 325 MG TABLET (FP) PO PRN (13:53)
[2023-05-20] MEDS: ATORVASTATIN CA 20 MG TABLET (FP) PO SCH (21:04)
[2023-05-20] MEDS: MELATONIN 5 MG TABLETS PO SCH (21:04)
[2023-05-20] MEDS: THIAMINE HCL 100 MG TABLET (FP) PO SCH (21:05)
[2023-05-21] MEDS: metFORMIN HCL 500 MG TABLET (FP) PO SCH ×2 (06:27→16:35)
[2023-05-21] MEDS: GABAPENTIN 300 MG CAPSULE PO SCH ×3 (06:28→21:19)
[2023-05-21] MEDS: NIFEdipine E.R 60 MG TABLET PO SCH (09:45)
[2023-05-21] MEDS: PRENATAL VITAMINS W/ FOLIC ACID TABLET (FP) PO SCH (09:45)
[2023-05-21] MEDS: LISINOPRIL 20 MG TABLET PO SCH (09:46)
[2023-05-21] MEDS: IBUPROFEN 600 MG TABLET (FP) PO PRN (09:50)
[2023-05-21] MEDS: THIAMINE HCL 100 MG TABLET (FP) PO SCH (21:19)
[2023-05-21] MEDS: MELATONIN 5 MG TABLETS PO SCH (21:20)
[2023-05-21] MEDS: INSULIN SLIDING SCALE (NOVOLOG) 1 VIAL SQ SCH (21:20)
[2023-05-22] MEDS: GABAPENTIN 300 MG CAPSULE PO SCH ×3 (05:59→21:14)
[2023-05-22] MEDS: metFORMIN HCL 500 MG TABLET (FP) PO SCH ×2 (06:00→17:04)
[2023-05-22] MEDS: LISINOPRIL 20 MG TABLET PO SCH (09:52)
[2023-05-22] MEDS: PRENATAL VITAMINS W/ FOLIC ACID TABLET (FP) PO SCH (09:52)
[2023-05-22] MEDS: NIFEdipine E.R 60 MG TABLET PO SCH (09:52)
[2023-05-22] MEDS: INSULIN SLIDING SCALE (NOVOLOG) 1 VIAL SQ SCH (21:13)
[2023-05-22] MEDS: MELATONIN 5 MG TABLETS PO SCH (21:13)
[2023-05-22] MEDS: IBUPROFEN 400 MG TABLET (FP) PO PRN (21:14)
[2023-05-22] MEDS: THIAMINE HCL 100 MG TABLET (FP) PO SCH (21:14)
[2023-05-23] MEDS: GABAPENTIN 300 MG CAPSULE PO SCH ×3 (06:08→21:05)
[2023-05-23] MEDS: metFORMIN HCL 500 MG TABLET (FP) PO SCH ×2 (06:08→16:50)
[2023-05-23] MEDS: PRENATAL VITAMINS W/ FOLIC ACID TABLET (FP) PO SCH (09:58)
[2023-05-23] MEDS: NIFEdipine E.R 60 MG TABLET PO SCH (09:58)
[2023-05-23] MEDS: LISINOPRIL 20 MG TABLET PO SCH (11:44)
[2023-05-23] MEDS: INSULIN SLIDING SCALE (NOVOLOG) 1 VIAL SQ SCH (21:05)
[2023-05-23] MEDS: THIAMINE HCL 100 MG TABLET (FP) PO SCH (21:05)
[2023-05-23] MEDS: MELATONIN 5 MG TABLETS PO SCH (21:05)
[2023-05-23] MEDS: IBUPROFEN 600 MG TABLET (FP) PO PRN (21:06)
[2023-05-24] MEDS: GABAPENTIN 300 MG CAPSULE PO SCH ×3 (06:23→21:23)
[2023-05-24] MEDS: metFORMIN HCL 500 MG TABLET (FP) PO SCH ×2 (06:23→17:52)
[2023-05-24] MEDS: hydrOXYzine PAMOATE 25 MG CAPSULE (FP) PO PRN (06:23)
[2023-05-24] MEDS: LISINOPRIL 20 MG TABLET PO SCH (09:47)
[2023-05-24] MEDS: PRENATAL VITAMINS W/ FOLIC ACID TABLET (FP) PO SCH (09:47)
[2023-05-24] MEDS: NIFEdipine E.R 60 MG TABLET PO SCH (09:47)
[2023-05-24] MEDS: MELATONIN 5 MG TABLETS PO SCH (21:22)
[2023-05-24] MEDS: THIAMINE HCL 100 MG TABLET (FP) PO SCH (21:23)
[2023-05-24] MEDS: INSULIN SLIDING SCALE (NOVOLOG) 1 VIAL SQ SCH (21:26)
[2023-05-25] MEDS: GABAPENTIN 300 MG CAPSULE PO SCH ×3 (06:37→21:01)
[2023-05-25] MEDS: metFORMIN HCL 500 MG TABLET (FP) PO SCH ×2 (06:37→17:03)
[2023-05-25] MEDS: IBUPROFEN 600 MG TABLET (FP) PO PRN (09:46)
[2023-05-25] MEDS: NIFEdipine E.R 60 MG TABLET PO SCH (09:46)
[2023-05-25] MEDS: PRENATAL VITAMINS W/ FOLIC ACID TABLET (FP) PO SCH (09:46)
[2023-05-25] MEDS: LISINOPRIL 20 MG TABLET PO SCH (11:51)
[2023-05-25] MEDS: ACETAMINOPHEN 325 MG TABLET (FP) PO PRN (13:11)
[2023-05-25] MEDS: cloNIDine HCL 0.1 MG TABLET PO SCH (21:01)
[2023-05-25] MEDS: THIAMINE HCL 100 MG TABLET (FP) PO SCH (21:01)
[2023-05-25] MEDS: METHYL SALICYLATE/MENTHOL OINT 30 GM TUBE TP SCH (21:01)
[2023-05-25] MEDS: INSULIN SLIDING SCALE (NOVOLOG) 1 VIAL SQ SCH (21:02)
[2023-05-25] MEDS: MELATONIN 5 MG TABLETS PO SCH (21:02)
[2023-05-26] MEDS: metFORMIN HCL 500 MG TABLET (FP) PO SCH ×2 (06:52→17:12)
[2023-05-26] MEDS: GABAPENTIN 300 MG CAPSULE PO SCH ×3 (06:52→21:16)
[2023-05-26] MEDS: NIFEdipine E.R 60 MG TABLET PO SCH (09:38)
[2023-05-26] MEDS: LIDOCAINE 5% TOPICAL PATCH TP SCH (09:38)
[2023-05-26] MEDS: PRENATAL VITAMINS W/ FOLIC ACID TABLET (FP) PO SCH (09:38)
[2023-05-26] MEDS: LISINOPRIL 20 MG TABLET PO SCH (09:38)
[2023-05-26] MEDS: METHYL SALICYLATE/MENTHOL OINT 30 GM TUBE TP SCH ×2 (09:39→21:34)
[2023-05-26] MEDS: cloNIDine HCL 0.1 MG TABLET PO SCH ×2 (09:39→21:16)
[2023-05-26] MEDS: IBUPROFEN 600 MG TABLET (FP) PO PRN (14:30)
[2023-05-26] MEDS: hydrOXYzine PAMOATE 25 MG CAPSULE (FP) PO PRN (17:15)
[2023-05-26] MEDS: MELATONIN 5 MG TABLETS PO SCH (21:16)
[2023-05-26] MEDS: THIAMINE HCL 100 MG TABLET (FP) PO SCH (21:16)
[2023-05-26] MEDS: INSULIN SLIDING SCALE (NOVOLOG) 1 VIAL SQ SCH (21:19)
[2023-05-26] MEDS: LIDOCAINE PATCH REMOVAL MC SCH (21:34)
[2023-05-27] MEDS: GABAPENTIN 300 MG CAPSULE PO SCH ×3 (06:08→21:10)
[2023-05-27] MEDS: metFORMIN HCL 500 MG TABLET (FP) PO SCH ×2 (06:08→16:46)
[2023-05-27] MEDS: PRENATAL VITAMINS W/ FOLIC ACID TABLET (FP) PO SCH (09:53)
[2023-05-27] MEDS: METHYL SALICYLATE/MENTHOL OINT 30 GM TUBE TP SCH ×2 (09:53→21:11)
[2023-05-27] MEDS: NIFEdipine E.R 60 MG TABLET PO SCH (09:53)
[2023-05-27] MEDS: IBUPROFEN 600 MG TABLET (FP) PO PRN (09:53)
[2023-05-27] MEDS: LIDOCAINE 5% TOPICAL PATCH TP SCH (09:54)
[2023-05-27] MEDS: LISINOPRIL 20 MG TABLET PO SCH (09:54)
[2023-05-27] MEDS: hydrOXYzine PAMOATE 25 MG CAPSULE (FP) PO PRN ×2 (09:57→16:45)
[2023-05-27] MEDS: cloNIDine HCL 0.1 MG TABLET PO SCH ×2 (09:57→21:09)
[2023-05-27] MEDS: ACETAMINOPHEN 325 MG TABLET (FP) PO PRN (13:10)
[2023-05-27] MEDS: IBUPROFEN 400 MG TABLET (FP) PO PRN (16:45)
[2023-05-27] MEDS: THIAMINE HCL 100 MG TABLET (FP) PO SCH (21:10)
[2023-05-27] MEDS: MELATONIN 5 MG TABLETS PO SCH (21:10)
[2023-05-27] MEDS: INSULIN SLIDING SCALE (NOVOLOG) 1 VIAL SQ SCH (21:11)
[2023-05-27] MEDS: LIDOCAINE PATCH REMOVAL MC SCH (21:41)
[2023-05-28] MEDS: metFORMIN HCL 500 MG TABLET (FP) PO SCH ×2 (06:23→16:58)
[2023-05-28] MEDS: GABAPENTIN 300 MG CAPSULE PO SCH ×3 (06:23→21:11)
[2023-05-28] MEDS: IBUPROFEN 400 MG TABLET (FP) PO PRN (06:25)
[2023-05-28] MEDS: hydrOXYzine PAMOATE 25 MG CAPSULE (FP) PO PRN ×2 (06:25→16:59)
[2023-05-28 07:05] VITALS: RESP 18
[2023-05-28] MEDS: cloNIDine HCL 0.1 MG TABLET PO SCH ×2 (09:56→21:11)
[2023-05-28] MEDS: LISINOPRIL 20 MG TABLET PO SCH (09:57)
[2023-05-28] MEDS: NIFEdipine E.R 60 MG TABLET PO SCH (09:57)
[2023-05-28] MEDS: LIDOCAINE 5% TOPICAL PATCH TP SCH (09:58)
[2023-05-28] MEDS: PRENATAL VITAMINS W/ FOLIC ACID TABLET (FP) PO SCH (09:59)
[2023-05-28] MEDS: METHYL SALICYLATE/MENTHOL OINT 30 GM TUBE TP SCH ×2 (09:59→21:37)
[2023-05-28] MEDS ORDERED: INSULIN (NOVOLOG) ASPART 100 UNITS/ML 10ML VIAL ONE (20:58)
[2023-05-28] MEDS: THIAMINE HCL 100 MG TABLET (FP) PO SCH (21:11)
[2023-05-28] MEDS: MELATONIN 5 MG TABLETS PO SCH (21:12)
[2023-05-28] MEDS: LIDOCAINE PATCH REMOVAL MC SCH (21:12)
[2023-05-28] MEDS: INSULIN SLIDING SCALE (NOVOLOG) 1 VIAL SQ SCH (21:12)
[2023-05-29] MEDS: metFORMIN HCL 500 MG TABLET (FP) PO SCH ×2 (06:19→17:31)
[2023-05-29] MEDS: GABAPENTIN 300 MG CAPSULE PO SCH ×3 (06:19→21:21)
[2023-05-29] MEDS: PRENATAL VITAMINS W/ FOLIC ACID TABLET (FP) PO SCH (09:51)
[2023-05-29] MEDS: NIFEdipine E.R 60 MG TABLET PO SCH (09:51)
[2023-05-29] MEDS: cloNIDine HCL 0.1 MG TABLET PO SCH ×2 (09:52→21:21)
[2023-05-29] MEDS: LISINOPRIL 20 MG TABLET PO SCH (09:52)
[2023-05-29] MEDS: METHYL SALICYLATE/MENTHOL OINT 30 GM TUBE TP SCH ×2 (09:52→21:42)
[2023-05-29] MEDS: LIDOCAINE 5% TOPICAL PATCH TP SCH (09:53)
[2023-05-29] MEDS: THIAMINE HCL 100 MG TABLET (FP) PO SCH (21:21)
[2023-05-29] MEDS: INSULIN SLIDING SCALE (NOVOLOG) 1 VIAL SQ SCH (21:21)
[2023-05-29] MEDS: MELATONIN 5 MG TABLETS PO SCH (21:21)
[2023-05-29] MEDS: LIDOCAINE PATCH REMOVAL MC SCH (21:42)
[2023-05-30] MEDS: GABAPENTIN 300 MG CAPSULE PO SCH ×3 (06:09→21:10)
[2023-05-30] MEDS: metFORMIN HCL 500 MG TABLET (FP) PO SCH ×2 (06:09→17:04)
[2023-05-30] MEDS: METHYL SALICYLATE/MENTHOL OINT 30 GM TUBE TP SCH ×2 (09:37→21:33)
[2023-05-30] MEDS: PRENATAL VITAMINS W/ FOLIC ACID TABLET (FP) PO SCH (09:37)
[2023-05-30] MEDS: LIDOCAINE 5% TOPICAL PATCH TP SCH (09:37)
[2023-05-30] MEDS: cloNIDine HCL 0.1 MG TABLET PO SCH ×2 (09:37→21:10)
[2023-05-30] MEDS: NIFEdipine E.R 60 MG TABLET PO SCH (09:37)
[2023-05-30] MEDS: LISINOPRIL 20 MG TABLET PO SCH (09:37)
[2023-05-30] MEDS: hydrOXYzine PAMOATE 25 MG CAPSULE (FP) PO PRN (15:45)
[2023-05-30] MEDS: IBUPROFEN 600 MG TABLET (FP) PO PRN (15:45)
[2023-05-30] MEDS: MELATONIN 5 MG TABLETS PO SCH (21:10)
[2023-05-30] MEDS: INSULIN SLIDING SCALE (NOVOLOG) 1 VIAL SQ SCH (21:10)
[2023-05-30] MEDS: THIAMINE HCL 100 MG TABLET (FP) PO SCH (21:10)
[2023-05-30] MEDS: LIDOCAINE PATCH REMOVAL MC SCH (21:11)
[2023-05-31] MEDS: GABAPENTIN 300 MG CAPSULE PO SCH ×3 (06:30→21:09)
[2023-05-31] MEDS: metFORMIN HCL 500 MG TABLET (FP) PO SCH ×2 (06:30→17:42)
[2023-05-31] MEDS: PRENATAL VITAMINS W/ FOLIC ACID TABLET (FP) PO SCH (09:30)
[2023-05-31] MEDS: METHYL SALICYLATE/MENTHOL OINT 30 GM TUBE TP SCH ×2 (09:30→21:11)
[2023-05-31] MEDS: LISINOPRIL 20 MG TABLET PO SCH (09:31)
[2023-05-31] MEDS: LIDOCAINE 5% TOPICAL PATCH TP SCH (09:31)
[2023-05-31] MEDS: cloNIDine HCL 0.1 MG TABLET PO SCH ×2 (09:31→21:09)
[2023-05-31] MEDS: NIFEdipine E.R 60 MG TABLET PO SCH (09:31)
[2023-05-31] MEDS: hydrOXYzine PAMOATE 25 MG CAPSULE (FP) PO PRN ×2 (09:32→21:10)
[2023-05-31] MEDS: IBUPROFEN 600 MG TABLET (FP) PO PRN (13:53)
[2023-05-31] MEDS ORDERED: INSULIN (NOVOLOG) ASPART 100 UNITS/ML 10ML VIAL ONE (19:30)
[2023-05-31] MEDS: THIAMINE HCL 100 MG TABLET (FP) PO SCH (21:09)
[2023-05-31] MEDS: LIDOCAINE PATCH REMOVAL MC SCH (21:11)
[2023-05-31] MEDS: MELATONIN 5 MG TABLETS PO SCH (21:11)
[2023-05-31] MEDS: INSULIN SLIDING SCALE (NOVOLOG) 1 VIAL SQ SCH (21:12)
[2023-06-01] MEDS: GABAPENTIN 300 MG CAPSULE PO SCH ×3 (06:10→21:01)
[2023-06-01] MEDS: metFORMIN HCL 500 MG TABLET (FP) PO SCH ×2 (06:10→16:39)
[2023-06-01] MEDS: PRENATAL VITAMINS W/ FOLIC ACID TABLET (FP) PO SCH (09:31)
[2023-06-01] MEDS: LIDOCAINE 5% TOPICAL PATCH TP SCH (09:31)
[2023-06-01] MEDS: METHYL SALICYLATE/MENTHOL OINT 30 GM TUBE TP SCH ×2 (09:32→21:02)
[2023-06-01] MEDS: NIFEdipine E.R 60 MG TABLET PO SCH (09:32)
[2023-06-01] MEDS: cloNIDine HCL 0.1 MG TABLET PO SCH ×2 (09:32→21:00)
[2023-06-01] MEDS: LISINOPRIL 20 MG TABLET PO SCH (09:32)
[2023-06-01] MEDS: hydrOXYzine PAMOATE 25 MG CAPSULE (FP) PO PRN (09:33)
[2023-06-01] MEDS: IBUPROFEN 600 MG TABLET (FP) PO PRN (14:14)
[2023-06-01] MEDS: THIAMINE HCL 100 MG TABLET (FP) PO SCH (21:01)
[2023-06-01] MEDS: LIDOCAINE PATCH REMOVAL MC SCH (21:02)
[2023-06-01] MEDS: INSULIN SLIDING SCALE (NOVOLOG) 1 VIAL SQ SCH (21:40)
[2023-06-01] MEDS: MELATONIN 5 MG TABLETS PO SCH (21:40)
[2023-06-02] MEDS: metFORMIN HCL 500 MG TABLET (FP) PO SCH ×2 (06:33→17:17)
[2023-06-02] MEDS: GABAPENTIN 300 MG CAPSULE PO SCH ×3 (06:33→21:08)
[2023-06-02 07:10] VITALS: TEMP 97.5
[2023-06-02] MEDS: LIDOCAINE 5% TOPICAL PATCH TP SCH (09:29)
[2023-06-02] MEDS: PRENATAL VITAMINS W/ FOLIC ACID TABLET (FP) PO SCH (09:29)
[2023-06-02] MEDS: LISINOPRIL 20 MG TABLET PO SCH (09:30)
[2023-06-02] MEDS: METHYL SALICYLATE/MENTHOL OINT 30 GM TUBE TP SCH ×2 (09:30→21:09)
[2023-06-02] MEDS: cloNIDine HCL 0.1 MG TABLET PO SCH ×2 (09:30→21:09)
[2023-06-02] MEDS: NIFEdipine E.R 60 MG TABLET PO SCH (09:30)
[2023-06-02] MEDS: IBUPROFEN 600 MG TABLET (FP) PO PRN (11:46)
[2023-06-02] MEDS: THIAMINE HCL 100 MG TABLET (FP) PO SCH (21:08)
[2023-06-02] MEDS: MELATONIN 5 MG TABLETS PO SCH (21:09)
[2023-06-02] MEDS: INSULIN SLIDING SCALE (NOVOLOG) 1 VIAL SQ SCH (21:10)
[2023-06-02] MEDS: LIDOCAINE PATCH REMOVAL MC SCH (21:47)
[2023-06-03] MEDS: GABAPENTIN 300 MG CAPSULE PO SCH (06:45)
[2023-06-03] MEDS: metFORMIN HCL 500 MG TABLET (FP) PO SCH (06:45)
[2023-06-03 07:00] VITALS: BP 135/88; PULSE 93
== END 2023-06-03 08:30 | disposition home or self-care (01) | DRG 772 ==
LOC: YASAS 12:39 → Y5N 12:48
PROVIDERS: ADMIT Allergy & Immunology; ATTEND Psychiatry & Neurology Pain Medicine
PROC: HZ42ZZZ Group Counseling for Substance Abuse Treatment, Cognitive-Behavioral (ICD-10-PCS; principal; 2023-05-18)
DX: F10.20 Alcohol dependence, uncomplicated (principal); F14.20 Cocaine dependence, uncomplicated; F17.210 Nicotine dependence, cigarettes, uncomplicated; F39 Unspecified mood [affective] disorder; E78.5 Hyperlipidemia, unspecified; G47.30 Sleep apnea, unspecified; I10 Essential (primary) hypertension; E11.42 Type 2 diabetes mellitus with diabetic polyneuropathy; Z79.84 Long term (current) use of oral hypoglycemic drugs; M54.40 Lumbago with sciatica, unspecified side; G89.29 Other chronic pain; Z59.00 Homelessness unspecified
CPT/HCPCS: 36415; 82465; 82962

== ENCOUNTER 2024-01-04 09:43 | Inpatient (IN) | payer BC ==
[2024-01-04 10:17] VITALS: BMI 27.9
[2024-01-04] MEDS ORDERED: guaiFENesin 600 MG TABLET.ER (FP) PO PRN (10:38)
[2024-01-04] MEDS ORDERED: DICYCLOMINE HCL 10 MG CAPSULE PO PRN (10:38)
[2024-01-04] MEDS ORDERED: IBUPROFEN 400 MG TABLET (FP) PO PRN (10:38)
[2024-01-04] MEDS ORDERED: MAG HYDROX/AL HYDROX/SIMETH 30 ML UNIT-DOSE CUP PO PRN (10:38)
[2024-01-04] MEDS ORDERED: MAGNESIUM HYDROX 2400MG/30ML ORAL SUSPENSION 30 ML CUP PO PRN (10:38)
[2024-01-04] MEDS ORDERED: NALOXONE HCL 0.4 MG/ML VIAL IM PRN (10:38)
[2024-01-04] MEDS ORDERED: BENZOCAINE/MENTHOL (CHLORASEPTIC ) LOZENGE MM PRN (10:38)
[2024-01-04] MEDS ORDERED: LOPERAMIDE HCL 2 MG CAPSULE PO PRN (10:38)
[2024-01-04] MEDS ORDERED: BENZONATATE 200 MG CAPSULE PO PRN (10:38)
[2024-01-04] MEDS ORDERED: BISMUTH SUBSALICYLATE 524 MG/30 ML PO PRN (10:38)
[2024-01-04] MEDS ORDERED: POLYETHYLENE GLYCOL (HEALTHYLAX) 3350 17 GM PACKET PO PRN (10:38)
[2024-01-04] MEDS ORDERED: NALOXONE HCL (KLOXXADO) 8 MG SPRAY NS PRN (10:38)
[2024-01-04] MEDS: PRENATAL VITAMINS W/ FOLIC ACID TABLET (FP) PO SCH (10:55)
[2024-01-04] MEDS: ONDANSETRON *ODT* 4 MG TABLET SL PRN (10:56)
[2024-01-04] MEDS: NICOTINE 21 MG/24 HOURS TOPICAL PATCH TD SCH (10:57)
[2024-01-04] MEDS ORDERED: chlordiazePOXIDE HCL 25 MG CAPSULE ONE (11:08)
[2024-01-04] MEDS: chlordiazePOXIDE HCL 25 MG CAPSULE PO SCH (11:11)
[2024-01-04] MEDS: PROMETHAZINE HCL PO SCH (12:56)
[2024-01-04] MEDS: PANTOPRAZOLE 20 MG TABLET PO SCH (13:29)
[2024-01-04] MEDS ORDERED: OXYCODONE PO SCH (14:00)
[2024-01-04] MEDS: METHOCARBAMOL 500 MG TABLET PO PRN (14:13)
[2024-01-04] MEDS: chlordiazePOXIDE HCL 25 MG CAPSULE PO PRN (14:13)
[2024-01-04] MEDS: hydrOXYzine PAMOATE 25 MG CAPSULE (FP) PO PRN (14:13)
[2024-01-04] MEDS: LIDOCAINE 5% TOPICAL PATCH TP SCH (14:18)
[2024-01-04] MEDS: metFORMIN HCL 500 MG TABLET (FP) PO SCH (16:54)
[2024-01-04] MEDS: IBUPROFEN 600 MG TABLET (FP) PO PRN (16:54)
[2024-01-04] MEDS ORDERED: IBUPROFEN 600 MG TABLET (FP) PO SCH (22:00)
[2024-01-04] MEDS ORDERED: LIDOCAINE PATCH REMOVAL MC SCH (22:00)
[2024-01-04] MEDS: ATORVASTATIN CA 20 MG TABLET (FP) PO SCH (23:47)
[2024-01-04] MEDS: THIAMINE HCL 100 MG TABLET (FP) PO SCH (23:47)
[2024-01-04] MEDS: MELATONIN 5 MG TABLETS PO SCH (23:47)
[2024-01-04] MEDS: LIDOCAINE PATCH REMOVAL MC SCH (23:47)
[2024-01-05] MEDS: LISINOPRIL 20 MG TABLET PO SCH (10:28)
[2024-01-05] MEDS: NIFEdipine E.R 60 MG TABLET PO SCH (10:28)
[2024-01-05 12:21] LABS: HEMATOCRIT 43.3 % (35.4-49); MCH 30.6 pg (25.7-33.7); MCHC 34.6 g/dl (32.0-35.9); MEAN CELL VOLUME 88.5 fl (80-96); MEAN PLT VOLUME 10.9 fl (7.5-11.1); PLATELET COUNT 230 10^3/uL (134-434); RDW 13.3 % (11.9-15.9); WHITE BLOOD COUNT 11.1 K/mm3 (4.0-10.0)
[2024-01-05 14:47] LABS: POTASSIUM 3.6 mmol/L (3.5-5.1)
[2024-01-05 14:54] LABS: ALBUMIN 3.9 g/dl (3.4-5.0); BLOOD UREA NITROGEN 18.6 mg/dL (7-18); CALCIUM 8.8 mg/dL (8.5-10.1)
[2024-01-05 14:56] LABS: CREATININE 1.2 mg/dL (0.55-1.3)
[2024-01-05 14:58] LABS: BILIRUBIN,TOTAL 0.6 mg/dL (0.2-1); TOT PROT 7.1 g/dl (6.4-8.2)
[2024-01-06] MEDS: chlordiazePOXIDE HCL 25 MG CAPSULE PO SCH ×2 (05:31→16:46)
[2024-01-06] MEDS ORDERED: chlordiazePOXIDE HCL 25 MG CAPSULE PO PRN (14:32)
[2024-01-07] MEDS ORDERED: chlordiazePOXIDE HCL 10 MG CAPSULE PO PRN
[2024-01-07] MEDS: chlordiazePOXIDE HCL 10 MG CAPSULE PO PRN (13:14)
[2024-01-07] MEDS: cloNIDine HCL 0.1 MG TABLET PO PRN (19:59)
[2024-01-08] MEDS: chlordiazePOXIDE HCL 25 MG CAPSULE PO SCH (05:05)
[2024-01-08] MEDS: FLUTICASONE PROP 0.05% 16 GM NASAL SPRAY NS SCH (10:45)
[2024-01-08] MEDS: INSULIN (NOVOLOG) ASPART 100 UNITS/ML 10ML VIAL SQ ONE (19:31)
[2024-01-09] MEDS ORDERED: chlordiazePOXIDE HCL 10 MG CAPSULE PO ONE (05:00)
[2024-01-09] MEDS: chlordiazePOXIDE HCL 10 MG CAPSULE PO SCH (05:45)
[2024-01-10] MEDS: chlordiazePOXIDE HCL 10 MG CAPSULE PO SCH (05:40)
[2024-01-10] MEDS: ACETAMINOPHEN 325 MG TABLET (FP) PO PRN (07:03)
[2024-01-10 09:29] VITALS: BP 125/75; PULSE 85; RESP 18; TEMP 98.1
== END 2024-01-10 12:00 | disposition other institution (70) | DRG 774 ==
LOC: YASAS 09:43 → Y6N 11:12
PROVIDERS: ADMIT Allergy & Immunology; ATTEND Surgery
PROC: HZ2ZZZZ Detoxification Services for Substance Abuse Treatment (ICD-10-PCS; principal; 2024-01-04)
DX: F10.230 Alcohol dependence with withdrawal, uncomplicated (principal); F14.20 Cocaine dependence, uncomplicated; F17.213 Nicotine dependence, cigarettes, with withdrawal; E78.00 Pure hypercholesterolemia, unspecified; I10 Essential (primary) hypertension; E11.42 Type 2 diabetes mellitus with diabetic polyneuropathy; Z79.84 Long term (current) use of oral hypoglycemic drugs; M54.50 Low back pain, unspecified; G89.29 Other chronic pain; Z86.19 Personal history of other infectious and parasitic diseases; Z99.89 Dependence on other enabling machines and devices; Z59.00 Homelessness unspecified
CPT/HCPCS: 36415; 80053; 80305; 80307; 82962; 85027; 86593; 86780; 87811; 93005; 93010; Q0162

== ENCOUNTER 2024-01-10 12:08 | Inpatient (IN) | payer BC ==
[2024-01-10] MEDS ORDERED: BENZOCAINE/MENTHOL (CHLORASEPTIC ) LOZENGE MM PRN (13:43)
[2024-01-10] MEDS ORDERED: LOPERAMIDE HCL 2 MG CAPSULE PO PRN (13:43)
[2024-01-10] MEDS ORDERED: MAGNESIUM HYDROX 2400MG/30ML ORAL SUSPENSION 30 ML CUP PO PRN (13:43)
[2024-01-10] MEDS ORDERED: POLYETHYLENE GLYCOL (HEALTHYLAX) 3350 17 GM PACKET PO PRN (13:43)
[2024-01-10] MEDS ORDERED: NALOXONE HCL 0.4 MG/ML VIAL IVPUSH PRN (13:43)
[2024-01-10] MEDS ORDERED: NALOXONE (NYS OPIOID OVERDOSE PROGRAM) 4 MG/0.1 ML SPRAY NS PRN (13:43)
[2024-01-10] MEDS ORDERED: guaiFENesin 600 MG TABLET.ER (FP) PO PRN (13:43)
[2024-01-10] MEDS ORDERED: NICOTINE POLACRILEX 4 MG GUM BUC PRN (13:43)
[2024-01-10] MEDS ORDERED: BENZONATATE 200 MG CAPSULE PO PRN (13:43)
[2024-01-10] MEDS ORDERED: MAG HYDROX/AL HYDROX/SIMETH 30 ML UNIT-DOSE CUP PO PRN (13:43)
[2024-01-10] MEDS ORDERED: NICOTINE POLACRILEX 4 MG LOZENGE BC PRN (13:43)
[2024-01-10] MEDS: IBUPROFEN 600 MG TABLET (FP) PO PRN (15:00)
[2024-01-10] MEDS ORDERED: INSULIN (NOVOLOG) ASPART 100 UNITS/ML 10ML VIAL ONE (16:24)
[2024-01-10] MEDS: metFORMIN HCL 500 MG TABLET (FP) PO SCH (16:26)
[2024-01-10] MEDS: METHOCARBAMOL 500 MG TABLET PO PRN (16:26)
[2024-01-10] MEDS: INSULIN ASPART SLIDING SCALE (NOVOLOG) 1 VIAL SQ SCH (16:27)
[2024-01-10] MEDS: FLUTICASONE PROP 0.05% 16 GM NASAL SPRAY NS PRN (21:10)
[2024-01-10] MEDS: MELATONIN 5 MG TABLETS PO SCH (21:10)
[2024-01-10] MEDS: THIAMINE 100 MG TABLET PO SCH (21:10)
[2024-01-10] MEDS: ATORVASTATIN CA 20 MG TABLET (FP) PO SCH (21:11)
[2024-01-11] MEDS: NICOTINE 14 MG/24 HOURS TOPICAL PATCH TD SCH (09:50)
[2024-01-11] MEDS: PANTOPRAZOLE 20 MG TABLET PO SCH (09:51)
[2024-01-11] MEDS: LISINOPRIL 20 MG TABLET PO SCH (09:51)
[2024-01-11] MEDS: PRENATAL VITAMINS W/ FOLIC ACID TABLET (FP) PO SCH (09:51)
[2024-01-11] MEDS: NIFEdipine E.R 60 MG TABLET PO SCH (09:51)
[2024-01-11] MEDS: GABAPENTIN 300 MG CAPSULE PO SCH (13:04)
[2024-01-11] MEDS: LIDOCAINE 5% TOPICAL PATCH TP SCH (16:40)
[2024-01-11] MEDS: chlordiazePOXIDE HCL 10 MG CAPSULE PO PRN (16:57)
[2024-01-11] MEDS: LIDOCAINE PATCH REMOVAL MC SCH (21:04)
[2024-01-12] MEDS ORDERED: NICOTINE 14 MG/24 HOURS TOPICAL PATCH TD PRN (13:08)
[2024-01-13] MEDS: CYANOCOBALAMIN (VITAMIN B-12) 100 MCG TABLET PO SCH (16:34)
[2024-01-14] MEDS ORDERED: FUROSEMIDE 20 MG TABLET (FP) PO SCH (13:30)
[2024-01-14] MEDS: ACETAMINOPHEN 325 MG TABLET (FP) PO PRN (15:13)
[2024-01-14] MEDS: GABAPENTIN 400 MG CAPSULE PO SCH (21:19)
[2024-01-15] MEDS: valACYclovir HCL 500 MG TABLET (FP) PO SCH ×2 (11:28→21:10)
[2024-01-15] MEDS: CALAMINE 8% TOPICAL LOTION 177 ML BOTTLE TP SCH (11:28)
[2024-01-15] MEDS: METHOCARBAMOL 750 MG TABLET PO PRN (16:33)
[2024-01-16] MEDS ORDERED: INSULIN (NOVOLOG) ASPART 100 UNITS/ML 10ML VIAL ONE (06:51)
[2024-01-16] MEDS: IBUPROFEN 400 MG TABLET (FP) PO PRN (13:49)
[2024-01-18] MEDS: hydrOXYzine PAMOATE 25 MG CAPSULE (FP) PO PRN (21:17)
[2024-01-19] MEDS: GABAPENTIN 300 MG CAPSULE PO SCH (21:14)
[2024-01-24 07:06] VITALS: RESP 18; TEMP 97.2
[2024-01-25 06:41] VITALS: BP 126/85; PULSE 98
== END 2024-01-25 07:00 | disposition home or self-care (01) | DRG 772 ==
LOC: YASAS 12:08 → Y3E 12:11
PROVIDERS: ADMIT Allergy & Immunology; ATTEND Psychiatry & Neurology Pain Medicine
PROC: HZ42ZZZ Group Counseling for Substance Abuse Treatment, Cognitive-Behavioral (ICD-10-PCS; principal; 2024-01-10)
DX: F10.20 Alcohol dependence, uncomplicated (principal); F14.20 Cocaine dependence, uncomplicated; F17.210 Nicotine dependence, cigarettes, uncomplicated; F19.24 Other psychoactive substance dependence with psychoactive substance-induced mood disorder; B02.9 Zoster without complications; G62.9 Polyneuropathy, unspecified; G47.00 Insomnia, unspecified; I10 Essential (primary) hypertension; E11.9 Type 2 diabetes mellitus without complications; Z79.84 Long term (current) use of oral hypoglycemic drugs; K21.9 Gastro-esophageal reflux disease without esophagitis; M54.40 Lumbago with sciatica, unspecified side
CPT/HCPCS: 36415; 82140; 82962; 86803

== ENCOUNTER 2024-05-18 09:17 | Inpatient (IN) | payer BC ==
[2024-05-18 10:22] VITALS: BMI 35.1
[2024-05-18] MEDS ORDERED: MAGNESIUM HYDROX 2400MG/30ML ORAL SUSPENSION 30 ML CUP PO PRN (10:34)
[2024-05-18] MEDS ORDERED: BENZONATATE 200 MG CAPSULE PO PRN (10:34)
[2024-05-18] MEDS ORDERED: IBUPROFEN 400 MG TABLET (FP) PO PRN (10:34)
[2024-05-18] MEDS ORDERED: ONDANSETRON *ODT* 4 MG TABLET SL PRN (10:34)
[2024-05-18] MEDS ORDERED: DICYCLOMINE HCL 10 MG CAPSULE PO PRN (10:34)
[2024-05-18] MEDS ORDERED: guaiFENesin 600 MG TABLET.ER (FP) PO PRN (10:34)
[2024-05-18] MEDS ORDERED: LOPERAMIDE HCL 2 MG CAPSULE PO PRN (10:34)
[2024-05-18] MEDS ORDERED: BENZOCAINE/MENTHOL (CHLORASEPTIC ) LOZENGE MM PRN (10:34)
[2024-05-18] MEDS ORDERED: POLYETHYLENE GLYCOL (HEALTHYLAX) 3350 17 GM PACKET PO PRN (10:34)
[2024-05-18] MEDS ORDERED: NALOXONE (NARCAN) HCL 4 MG/0.1 ML SPRAY NS PRN (10:34)
[2024-05-18] MEDS ORDERED: ACETAMINOPHEN 325 MG TABLET (FP) PO PRN (10:34)
[2024-05-18] MEDS ORDERED: NALOXONE HCL 0.4 MG/ML VIAL IM PRN (10:34)
[2024-05-18] MEDS ORDERED: BISMUTH SUBSALICYLATE 524 MG/30 ML PO PRN (10:34)
[2024-05-18] MEDS ORDERED: FLUTICASONE PROP 0.05% 16 GM NASAL SPRAY NS PRN (10:35)
[2024-05-18] MEDS ORDERED: ALBUTEROL SO4 HFA INHALER IH PRN (10:40)
[2024-05-18] MEDS ORDERED: LISINOPRIL 10 MG TABLET ONE ×2 (11:27→11:29)
[2024-05-18] MEDS: LISINOPRIL 20 MG TABLET PO SCH (12:14)
[2024-05-18] MEDS: NIFEdipine E.R 60 MG TABLET PO SCH (12:14)
[2024-05-18] MEDS: GABAPENTIN 300 MG CAPSULE PO SCH (13:09)
[2024-05-18] MEDS: diazePAM 5 MG TABLET PO PRN (13:17)
[2024-05-18] MEDS ORDERED: GABAPENTIN 300 MG CAPSULE PO SCH (14:00)
[2024-05-18] MEDS: diazePAM 5 MG TABLET PO SCH (17:27)
[2024-05-18] MEDS: metFORMIN HCL 500 MG TABLET (FP) PO SCH (17:28)
[2024-05-18] MEDS: ATORVASTATIN CA 20 MG TABLET (FP) PO SCH (23:53)
[2024-05-18] MEDS: MELATONIN 5 MG TABLETS PO SCH (23:54)
[2024-05-18] MEDS: THIAMINE 100 MG TABLET PO SCH (23:54)
[2024-05-19] MEDS: IBUPROFEN 600 MG TABLET (FP) PO PRN (06:38)
[2024-05-19] MEDS: METHOCARBAMOL 500 MG TABLET PO PRN (06:38)
[2024-05-19 10:23] LABS: HEMATOCRIT 43.2 % (35.4-49); HEMOGLOBIN 14.9 GM/dL (11.7-16.9); MCH 30.2 pg (25.7-33.7); MCHC 34.4 g/dl (32.0-35.9); MEAN CELL VOLUME 87.8 fl (80-96); MEAN PLT VOLUME 10.2 fl (7.5-11.1); PLATELET COUNT 237 10^3/uL (134-434); RBC 4.92 M/mm3 (4.00-5.60); RDW 14.1 % (11.9-15.9); WHITE BLOOD COUNT 8.9 K/mm3 (4.0-10.0)
[2024-05-19] MEDS: PRENATAL VITAMINS W/ FOLIC ACID TABLET (FP) PO SCH (10:39)
[2024-05-19] MEDS: PANTOPRAZOLE 20 MG TABLET PO SCH (10:39)
[2024-05-19] MEDS: CYANOCOBALAMIN (VITAMIN B-12) 100 MCG TABLET PO SCH (10:39)
[2024-05-19 10:45] LABS: POTASSIUM 3.3 mmol/L (3.5-5.1)
[2024-05-19 11:00] LABS: ALBUMIN 3.8 g/dl (3.4-5.0); BLOOD UREA NITROGEN 12.9 mg/dL (7-18); CALCIUM 9.3 mg/dL (8.5-10.1)
[2024-05-19 11:03] LABS: CREATININE 1.1 mg/dL (0.55-1.3)
[2024-05-19 11:05] LABS: BILIRUBIN,TOTAL 0.5 mg/dL (0.2-1)
[2024-05-19] MEDS ORDERED: chlordiazePOXIDE HCL 25 MG CAPSULE PO PRN (11:25)
[2024-05-19] MEDS: POTASSIUM CHLORIDE ORAL LIQUID 20 MEQ/15 ML PO ONE (12:10)
[2024-05-19] MEDS: chlordiazePOXIDE HCL 25 MG CAPSULE PO SCH (12:10)
[2024-05-19] MEDS: MAG HYDROX/AL HYDROX/SIMETH 30 ML UNIT-DOSE CUP PO PRN (20:42)
[2024-05-20] MEDS ORDERED: diazePAM 5 MG TABLET PO SCH (06:00)
[2024-05-20] MEDS ORDERED: ACETAMINOPHEN 325 MG TABLET (FP) PO PRN (13:05)
[2024-05-20] MEDS: GABAPENTIN 400 MG CAPSULE PO SCH (13:45)
[2024-05-20] MEDS: LIDOCAINE 4% PATCH TP SCH (13:46)
[2024-05-20] MEDS: METHYL SALICYLATE/MENTHOL 30 GM TUBE TP SCH (14:34)
[2024-05-20] MEDS: LIDOCAINE PATCH REMOVAL MC SCH (21:57)
[2024-05-21] MEDS: chlordiazePOXIDE HCL 25 MG CAPSULE PO SCH (05:45)
[2024-05-21] MEDS ORDERED: diazePAM 5 MG TABLET PO SCH (06:00)
[2024-05-21] MEDS: DIPHENOXYLATE 2.5/ATROPINE.025 1 COMBO TABLET PO ONE (10:12)
[2024-05-22] MEDS ORDERED: chlordiazePOXIDE HCL 10 MG CAPSULE PO PRN
[2024-05-22] MEDS: chlordiazePOXIDE HCL 10 MG CAPSULE PO SCH (05:45)
[2024-05-22] MEDS ORDERED: diazePAM 5 MG TABLET PO ONE (06:00)
[2024-05-22] MEDS: IBUPROFEN 600 MG TABLET (FP) PO PRN (17:24)
[2024-05-23] MEDS: chlordiazePOXIDE HCL 10 MG CAPSULE PO SCH (05:55)
[2024-05-23] MEDS: hydrOXYzine PAMOATE 25 MG CAPSULE (FP) PO PRN (10:05)
[2024-05-23] MEDS: INSULIN ASPART SLIDING SCALE (NOVOLOG) 1 VIAL SQ SCH (17:18)
[2024-05-23] MEDS: chlordiazePOXIDE HCL 10 MG CAPSULE PO ONE (22:03)
[2024-05-24] MEDS: chlordiazePOXIDE HCL 10 MG CAPSULE PO ONE (05:39)
[2024-05-24 12:32] VITALS: BP 151/92; PULSE 100; RESP 18; TEMP 98.6
== END 2024-05-24 14:55 | disposition home or self-care (01) | DRG 774 ==
LOC: YASAS 09:17 → Y3N 11:29
PROVIDERS: ADMIT Allergy & Immunology; ATTEND Psychiatry & Neurology Pain Medicine
PROC: HZ2ZZZZ Detoxification Services for Substance Abuse Treatment (ICD-10-PCS; principal; 2024-05-18)
DX: F10.230 Alcohol dependence with withdrawal, uncomplicated (principal); F14.20 Cocaine dependence, uncomplicated; F17.210 Nicotine dependence, cigarettes, uncomplicated; F32.9 Major depressive disorder, single episode, unspecified; F41.9 Anxiety disorder, unspecified; F19.980 Other psychoactive substance use, unspecified with psychoactive substance-induced anxiety disorder; I10 Essential (primary) hypertension; E11.9 Type 2 diabetes mellitus without complications; M54.59 Other low back pain; G89.29 Other chronic pain; K21.9 Gastro-esophageal reflux disease without esophagitis; G47.30 Sleep apnea, unspecified; M54.30 Sciatica, unspecified side; R00.0 Tachycardia, unspecified; R26.2 Difficulty in walking, not elsewhere classified; Z99.89 Dependence on other enabling machines and devices; Z79.84 Long term (current) use of oral hypoglycemic drugs; Z86.73 Personal history of transient ischemic attack (TIA), and cerebral infarction without residual deficits; Z91.013 Allergy to seafood; Z56.0 Unemployment, unspecified; Z59.00 Homelessness unspecified
CPT/HCPCS: 36415; 71045-TC-FY; 80053; 80305; 80307; 82962; 85027; 86593; 86780; 87811; 93005; 93010

== ENCOUNTER 2024-07-06 14:20 | Inpatient (IN) | payer BC ==
[2024-07-06 15:21] VITALS: BMI 27.2
[2024-07-06] MEDS ORDERED: ACETAMINOPHEN 325 MG TABLET (FP) PO PRN (15:48)
[2024-07-06] MEDS ORDERED: MAGNESIUM HYDROX 2400MG/30ML ORAL SUSPENSION 30 ML CUP PO PRN (15:48)
[2024-07-06] MEDS ORDERED: LOPERAMIDE HCL 2 MG CAPSULE PO PRN (15:48)
[2024-07-06] MEDS ORDERED: NALOXONE (NARCAN) HCL 4 MG/0.1 ML SPRAY NS PRN (15:48)
[2024-07-06] MEDS ORDERED: guaiFENesin 600 MG TABLET.ER (FP) PO PRN (15:48)
[2024-07-06] MEDS ORDERED: NICOTINE POLACRILEX 2 MG GUM BUC PRN (15:48)
[2024-07-06] MEDS ORDERED: POLYETHYLENE GLYCOL (HEALTHYLAX) 3350 17 GM PACKET PO PRN (15:48)
[2024-07-06] MEDS ORDERED: BISMUTH SUBSALICYLATE 524 MG/30 ML PO PRN (15:48)
[2024-07-06] MEDS ORDERED: BENZONATATE 200 MG CAPSULE PO PRN (15:48)
[2024-07-06] MEDS ORDERED: IBUPROFEN 400 MG TABLET (FP) PO PRN (15:48)
[2024-07-06] MEDS ORDERED: BENZOCAINE/MENTHOL (CHLORASEPTIC ) LOZENGE MM PRN (15:48)
[2024-07-06] MEDS ORDERED: FLUTICASONE PROP 0.05% 16 GM NASAL SPRAY NS PRN (15:51)
[2024-07-06] MEDS ORDERED: OXYCODONE PO PRN (15:51)
[2024-07-06] MEDS ORDERED: chlordiazePOXIDE HCL 25 MG CAPSULE ONE (16:40)
[2024-07-06] MEDS ORDERED: METHOCARBAMOL 500 MG TABLET ONE (16:40)
[2024-07-06] MEDS ORDERED: hydrOXYzine PAMOATE 25 MG CAPSULE (FP) PO ONE (16:41)
[2024-07-06] MEDS: chlordiazePOXIDE HCL 25 MG CAPSULE PO SCH (16:55)
[2024-07-06] MEDS: METHOCARBAMOL 500 MG TABLET PO PRN (16:56)
[2024-07-06] MEDS: hydrOXYzine PAMOATE 25 MG CAPSULE (FP) PO PRN (16:56)
[2024-07-06] MEDS ORDERED: PRENATAL VITAMINS W/ FOLIC ACID TABLET (FP) PO ONE (16:56)
[2024-07-06] MEDS: PRENATAL VITAMINS W/ FOLIC ACID TABLET (FP) PO SCH (16:57)
[2024-07-06] MEDS: NALOXONE (NYS OPIOID OVERDOSE PROGRAM) 4 MG/0.1 ML SPRAY NS ONE (17:16)
[2024-07-06] MEDS: MELATONIN 5 MG TABLETS PO SCH (22:15)
[2024-07-06] MEDS: GABAPENTIN 300 MG CAPSULE PO SCH (22:15)
[2024-07-06] MEDS: THIAMINE 100 MG TABLET PO SCH (22:15)
[2024-07-06] MEDS: ATORVASTATIN CA 20 MG TABLET (FP) PO SCH (22:15)
[2024-07-07] MEDS: NIFEdipine E.R 60 MG TABLET PO SCH (10:08)
[2024-07-07] MEDS: PANTOPRAZOLE 20 MG TABLET PO SCH (10:08)
[2024-07-07] MEDS: LISINOPRIL 20 MG TABLET PO SCH (10:08)
[2024-07-07] MEDS: cloNIDine HCL 0.1 MG TABLET PO PRN (12:34)
[2024-07-07] MEDS: ONDANSETRON *ODT* 4 MG TABLET SL PRN (12:37)
[2024-07-07 13:24] LABS: CHLORIDE 106 mmol/L (98-107); HEMATOCRIT 45.6 % (35.4-49); HEMOGLOBIN 15.4 GM/dL (11.7-16.9); MCH 29.5 pg (25.7-33.7); MCHC 33.7 g/dl (32.0-35.9); MEAN CELL VOLUME 87.5 fl (80-96); MEAN PLT VOLUME 10.3 fl (7.5-11.1); PLATELET COUNT 213 10^3/uL (134-434); POTASSIUM 3.3 mmol/L (3.5-5.1); RBC 5.21 M/mm3 (4.00-5.60); RDW 15.3 % (11.9-15.9); SODIUM 141 mmol/L (136-145); WHITE BLOOD COUNT 5.7 K/mm3 (4.0-10.0)
[2024-07-07 13:31] LABS: ALBUMIN 3.2 g/dl (3.4-5.0); ANION GAP 5 mmol/L (4-13); BLOOD UREA NITROGEN 11.7 mg/dL (7-18); CALCIUM 8.9 mg/dL (8.5-10.1); CO2 30 mmol/L (21-32); GLUCOSE,RANDOM 197 mg/dL (74-106)
[2024-07-07 13:35] LABS: CREATININE 1.1 mg/dL (0.55-1.3); SGOT/AST 17 U/L (15-37); SGPT/ALT 27 U/L (13-61); TOT PROT 6.1 g/dl (6.4-8.2)
[2024-07-07 13:36] LABS: ALK PHOS 54 U/L (45-117)
[2024-07-07] MEDS: NALOXONE (NYS OPIOID OVERDOSE PROGRAM) 4 MG/0.1 ML SPRAY NS ONE (13:49)
[2024-07-07] MEDS ORDERED: NALOXONE (NYS OPIOID OVERDOSE PROGRAM) 4 MG/0.1 ML SPRAY NS PRN (14:33)
[2024-07-07 15:44] LABS: BILIRUBIN,TOTAL 0.6 mg/dL (0.2-1)
[2024-07-07] MEDS: metFORMIN HCL 500 MG TABLET (FP) PO SCH (17:16)
[2024-07-08] MEDS: chlordiazePOXIDE HCL 25 MG CAPSULE PO PRN (05:29)
[2024-07-08] MEDS: chlordiazePOXIDE HCL 25 MG CAPSULE PO SCH (05:56)
[2024-07-08] MEDS: IBUPROFEN 600 MG TABLET (FP) PO PRN (07:36)
[2024-07-08] MEDS: POTASSIUM CHLORIDE ORAL LIQUID 20 MEQ/15 ML PO ONE (10:24)
[2024-07-08] MEDS: LACTULOSE 20 GM/30 ML UDC (FOR ORAL USE ONLY) PO SCH (13:31)
[2024-07-08] MEDS: MAG HYDROX/AL HYDROX/SIMETH 30 ML UNIT-DOSE CUP PO PRN (16:36)
[2024-07-08] MEDS: diphenhydrAMINE HCL 25 MG CAPSULE (FP) PO ONE (18:54)
[2024-07-08] MEDS: DICYCLOMINE HCL 10 MG CAPSULE PO PRN (22:17)
[2024-07-09] MEDS: chlordiazePOXIDE HCL 10 MG CAPSULE PO SCH (06:01)
[2024-07-09 11:27] LABS: POTASSIUM 4.1 mmol/L (3.5-5.1)
[2024-07-09 11:30] LABS: BLOOD UREA NITROGEN 13.5 mg/dL (7-18)
[2024-07-09 11:34] LABS: CREATININE 0.9 mg/dL (0.55-1.3)
[2024-07-09] MEDS: chlordiazePOXIDE HCL 10 MG CAPSULE PO PRN (13:39)
[2024-07-10] MEDS: chlordiazePOXIDE HCL 10 MG CAPSULE PO SCH (06:00)
[2024-07-10] MEDS: INSULIN ASPART SLIDING SCALE (NOVOLOG) 1 VIAL SQ SCH (18:04)
[2024-07-10 18:19] VITALS: RESP 18
[2024-07-11] MEDS: chlordiazePOXIDE HCL 10 MG CAPSULE PO ONE (05:24)
[2024-07-11 08:35] VITALS: BP 132/86; PULSE 100; TEMP 98.3
== END 2024-07-11 12:24 | disposition other institution (70) | DRG 774 ==
LOC: YASAS 14:20 → Y3N 16:34
PROVIDERS: ADMIT Allergy & Immunology; ATTEND Surgery
PROC: HZ2ZZZZ Detoxification Services for Substance Abuse Treatment (ICD-10-PCS; principal; 2024-07-06)
DX: F10.230 Alcohol dependence with withdrawal, uncomplicated (principal); F14.20 Cocaine dependence, uncomplicated; F17.210 Nicotine dependence, cigarettes, uncomplicated; F19.24 Other psychoactive substance dependence with psychoactive substance-induced mood disorder; E87.6 Hypokalemia; E78.5 Hyperlipidemia, unspecified; E78.00 Pure hypercholesterolemia, unspecified; G47.30 Sleep apnea, unspecified; I10 Essential (primary) hypertension; K21.9 Gastro-esophageal reflux disease without esophagitis; E11.9 Type 2 diabetes mellitus without complications; Z79.84 Long term (current) use of oral hypoglycemic drugs; Z86.73 Personal history of transient ischemic attack (TIA), and cerebral infarction without residual deficits; Z59.00 Homelessness unspecified
CPT/HCPCS: 36415; 80048; 80053; 80305; 80307; 82140; 82962; 85027; 86593; 86780; 87811; 93005; 93010; Q0162

== ENCOUNTER 2024-07-11 12:33 | Inpatient (IN) | payer BC ==
[2024-07-11] MEDS ORDERED: BENZOCAINE/MENTHOL (CHLORASEPTIC ) LOZENGE MM PRN (16:35)
[2024-07-11] MEDS ORDERED: MAGNESIUM HYDROX 2400MG/30ML ORAL SUSPENSION 30 ML CUP PO PRN (16:35)
[2024-07-11] MEDS ORDERED: guaiFENesin 600 MG TABLET.ER (FP) PO PRN (16:35)
[2024-07-11] MEDS ORDERED: NALOXONE (NARCAN) HCL 4 MG/0.1 ML SPRAY NS PRN (16:35)
[2024-07-11] MEDS ORDERED: IBUPROFEN 400 MG TABLET (FP) PO PRN (16:35)
[2024-07-11] MEDS ORDERED: POLYETHYLENE GLYCOL (HEALTHYLAX) 3350 17 GM PACKET PO PRN (16:35)
[2024-07-11] MEDS ORDERED: BENZONATATE 200 MG CAPSULE PO PRN (16:35)
[2024-07-11] MEDS ORDERED: MAG HYDROX/AL HYDROX/SIMETH 30 ML UNIT-DOSE CUP PO PRN (16:35)
[2024-07-11] MEDS ORDERED: LOPERAMIDE HCL 2 MG CAPSULE PO PRN (16:35)
[2024-07-11] MEDS ORDERED: NALOXONE HCL 0.4 MG/ML VIAL IVPUSH PRN (16:35)
[2024-07-11] MEDS ORDERED: NICOTINE POLACRILEX 4 MG GUM BUC PRN (16:35)
[2024-07-11] MEDS ORDERED: NICOTINE 21 MG/24 HOURS TOPICAL PATCH TD PRN (16:35)
[2024-07-11] MEDS ORDERED: NICOTINE POLACRILEX 4 MG LOZENGE BC PRN (16:35)
[2024-07-11] MEDS ORDERED: OXYCODONE PO PRN (16:39)
[2024-07-11] MEDS: IBUPROFEN 600 MG TABLET (FP) PO PRN (21:39)
[2024-07-11] MEDS: THIAMINE 100 MG TABLET PO SCH (21:39)
[2024-07-11] MEDS: MELATONIN 5 MG TABLETS PO SCH (21:39)
[2024-07-11] MEDS: ATORVASTATIN CA 20 MG TABLET (FP) PO SCH (21:39)
[2024-07-11] MEDS: FLUTICASONE PROP 0.05% 16 GM NASAL SPRAY NS PRN (21:40)
[2024-07-11] MEDS: METHOCARBAMOL 500 MG TABLET PO PRN (21:40)
[2024-07-11] MEDS: hydrOXYzine PAMOATE 25 MG CAPSULE (FP) PO PRN (21:40)
[2024-07-11] MEDS: GABAPENTIN 300 MG CAPSULE PO ONE (22:33)
[2024-07-12] MEDS: PRENATAL VITAMINS W/ FOLIC ACID TABLET (FP) PO SCH (10:08)
[2024-07-12] MEDS: LISINOPRIL 20 MG TABLET PO SCH (10:08)
[2024-07-12] MEDS: PANTOPRAZOLE 20 MG TABLET PO SCH (10:08)
[2024-07-12] MEDS: NIFEdipine E.R 60 MG TABLET PO SCH (10:08)
[2024-07-12] MEDS: SERTRALINE HCL 50 MG TABLET (FP) PO ONE (14:25)
[2024-07-12] MEDS: GABAPENTIN 300 MG CAPSULE PO SCH (14:25)
[2024-07-12] MEDS: LIDOCAINE 4% PATCH TP SCH (16:09)
[2024-07-12] MEDS: LIDOCAINE PATCH REMOVAL MC SCH (21:22)
[2024-07-12] MEDS: LACTULOSE 20 GM/30 ML UDC (FOR ORAL USE ONLY) PO SCH (21:23)
[2024-07-13] MEDS: metFORMIN HCL 500 MG TABLET (FP) PO SCH (06:17)
[2024-07-13] MEDS: SERTRALINE HCL 50 MG TABLET (FP) PO SCH (10:15)
[2024-07-19] MEDS ORDERED: GABAPENTIN 300 MG CAPSULE PO SCH (14:05)
[2024-07-19] MEDS: GABAPENTIN 300 MG CAPSULE PO SCH ×2 (15:20→15:25)
[2024-07-19] MEDS: BACLOFEN 10 MG TABLET (FP) PO SCH (21:28)
[2024-07-21] MEDS: RIFAXIMIN 550 MG TABLET PO SCH (21:42)
[2024-07-24] MEDS: metFORMIN HCL 500 MG TABLET (FP) PO SCH (16:39)
[2024-07-26] MEDS: AMOX TR/POT CLAV 500MG/125MG TABLETS (FP) PO SCH (17:02)
[2024-07-29] MEDS: ACETAMINOPHEN 325 MG TABLET (FP) PO PRN (09:54)
[2024-08-02] MEDS ORDERED: OXYMETAZOLINE 0.05% NASAL SOLUTION 15 ML BOTTLE NS PRN (12:18)
[2024-08-03] MEDS: AMOX TR/POT CLAV 500MG/125MG TABLETS (FP) PO SCH (05:52)
[2024-08-04 06:49] VITALS: RESP 18; TEMP 97.7
[2024-08-04] MEDS: NALOXONE (NYS OPIOID OVERDOSE PROGRAM) 4 MG/0.1 ML SPRAY NS PRN (09:10)
[2024-08-04] MEDS: NALOXONE (NARCAN) HCL 4 MG/0.1 ML SPRAY NS ONE (09:17)
[2024-08-04 09:26] VITALS: BP 132/75; PULSE 100
== END 2024-08-04 09:33 | disposition home or self-care (01) | DRG 772 ==
LOC: YASAS 12:33 → Y3W 12:34
PROVIDERS: ADMIT Psychiatry & Neurology Pain Medicine; ATTEND Psychiatry & Neurology Pain Medicine
PROC: HZ42ZZZ Group Counseling for Substance Abuse Treatment, Cognitive-Behavioral (ICD-10-PCS; principal; 2024-07-11)
DX: F10.20 Alcohol dependence, uncomplicated (principal); F14.20 Cocaine dependence, uncomplicated; F13.20 Sedative, hypnotic or anxiolytic dependence, uncomplicated; F17.210 Nicotine dependence, cigarettes, uncomplicated; F19.24 Other psychoactive substance dependence with psychoactive substance-induced mood disorder; I10 Essential (primary) hypertension; E78.5 Hyperlipidemia, unspecified; E11.9 Type 2 diabetes mellitus without complications; K21.9 Gastro-esophageal reflux disease without esophagitis; Z79.84 Long term (current) use of oral hypoglycemic drugs; M25.561 Pain in right knee; M25.562 Pain in left knee; M54.40 Lumbago with sciatica, unspecified side; G89.29 Other chronic pain; Z86.73 Personal history of transient ischemic attack (TIA), and cerebral infarction without residual deficits; Z99.89 Dependence on other enabling machines and devices
CPT/HCPCS: 82140; 82962; J0475